=== PATIENT | male | born 1940 | race Caucasian/White ===

== ENCOUNTER → 2018-03-10 14:17 | Outpatient (CLI) | payer MEDICARE, BC, SELFPAY ==
--- NOTE | 2018-03-10 14:21 | DI.RAD.S_ITS ---
PROCEDURE: XR LUMBAR SPINE MIN 4V INDICATIONS: lower spinal pain TECHNIQUE: 5 views of the lumbar spine were acquired. COMPARISON: None. FINDINGS: Bones: No fracture or focal osseous destruction. Anatomic alignment. Diffuse facet arthropathy. Endplate sclerosis and spurring with moderate narrowing of the L4-L5 disc space and L1-L2 disc space. Mild L2-L3 disc space narrowing. Soft tissues: Overlying bowel gas pattern is normal. No suspicious soft tissue calcifications. Oblique images: No pars defects. IMPRESSION: Multilevel lumbar disc degeneration and facet arthropathy, most pronounced at L1-L2. Dictated by: Dilip Malhotra M.D. on 03/10/2018 at 16:27 Approved by: Dilip Malhotra M.D. on 03/10/2018 at 16:28
== END ==
PROVIDERS: PCP Internal Medicine; Visit Provider Physical Medicine & Rehabilitation
DX: M54.5 Low back pain (principal); M51.16 Intervertebral disc disorders with radiculopathy, lumbar region; M47.26 Other spondylosis with radiculopathy, lumbar region; M47.27 Other spondylosis with radiculopathy, lumbosacral region
CPT/HCPCS: 72110; 99215

== ENCOUNTER 2018-04-26 09:18 | Outpatient (CLI) | payer MEDICARE, BC, SELFPAY ==
[2018-04-26] VITALS (8 sets, daily range): BP systolic 119–129; BP diastolic 73–83; PULSE 70–80; RESP 16–18; TEMP 36.6; O2SAT 98–100
--- NOTE | 2018-04-26 09:21 | DI.RAD.S_ITS ---
PROCEDURE: PAIN L/S FACET INJ/BLK 1ST SULMA COMPARISON: None. INDICATIONS: SPONDYLOSIS FINDINGS: Fluoroscopic spot filming was performed to verify placement of spinal needles at the L3-L4, L4-L5 level(s), as labeled on the films. Appropriate location(s) of the needle tip(s) was confirmed by injection of iodinated contrast. Dictated by: Dilip Malhotra M.D. on 04/26/2018 at 12:58 Approved by: Dilip Malhotra M.D. on 04/26/2018 at 12:59
[2018-04-26] MEDS: MIDAZOLAM 5 MG/5 ML VIAL IV (10:18)
[2018-04-26] MEDS: BUPIVACAINE 0.5% (PF) VIAL 2 ML INJ (10:28)
[2018-04-26] MEDS: BETAMETHASONE 30 MG/5 ML MDV 12 MG INJ (10:29)
[2018-04-26] MEDS: LIDOCAINE 1% 20 ML INJ 10 ML INJ (10:29)
[2018-04-26] MEDS: IOPAMIDOL 15 ML VIAL 3 ML INJ (10:29)
[2018-04-26] MEDS: fentaNYL 100 MCG/2 ML INJ 50 MCG IV (10:30)
--- NOTE | 2018-04-26 10:40 | P.PCN_ITS ---
Procedures Date/Time Date of procedure: 04/26/18 Time of procedure: 10:38 General Procedure description: PREOP DIAGNOSIS 1. FACET ARTHROPATHY 2. AXIAL LBP 3. MULTILEVEL DDD POST OP DIAGNOSIS 1. FACET ARTHROPATHY 2. AXIAL LBP 3. MULTILEVEL DDD PROCEDURES 1. FLUORSCOPICALLY GUIDED CONTRAST CONTROLLED FACET JOINT INJECTIONS BILATERAL L3/4, L4/5 PHYSICIAN: Randolph Crump DO INDICATIONS: Marisa is referred by Dr. Garcia for treatment of Axial LBP FINDINGS Multilevel Facet Arthropathy with Clinically significant axial LBP DESCRIPTION OF PROCEDURE Fluoroscopically guided, contrast-controlled bilateral L3/4, L4/5 facet joint injections. Following denial of allergy and review of potential side effects and complications, including, but not necessarily limited to, infection, allergic reaction, local tissue breakdown, stroke, temporary or permanent nerve injury, paralysis, and possible , the patient indicated that the patient understood and agreed to proceed. An informed consent document was signed by the patient, witnessed by a nurse, and placed in the patient's chart. Additionally, other treatment options including medications, modalities, and physical therapy were reviewed with the patient. After review of previous anaesthesic history and IV conscious sedation the patient was deemed safe to proceed with todays procedure with IV conscious sedation as ASA class II designation. Safety time-out was performed to confirm patient ID, procedure to be performed and site of procedure. IV sedation was accomplished with a combination of 3mg of Versed and 50mcg of Fentanyl was administered by the RN after DO order, titrated to patient comfort during the course of the procedure while the patient remained responsive to all verbal commands. In the prone position, following sterile prep and drape of the lumbar region, the posterior aspect of the L3/4, L4/5 facet joints were identified fluoroscopically. The skin was anesthetized via a 25-gauge 1.5-inch needle with 1% lidocaine solution into the corresponding facet joints. At this point, a 22- gauge 3.5-inch spinal needle was atraumatically introduced and advanced under fluoroscopic guidance into the corresponding facet joints. Following negative aspiration, injections of approximately 0.2-cc of Isovue 200 confirmed interarticular placement without vascular uptake. The identical procedure was then performed at the L3/4, L4/5 facet joints on the left. Radiological data, including multiple fluoroscopic views of the lumbosacral spine, reveal a spinal needle at the L3/4, L4/5 facet joints bilaterally. Subsequent views show flow of contrast material both superiorly and inferiorly within the joint space without vascular or intrathecal uptake. At this point, a total of 0.5 cc including a mixture of 0.25 cc Marcaine and 0.25 cc betamethasone was injected without complication into each of the corresponding facet joints. The patient tolerated the procedure well without signs or symptoms of complications prior to transfer to the recovery area continued monitoring without incident. The patient was then transferred to the recovery area where they were observed for an appropriate period of time after the injection. The patient reported a VAS score of 7 prior to the procedure and a post-procedure VAS of 0. Total Fluoroscopy Time: 20.3 seconds Total Conscious Sedation Time: 24min POST OP INSTRUCTIONS The patient was provided a Pain Log to continue to record their response to the target-specific procedure prior to follow-up visit with their referring physician. Additionally, specific post-injection care instructions and a contact number to our office were provided if concerns arise regarding possible complications associated with the procedure are suspected. Randolph Crump DO Complications: none
--- NOTE | 2018-04-26 10:43 | PC.NURSE ---
pt tolerated procedure well. Able to get off gurney and into w/c with minimal assist. Pt transferred to pre procedure room with Amanda SAINI for continued monitoring.
--- NOTE | 2018-04-27 16:20 | PC.NURSE ---
Follow up call made post procedure. Pt reports feeling like I'm 41years old again. he says he can put on his own socks and denies any pain. Pt denies any side effects from steroids.
== END 2018-04-26 11:06 | disposition home or self-care (01) ==
LOC: RAD 09:21
PROVIDERS: PCP Internal Medicine; Visit Provider Physical Medicine & Rehabilitation
DX: M47.816 Spondylosis without myelopathy or radiculopathy, lumbar region (principal); M47.817 Spondylosis without myelopathy or radiculopathy, lumbosacral region; M54.5 Low back pain; M51.36 Other intervertebral disc degeneration, lumbar region; M96.1 Postlaminectomy syndrome, not elsewhere classified
CPT/HCPCS: 64493; 64494; 99152; J0702; J2250; J3010

== ENCOUNTER 2018-05-25 11:49 | Outpatient (CLI) | payer MEDICARE, BC, SELFPAY ==
--- NOTE | 2018-05-25 11:51 | DI.RAD.S_ITS ---
PROCEDURE: PAIN L/S FACET INJ/BLK 1ST SULMA INDICATIONS: SPONDYLOSIS FINDINGS: 5 intraoperative fluoroscopy images demonstrate placement of needles at L3, L4 and L5 bilaterally for median branch block. IMPRESSION: Fluoroscopy for pain management. Dictated by: Emma Garcia M.D. on 05/25/2018 at 15:42 Approved by: Emma Garcia M.D. on 05/25/2018 at 15:44
[2018-05-25 12:34] VITALS: BP 124/76; PULSE 69; RESP 16; TEMP 36.3; O2SAT 99
--- NOTE | 2018-05-25 12:59 | DI.RAD.S_ITS ---
PROCEDURE: XR LUMBAR SPINE MIN 4V INDICATIONS: Recent Fall with LBP and Coccxy pain TECHNIQUE: 5 views of the lumbar spine were acquired. COMPARISON: [facility], CR, XR LUMBAR SPINE MIN 4V, 03/10/2018, 14:22. FINDINGS: Bones: 5 nonrib-bearing vertebrae are present. There is normal bony alignment. Mildly displaced fracture of coccyx is noted. No vertebral body compression fractures. No suspicious bony lesions. There is mild to moderate degenerative disc disease scattered in the lower thoracic and lumbar spine. Moderate post severe facet arthropathy at L3-L4, L4-L5 and L5-S1. Soft tissues: Overlying bowel gas pattern is normal. No suspicious soft tissue calcifications. Oblique images: No pars defects. IMPRESSION: 1. Mildly displaced fracture of coccyx. 2. Degenerative changes as described. Dictated by: Emma Garcia M.D. on 05/25/2018 at 17:32 Approved by: Emma Garcia M.D. on 05/25/2018 at 17:35
[2018-05-25 13:40] VITALS: BP 136/72; PULSE 73; RESP 18; O2SAT 99
[2018-05-25] MEDS: MIDAZOLAM 5 MG/5 ML VIAL IV (13:40)
[2018-05-25] MEDS: BUPIVACAINE 0.5% (PF) VIAL 2 ML INJ (13:43)
[2018-05-25] MEDS: fentaNYL 100 MCG/2 ML INJ 50 MCG IV (13:44)
[2018-05-25] MEDS: LIDOCAINE 1% 20 ML INJ 10 ML INJ (13:44)
[2018-05-25 13:45] VITALS: BP 116/81; PULSE 71; RESP 18; O2SAT 99
[2018-05-25] MEDS: IOPAMIDOL 15 ML VIAL INJ (13:45)
[2018-05-25] MEDS: BETAMETHASONE 30 MG/5 ML MDV 12 MG INJ (13:45)
[2018-05-25 13:50] VITALS: BP 125/78; PULSE 74; RESP 18; O2SAT 99
--- NOTE | 2018-05-25 14:02 | PM.PROC.1 ---
Procedures Date/Time Date of procedure: 05/25/18 Time of procedure: 14:03 General Procedure description: POST OP DIAGNOSIS 1. FACET ARTHROPATHY PROCEDURES 1. BILATERAL L3, L4 AND L5 MB BLOCKS PHYSICIAN: DO FREIDA King Enrique is referred by Dr. Garcia for treatment of Bilateral Axial LBP. DESCRIPTION OF PROCEDURE Fluoroscopically guided, contrast-controlled bilateral L3, L4 AND L5 medial branch blocks with 0.5cc of 0.5% Marcaine. Following denial of allergy and review of potential side effects and complications, including, but not necessarily limited to, infection, allergic reaction, local tissue breakdown, nerve injury, paralysis, stroke and possible , the patient indicated that the patient understood and agreed to proceed. An informed consent document was signed by the patient, witnessed by a nurse, and placed in the patient's chart. After review of previous anaesthesic history and IV conscious sedation the patient was deemed safe to proceed with todays procedure with IV conscious sedation as ASA class II designation. Safety time-out was performed to confirm patient ID, procedure to be performed and site of procedure. IV sedation was accomplished with a combination of 3mg of Versed and 50mcg of Fentanyl was administered by the RN after DO order, titrated to patient comfort during the course of the procedure while the patient remained responsive to all verbal commands In the prone position, following sterile prep and drape of the lumbar region, the right L3, L4 and L5 anatomical location of the medial branch of the dorsal ramus was identified fluoroscopically. Subsequently an anesthetic skin wheal using 1% lidocaine solution was initiated at each of the anatomical spots. Subsequently then a 22-gauge 3.5-inch spinal needle was atraumatically introduced and advanced under fluoroscopic guidance at each of the corresponding sites at the right L3, L4 and L5 MB. After negative aspiration, 0.2 cc of Isovue 200 was injected, confirming placement without vascular or intrathecal uptake. Subsequently then 0.5 cc of 0.5% Marcaine solution was injected at each of the corresponding sites at the right L3, L4 and L5 medial branch locations. The identical procedure was replicated on the left. The patient tolerated the procedure well without signs or symptoms of complications. The patient tolerated the procedure well without signs or symptoms of complications prior to transfer to the recovery area continued monitoring without incident. Post-procedure, the patient was monitored initiating provocative activities to measure the amount of relief from block of the facetogenic pain. The patient reported a VAS of 7 prior to the procedure and a post-procedure VAS of 1. It has been a pleasure to assist in the diagnostic and therapeutic care of your patient. Total Fluoroscopy Time: 24.8 seconds Total Conscious Sedation Time: 24min POST OP INSTRUCTIONS The patient was provided with a Pain Log to complete over the next several hours and subsequent days prior to the patient's follow up with the ordering physician. If the patient has mutual fund analyst relief to the solution applied, then they may be a candidate for medial branch rhizotomy. The patient is aware, was provided, once again, with a Pain Log and will follow up with the referring physician for review and clinical correlation Randolph Crump DO Complications: none
[2018-05-25 14:05] VITALS: BP 148/83; PULSE 72; RESP 16; O2SAT 99
--- NOTE | 2018-05-25 14:07 | PC.NURSE ---
ACCEPTED CARE OF PT IN POST PROC AREA IN STABLE CONDITION
--- NOTE | 2018-05-25 14:08 | PC.NURSE ---
Pt tolerated procedure well. Able to get off table with minimal assist. Transferred pt via wheelchair awake and alert to pre procedure room for continued monitoring with Amanda SAINI.
[2018-05-25 14:10] VITALS: BP 138/85; PULSE 72; RESP 16; O2SAT 98
== END 2018-05-25 14:20 | disposition home or self-care (01) ==
LOC: RAD 11:50
PROVIDERS: PCP Internal Medicine; Visit Provider Physical Medicine & Rehabilitation
DX: M47.816 Spondylosis without myelopathy or radiculopathy, lumbar region (principal); M47.817 Spondylosis without myelopathy or radiculopathy, lumbosacral region
CPT/HCPCS: 64493; 64494; 72110; 99152; J0702; J2250; J3010

== ENCOUNTER → 2018-06-24 13:01 | Outpatient (CLI) | payer MEDICARE, BC, SELFPAY ==
--- NOTE | 2018-06-24 13:03 | DI.MRI.S_ITS ---
PROCEDURE: MR LUMBAR SPINE WO/W CON INDICATIONS: Spondylosis with radiculopathy, lumbosacral TECHNIQUE: Noncontrast sagittal T1 spin echo and T2 fast spin echo, sagittal STIR, axial T1 and T2 fast spin echo through the lumbar spine. In cases with scoliosis, additional coronal T2 fast spin echo may be performed. Dedicated oblique coronal images of the sacrum were obtained with T1-weighted and STIR images. After the administration of contrast, sagittal and axial T1 spin echo with fat saturation through the lumbar spine. COMPARISON: [facility], CR, XR LUMBAR SPINE MIN 4V, 05/25/2018, 12:57. [facility], CR, XR LUMBAR SPINE MIN 4V, 03/10/2018, 14:22. Outside Facility, RG, MRI L-SPINE W/WO CONTRAST, 06/30/2017, 13:50. FINDINGS: Image quality: Excellent. Alignment and curvature: Minimal retrolisthesis is seen at the L1-L2 level. Marrow: Marrow is of normal overall signal. No acute vertebral body compression fractures. No suspicious marrow enhancement. Fatty metaplasia can be seen, particularly involving the sacrum. Spinal cord: Conus medullaris terminates at the L1 level. Visualized spinal cord demonstrates normal signal, without suspicious enhancement. Paraspinous soft tissues: No paravertebral masses or abnormal enhancement. Left-sided simple appearing renal cysts are seen, which measure up to 3.8 cm. Distal aortic ectasia is seen, which measures up to 2.9 cm. T12-L1: Mild loss of disc height is seen. Loss of disc signal is seen. Moderate generalized disc bulge is seen. Endplate edema can be seen at this level, which is slightly improved compared to the prior outside examination. There is stable enhancement seen associated with the endplate edema. Chronic appearing Schmorl's nodes are seen. L1-L2: Moderate loss of disc height is seen. Loss of disc signal is seen. Mild endplate edema can be seen, with associated mild enhancement. Moderate generalized disc bulge is seen. Mild facet joint hypertrophy is seen. Moderate bilateral neural foraminal narrowing is seen. [id number]-nnaarksi central canal narrowing is seen. When comparison is made with the prior examination, these findings are similar. L2-L3: Mild loss of disc height is seen. Loss of disc signal is seen. Endplate edema can be seen, which is overall similar to the 2018 examination, with slight decrease in L2 and slight increase within L3. There is associated mild postcontrast enhancement. Moderate disc bulge is seen, which is eccentric to the right. There is mild to moderate right-sided and mild left-sided neural foraminal narrowing seen. Mild central canal narrowing is seen. When comparison is made with the prior examination, these findings are similar. L3-L4: The disc height is well-preserved. Loss of disc signal is seen at this level. Moderate generalized disc bulge is seen. There is a mild central disc protrusion. Moderate facet joint hypertrophy is seen. At least moderate bilateral neural foraminal narrowing is seen. Mild central canal narrowing is seen. Mild enhancement of the posterior elements can be seen at this level, as on series 9 image 11 and on series 10 image 23. This enhancement is similar to the prior examination. L4-L5: Mild to moderate loss of disc height and disc signal are seen. Moderate disc bulge is seen. There is a faintly seen annular fissure present posteriorly, with associated enhancement. There is mild to moderate bilateral neural foraminal narrowing seen. Mild central canal narrowing is seen. When comparison is made with the prior examination, these findings are similar. L5-S1: The disc height is well-preserved. Loss of disc signal is seen at this level. Mild to moderate disc bulge is seen, which is eccentric to the right. There is mild to moderate facet hypertrophy seen. There is moderate left-sided and no significant right-sided neural foraminal narrowing seen at the significant central canal narrowing is seen. When comparison is made with the prior examination, these findings are similar. IMPRESSION: Multiple levels of degenerative change are seen, which are similar to outside MRI one year previously. Endplate edema and enhancement can be seen superiorly, which is overall mildly decreased compared to the prior examination, which is attributed to degenerative change. Differential diagnosis includes neoplasm, yet this is considered to be less likely. There is also stable enhancement seen involving the posterior elements centrally at the L3-L4 level. Dictated by: Hoang Carr M.D. on 06/24/2018 at 13:49 Approved by: Hoang Carr M.D. on 06/24/2018 at 14:07
== END ==
PROVIDERS: PCP Internal Medicine; Visit Provider Physical Medicine & Rehabilitation
DX: M47.27 Other spondylosis with radiculopathy, lumbosacral region (principal); M47.26 Other spondylosis with radiculopathy, lumbar region
CPT/HCPCS: 72158

== ENCOUNTER → 2018-06-28 06:43 | Outpatient (CLI) | payer MEDICARE, BC, SELFPAY ==
--- NOTE | 2018-06-28 06:46 | DI.MRI.S_ITS ---
PROCEDURE: MR PELIS WO/W CON INDICATIONS: Elevated PSA. TECHNIQUE: Coronal HASTE, axial T1 FSE with fat saturation, 3-plane nonbreath-hold T2 FSE. After the administration of contrast, dynamic axial, delayed axial and coronal VIBE or 2-D FLASH with fat saturation through the pelvis. Optional diffusion weighted imaging and ADC may be performed. COMPARISON: None. FINDINGS: Image quality: Diffusion weighted and dynamic contrast enhanced images are diagnostic. Prostate: Gland size is 5.9 x 4.4 x 5.3 cm; ellipsoid gland volume is 72 mL. The prostate is enlarged and heterogeneous in appearance. Lesion size(s): Lesion 1: 3.4 x 2.4 x 2.1 cm Lesion 2: 3.2 x 3.3 x 3.4 cm Lesion location(s) (sector): Lesion 1: Left lateral peripheral zone in the mid gland. Lesion 2: Posterior peripheral zone at the apex predominately involving the left side with extension across midline as well as anteriorly into the transition zone. Lesion description: Lesion 1: There is an oval lesion with indistinct margins. There is associated lateral bulging of the prostatic capsule with enhancement extending to the pelvic wall suspicious for extraprostatic invasion. Lesion 2: There is a wedge or T-shaped lesion with indistinct margins. T2 weighted imaging (T2WI) morphology score: Lesion 1: 5 Lesion 2: 5 Diffusion weighted imaging (DWI) morphology score: Lesion 1: 5. There is focal marked hypointensity on the ADC with mild hyperintensity on DWI. Lesion 2: 3. There is moderate hypointensity on ADC and mild hyperintensity on DWI. Dynamic contrast enhancement (DCE): Lesion 1: Present. Lesion 2: Present. Lesion PI-RADS score: Lesion 1: PI-RADS 5 Lesion 2: PI-RADS 4 Genitourinary system: Bladder wall thickness is normal. Distal ureters are non distended. Bowel and peritoneum: No pathologic free pelvic fluid. Inferior colon and small bowel loops are normal in caliber. Nodes and vessels: No pelvic or inguinal adenopathy by size criteria. Iliac vessels are normal in caliber. Soft tissues: No inguinal hernias. Bones: Marrow demonstrates normal overall signal, without definite suspicious lesions to suggest metastases. IMPRESSION: 1. Demonstration of 2 suspicious ill-defined lesions predominantly involving the left peripheral zone with a maximum score of PI-RADS 5. Given the contiguous appearance of the lesions, this may represent one infiltrative lesion. 2. Left lateral bulging of the prostatic capsule with adjacent enhancement suspicious for extraprostatic extension to the pelvic sidewall. Dictated by: Medardo Rios M.D. on 06/28/2018 at 19:01 Approved by: Medardo Rios M.D. on 06/28/2018 at 19:19
== END ==
PROVIDERS: PCP Internal Medicine; Visit Provider Physical Medicine & Rehabilitation
DX: R97.20 Elevated prostate specific antigen [PSA] (principal); N40.0 Benign prostatic hyperplasia without lower urinary tract symptoms; N42.9 Disorder of prostate, unspecified; A41.9 Sepsis, unspecified organism; N39.0 Urinary tract infection, site not specified; M47.27 Other spondylosis with radiculopathy, lumbosacral region
CPT/HCPCS: 72197; A9579

== ENCOUNTER → 2018-08-30 08:32 | Outpatient (CLI) | payer MEDICARE, BC, SELFPAY ==
--- NOTE | 2018-08-30 | DI.ECHO.S_ITS ---
[facility] +---------+ : : [address] : [place] [address] : : : : [id number] : : : : Phone: [phone] Echocardiogram Report + + :Name: IVANA JENKINS Study Date: 08/30/2018 Height: 73 in : :[facility] Exam Location: [facility] Weight: 185 lb : : Gender: Male BSA: 2.1 m2 : :: 1940 Age: 78 yrs BP: 120/75 mmHg: :Reason For Study: CAD/ History of TIA : : Performed By: Mallory Page : :Referring: NICHOLAS CISNEROS L : + + Interpretation Summary The left ventricle is normal in size. The ejection fraction is estimated to be 65-70%. There are no focal wall motion abnormalities. Diastolic parameters suggest probable normal left ventricular diastolic function and normal filling pressures. The right ventricle is at the upper limits of normal in size. The right ventricular systolic function is normal. The right ventricular systolic pressure is estimated to be at least 28 mmHg based on an estimated right atrial pressure of 3 mm Hg. The left atrium is moderately dilated. The right atrium is mildly dilated. There is no significant valvular heart disease. The ascending aorta is mildly enlarged. Procedure: A two-dimensional transthoracic echocardiogram with color flow and Doppler was performed. The study quality was technically adequate. There is no prior echocardiogram noted for this patient. The patient was in normal sinus rhythm during the exam. Left Ventricle: The left ventricle is normal in size. There is normal left ventricular wall thickness. The ejection fraction is estimated to be 65-70%. There are no focal wall motion abnormalities. Diastolic parameters suggest probable normal left ventricular diastolic function and normal filling pressures. Right Ventricle: The right ventricle is at the upper limits of normal in size. The right ventricular systolic function is normal. Atria: The left atrium is moderately dilated. The right atrium is mildly dilated. There is no Doppler evidence for an interatrial shunt. Mitral Valve: The mitral valve leaflets are slightly calcified. There is mild mitral annular calcification. There is trace mitral regurgitation. Aortic Valve: The aortic valve is trileaflet. The aortic valve opens well. There is trace aortic regurgitation. Tricuspid Valve: The tricuspid valve is normal in structure and function. There is trace tricuspid regurgitation. The right ventricular systolic pressure is estimated to be at least 28 mmHg based on an estimated right atrial pressure of 3 mm Hg. Pulmonic Valve: The pulmonic valve is not well visualized. There is no significant valvular heart disease. Great Vessels: The aortic root is normal size. The ascending aorta is mildly enlarged. The aortic arch could not be visualized. The pulmonary artery is not well visualized, but is probably normal size. The IVC is of normal diameter and collapses greater than 50% with a sniff. This suggests a low right atrial pressure of 3 mm Hg. Pericardium/ Pleura There is no pericardial effusion. There is no pleural effusion. MMode/2D Measurements & Calculations LVIDd: 4.4 cm Ao root diam: 3.4 cm LVIDs: 2.9 cm asc Aorta Diam: 3.7 cm FS: 33.4 % EPSS: 0.11 cm IVSd: 0.79 cm LVPWd: 0.93 cm LV youssef. diameter/BSA (cm/m^2): 2.1 LV sys. diameter/BSA (cm/m^2): 1.4 LA A2 area: 28.3 cm2 RA long axis: 5.5 cm LA A4 area: 23.5 cm2 RA area: 21.8 cm2 LA length (vol): 6.0 cm RA vol: 73.4 ml LA vol: 94.1 ml RA : 35.2 ml/m2 LA vol index: 45.2 ml/m2 IVC diam: 2.0 cm RVD1 (basal): 4.7 cm Doppler Measurements & Calculations Ao V2 max: 149.1 cm/sec LVOT Max Axel: 127.9 cm/sec Ao V2 mean: 109.5 cm/sec LV V1 max P.5 mmHg Ao max P.9 mmHg LV V1 VTI: 27.3 cm Ao mean P.1 mmHg sev ratio: 0.88 Ao V2 VTI: 31.0 cm MV E max axel: 76.1 cm/sec TR max axel: 250.1 cm/sec MV A max axel: 83.5 cm/sec TR max P.0 mmHg MV E/A: 0.91 PA V2 max: 73.0 cm/sec Med Peak E' Axel: 6.6 cm/sec PA V2 mean: 56.0 cm/sec E/E' med: 11.5 PA mean P.3 mmHg Lat Peak E' Axel: 7.8 cm/sec PA Accel Time: 0.12 sec E/E' lat: 9.8 E/e' average: 10.6 MV dec time: 0.22 sec MV P1/2t: 64.6 msec MV P1/2t max axel: 77.3 cm/sec MVA(P1/2t): 3.4 cm2 Reading Physician:01:24 PM
--- NOTE | 2018-08-30 | DI.MRI.S_ITS ---
PROCEDURE: MR ANGIO HEAD WO CON INDICATIONS: CORONARY ARTERY DISEASE,HISTORY OF TIA TECHNIQUE: Noncontrast axial 3-D [id number] MR angiogram, with 3-dimensional maximum intensity projection (MIP) reformats of the internal carotid arteries and posterior circulation then performed. COMPARISON: [facility], , CAROTID DOPPLER BI, 08/30/2018, 10:43. FINDINGS: Image quality: Excellent. Anterior circulation: Intracranial internal carotid arteries demonstrate normal size and intraluminal flow signal. The flow within the paired anterior cerebral arteries is normal and symmetric. The flow within the middle cerebral arteries is normal and symmetric. The anterior communicating artery is seen. No stenoses, occlusions, or aneurysms. Posterior circulation: The left vertebral artery is dominant. The right vertebral artery terminates at PICA. Visualized portions of the vertebral arteries demonstrate normal caliber. The basilar artery is normal. The flow within the posterior cerebral arteries is normal and symmetric. No stenoses, occlusions, or aneurysms. IMPRESSION: 1. No high-grade stenosis or occlusion in anterior circulation. 2. The right vertebral artery terminates at PICA, which is an anatomic variant. Otherwise normal posterior circulation. Dictated by: Emma Garcai M.D. on 08/30/2018 at 12:32 Approved by: Emma Garcia M.D. on 08/30/2018 at 17:49
--- NOTE | 2018-08-30 | DI.US.S_ITS ---
PROCEDURE: US CAROTID DOPPLER BI INDICATIONS: CORONARY ARTERY DISEASE,HISTORY OF TIA TECHNIQUE: Color and pulse Doppler interrogation was performed of both carotid systems, with image documentation and velocity measurements. COMPARISON: [facility], MR, MR ANGIO HEAD WO CON, 08/30/2018, 11:25. FINDINGS: Stenosis calculations are based on SRU (Society of Radiologists in Ultrasound) criteria. Right side: Brachial blood pressure: 120/70 mm Hg. Common carotid artery peak systolic velocity: 92 cm/sec. Internal carotid artery peak systolic velocity: 90 cm/sec. Internal carotid artery end diastolic velocity: 23 cm/sec. External carotid artery peak systolic velocity: 110 cm/sec. ICA/CCA peak systolic ratio: 0.98 . [place] scale imaging description: Calcified plaques at the bifurcation Percent internal carotid artery stenosis: Less than 50%. Vertebral artery: Unable to definitely visualize. Left side: Brachial blood pressure: 123/66 mm Hg. Common carotid artery peak systolic velocity: 70 cm/sec. Internal carotid artery peak systolic velocity: 99 cm/sec. Internal carotid artery end diastolic velocity: 33 cm/sec. External carotid artery peak systolic velocity: 69 cm/sec. ICA/CCA peak systolic ratio: 1.41. [place] scale imaging description: Calcified plaques at the bifurcation Percent internal carotid artery stenosis: Less than 50%. Vertebral artery: Flow direction is antegrade. IMPRESSION: 1. Less than 50% internal carotid artery stenoses bilaterally. 2. Antegrade left vertebral artery flow. 3. Nonvisualization of the right vertebral artery, which could be occluded or severely stenotic. Recommend neck MRI angiogram for further evaluation. Dictated by: Emma Garcia M.D. on 08/30/2018 at 12:56 Approved by: Emma Garcia M.D. on 08/30/2018 at 13:16
--- NOTE | 2018-08-30 | DI.MRI.S_ITS ---
PROCEDURE: MR HEAD/BRAIN WO CON INDICATIONS: CORONARY ARTERY DISEASE,HISTORY OF TIA TECHNIQUE: Non-contrast axial T1 spin echo, axial T2 fast spin echo, sagittal and axial FLAIR, coronal T2 fast spin echo, axial gradient echo, axial diffusion and ADC through the brain. COMPARISON: None. FINDINGS: Image quality: Suboptimal. The patient was not able to tolerate the head coil. CSF spaces: Ventricles appear symmetric in size and shape. Basal cisterns are patent. No extra-axial fluid collections. Brain: No intracranial bleeds or mass effects. There is cerebral volume loss for age. There are periventricular and deep white matter chronic small vessel ischemic changes. Brainstem appears normal. Diffusion-weighted images show no acute ischemic insults. No chronic ischemic insults. Normal intravascular flow voids are present. Skull and face: Calvarial bone marrow is normal in signal. Orbits are normal. Sinuses: Sinuses and mastoids are clear. IMPRESSION: 1. No acute intracranial abnormalities. 2. Cerebral volume loss and chronic microvascular ischemic changes. 3. Suboptimal examination due to the inability to use the head coil. Dictated by: Emma Garcia M.D. on 08/30/2018 at 12:34 Approved by: Emma Garcia M.D. on 08/30/2018 at 17:50
== END ==
PROVIDERS: PCP Internal Medicine; Visit Provider Internal Medicine
DX: I65.23 Occlusion and stenosis of bilateral carotid arteries (principal); I25.10 Atherosclerotic heart disease of native coronary artery without angina pectoris; I77.89 Other specified disorders of arteries and arterioles; Z86.73 Personal history of transient ischemic attack (TIA), and cerebral infarction without residual deficits
CPT/HCPCS: 70544; 70551; 93306; 93880

== ENCOUNTER → 2018-09-23 05:58 | Outpatient (CLI) | payer MEDICARE, BC, SELFPAY ==
--- NOTE | 2018-09-23 | DI.MRI.S_ITS ---
PROCEDURE: MR PELIS WO/W CON INDICATIONS: Mass TECHNIQUE: Noncontrast coronal T1 spin echo and STIR, sagittal T1 spin echo with fat saturation and STIR, axial T1 spin echo and T2 fast spin echo with fat saturation. After the administration of contrast, axial/sagittal/coronal T1 spin echo with fat saturation through the pelvis. COMPARISON: [facility], , MR PELVIS WO/W CON, 06/28/2018, 7:31. FINDINGS: Image quality: Excellent. Bones: The visualized bone marrow demonstrates normal signal on all sequences. The overlying cortex appears intact. No abnormal intraosseous enhancement. Soft tissues: No new soft tissue masses are visualized. The midline and left aspect of the central zone of the prostate parenchyma again shows a contrast enhancing lesion which is slightly less evident than on the prior study, perhaps reflecting response to therapy. This mass measures up to 4.0 cm craniocaudad, 3.9 cm transverse and approximately 3.6 cm in maximal AP dimension. The adjacent scanned muscles demonstrate normal overall bulk and internal signal. Subcutaneous tissues appear normal as well. No abnormal soft tissue enhancement. IMPRESSION: Slight interval improvement in the appearance of the left prostate gland where a contrast enhancing 4.0 x 3.9 x 3.6 cm mass is again seen but slightly diminished in the degree of contrast enhancement. This appears to represent a primary prostatic neoplasm that has infiltrated this portion of the prostate, but not invaded the adjacent musculature. No adenopathy or osseous metastatic disease is found. Dictated by: Leandro Martinez M.D. on 09/26/2018 at 15:36 Approved by: Leandro Martniez M.D. on 09/26/2018 at 15:41
== END ==
PROVIDERS: PCP Internal Medicine; Visit Provider Internal Medicine
DX: N42.89 Other specified disorders of prostate (principal)
CPT/HCPCS: 72197; A9579

== ENCOUNTER → 2018-12-02 16:09 | Outpatient (CLI) | payer MEDICARE, BC, SELFPAY ==
--- NOTE | 2018-12-02 | DI.MRI.S_ITS ---
PROCEDURE: MR ABDOMEN WO CON INDICATIONS: MASS ON LOWER LEFT BACK. Prostate cancer. TECHNIQUE: Axial 2-D FLASH in- and [id number], axial breath-hold T2 FSE, axial STIR FSE. Optional contrast may be given, followed by axial 2-D FLASH with fat saturation acquired over the lesion of concern. COMPARISON: MRI prostate 09/23/2018. FINDINGS: Image quality: Excellent. Region of interest: A skin marker overlying the left back superior to the iliac crest. No underlying mass no suspicious enhancement or restricted diffusion. The left back subcutaneous tissues are homogeneous and symmetric to the contralateral side. Bones: Nearby osseous structures demonstrate normal overall marrow signal. No focal lesion identified. Left kidney superior pole simple cyst measuring 3.6 cm. No hydronephrosis. Visualized portions of the liver, gallbladder, spleen, pancreas, adrenal glands are unremarkable. No free fluid. No retroperitoneal adenopathy. The prostate gland is outside the field of view. No pleural effusion. IMPRESSION: No mass or suspicious signal abnormality demonstrated in the left back at the region of interest. Dictated by: Andrey Espinal M.D. on 12/05/2018 at 12:19 Approved by: Andrey Espinal M.D. on 12/05/2018 at 12:30
== END ==
PROVIDERS: PCP Internal Medicine; Visit Provider Internal Medicine
DX: C61 Malignant neoplasm of prostate (principal); R22.2 Localized swelling, mass and lump, trunk; N28.1 Cyst of kidney, acquired
CPT/HCPCS: 74181

== ENCOUNTER 2019-01-22 14:41 | Emergency (ER) | payer MEDICARE, BC, SELFPAY ==
[2019-01-22 14:51] VITALS: BP 129/90; PULSE 104; RESP 20; TEMP 36.3; O2SAT 97
--- NOTE | 2019-01-22 15:20 | PC.NURSE ---
Attempted to irrigate bocanegra, unsuccessful no return or urine or irrigating saline, approx 50 mls instilled. Pt extremely uncomfortable. Provider aware.
--- NOTE | 2019-01-22 15:38 | PC.NURSE ---
Removed bocanegra, pt states relief of pain upon removal.
[2019-01-22] MEDS: IBUPROFEN 400 MG TABLET 800 MG PO (15:43)
[2019-01-22] MEDS: PHENAZOPYRIDINE 100 MG TABLET 200 MG PO (15:43)
[2019-01-22 17:07] LABS: Appearance Urine UA CLOUDY; Bilirubin Urine UA NEGATIVE (NEGATIVE); Color Urine UA YELLOW; Glucose Urine UA NEGATIVE (Negative); Ketones Urine UA NEGATIVE (NEGATIVE); Leukocyte Esterase Urine UA 1+ (NEGATIVE); Nitrite Urine UA NEGATIVE (Negative); Occult Blood Urine UA 3+ (Negative); Protein Urine UA 2+ (Negative); Specific Gravity Urine UA 1.015 (1.000-1.035); Urobilinogen Urine UA 0.2 E.U./dL (0.2); pH Urine UA 7.5 (4.5-8.0)
[2019-01-22 17:33] LABS: Amorphous Sediment Urine 1+; Bacteria Urine Many (>30); Culture Indicated Urine Specimen Cultured; RBC Urine >100/HPF (0-5/HPF); WBC Urine 10-30/HPF (0-5/HPF)
[2019-01-22] MEDS: TRIMETH/SULFA 160/800 (DS) TABLET 1 TAB PO (18:33)
[2019-01-22 18:36] VITALS: BP 110/74; PULSE 76; RESP 18; O2SAT 96
--- NOTE | 2019-01-22 20:25 | ED_ITS ---
HPI - Male Genitourinary <Camille Kim, MATCH MARKER-BC - Last Filed: 01/22/19 20:31> General Chief complaint: Urogenital-Male Stated complaint: catheter issue Time Seen by Provider: 01/22/19 15:02 Source: patient and family Mode of arrival: Ambulatory Limitations: no limitations History of Present Illness HPI Narrative: The patient is a 78-year-old male former smoker with history BPH who presents with his for chief complaint of a Russell catheter problem. Patient states that he had a Revolix laser TURP done 2 days ago at [facility] by Dr stearns. The patient states that he was discharged with a Russell catheter, as opposed to follow up in clinic for a voiding trial tomorrow. He states that last night he noticed his Russell catheter was starting to hurt. This morning he was urinating around his Russell catheter. It subsequently became increasingly painful in his penis. He denies any fevers nausea vomiting diarrhea review. He states overall he feels well, he is just in a lot of pain because of his Russell catheter. Related Data Home Medications Medication Instructions Recorded Confirmed albuterol sulfate 90 mcg/actuation 1 puff INHALATION Q6H PRN 03/10/18 06/30/18 aerosol inhaler alprazolam 0.5 mg tablet 0.5 mg PO ONCE PRN tab 03/10/18 06/30/18 aspirin 81 mg tablet,delayed 81 mg PO DAILY 03/10/18 06/30/18 release diclofenac sodium 1.5 % topical package TOP PRN ml 03/10/18 06/30/18 drops-menthol 10 % roll-on combo pack fluticasone furoate 100 1 inhalation INHALATION DAILY 03/10/18 06/30/18 mcg/actuation blister powder for inhalation metformin 500 mg tablet 500 mg PO DAILY tab 03/10/18 06/30/18 montelukast 10 mg tablet 10 mg PO QPM 03/10/18 06/30/18 potassium PO PRN 03/10/18 06/30/18 pravastatin 10 mg tablet 10 mg PO DAILY 03/10/18 06/30/18 tiotropium bromide 2.5 2 puff INHALATION DAILY 03/10/18 06/30/18 mcg/actuation mist for inhalation triamterene 50 mg capsule 50 mg PO DAILY 03/10/18 06/30/18 tamsulosin 1 each PO .qday 06/16/18 06/30/18 cefpodoxime 200 mg tablet PO #28 tab 06/30/18 06/30/18 Previous Rx's Medication Instructions Recorded tramadol 50 mg tablet 50 mg PO TID PRN #60 tab 06/30/18 sulfamethoxazole-trimethoprim 1 tab PO BID #14 tab 01/22/19 [Bactrim DS] Allergies Allergy/AdvReac Type Severity Reaction Status Date / Time oxycodone AdvReac Intermediate lethargic Verified 06/30/18 12:01 and tired Review of Systems <SANDY Hahn - Last Filed: 01/22/19 20:31> Review of Systems Narrative: GENERAL: Denies chills, fatigue, malaise, fever, sweats. HEENT: Denies sinus pain, ear pain, sore throat, difficulty swallowing, dizziness. RESPIRATORY: Denies dyspnea, cough, wheezing, hemoptysis, sputum. CARDIOVASCULAR: Denies chest pain, palpitations, orthopnea, edema, GASTROINTESTINAL: Denies nausea, vomiting, abdominal pain, diarrhea, constipation, melena. : See HPI MUSCULOSKELETAL: denies weakness, joint pain, or bony pain SKIN: Denies rash, skin lesions, or other NEUROLOGIC: Denies weakness, headache, numbness, change in speech, confusion, seizures, incoordination. PSYCHIATRIC: No concerning psychosocial issues. 12 point review of systems is negative except for those stated above Patient History <SANDY Hahn - Last Filed: 01/22/19 20:31> Social History Smoking Status: Former smoker Exam <SANDY Hahn - Last Filed: 01/22/19 20:31> Narrative Exam Narrative: GENERAL: This is a well-nourished, well-developed patient, appears uncomfortable HEAD: Atraumatic. Normocephalic. No temporal or scalp tenderness. EYES: Pupils equal round and reactive. Extraocular motions intact. No scleral icterus. No injection or drainage. ENT: Nose without bleeding, purulent drainage or septal hematoma. Throat without erythema, tonsillar hypertrophy or exudate. Uvula midline. Airway patent. NECK: Trachea midline. No JVD or lymphadenopathy. Supple, nontender, no meningeal signs. CARDIOVASCULAR: Regular rate and rhythm without murmurs, gallops, or rubs. RESPIRATORY: Clear to auscultation. Breath sounds equal bilaterally. No wheezes, rales, or rhonchi. GASTROINTESTINAL: Abdomen soft, non-tender, nondistended. No hepato- splenomegaly, or palpable masses. No guarding. EXTREMITIES: No clubbing, cyanosis, or edema. No joint tenderness, effusion, or edema noted. BACK: Nontender without deformity or crepitance. No flank tenderness. NEURO: AOx3. SKIN: No rash or erythema. : Russell catheter in place, urine draining around meatus. Initial Vital Signs Initial Vital Signs: Vital Signs Temperature 97.4 F L 01/22/19 14:51 Pulse Rate 104 H 01/22/19 14:51 Respiratory Rate 20 01/22/19 14:51 Blood Pressure 129/90 01/22/19 14:51 Pulse Oximetry 97 01/22/19 14:51 <Obed Reyes DO - Last Filed: 01/23/19 18:05> Initial Vital Signs Initial Vital Signs: Vital Signs Temperature 97.4 F L 01/22/19 14:51 Pulse Rate 104 H 01/22/19 14:51 Respiratory Rate 20 01/22/19 14:51 Blood Pressure 129/90 01/22/19 14:51 Pulse Oximetry 97 01/22/19 14:51 Course <MARKUS Hahn-BC - Last Filed: 01/22/19 20:31> Orders Ordered: Discontinued Medications Ibuprofen (Advil) 800 mg PO NOW ONE Stop: 01/22/19 15:37 Last Admin: 01/22/19 15:43 Dose: 800 mg Documented by: VISHNU Phenazopyridine HCl (Pyridium) 200 mg PO NOW ONE Stop: 01/22/19 15:37 Last Admin: 01/22/19 15:43 Dose: 200 mg Documented by: VISHNU Trimethoprim/Sulfamethoxazole (Bactrim Ds) 1 tab PO NOW ONE Stop: 01/22/19 18:12 Last Admin: 01/22/19 18:33 Dose: 1 tab Documented by: ARNALDO Vital Signs Vital signs: Vital Signs - 8 hr 01/22/19 14:51 01/22/19 18:36 Temperature 97.4 F L Pulse Rate 104 H 76 Respiratory Rate 20 18 Blood Pressure 129/90 Blood Pressure [Right Arm] 110/74 Pulse Oximetry 97 96 <Obed Reyes DO - Last Filed: 01/23/19 18:05> Orders Ordered: Discontinued Medications Ibuprofen (Advil) 800 mg PO NOW ONE Stop: 01/22/19 15:37 Last Admin: 01/22/19 15:43 Dose: 800 mg Documented by: VISHNU Phenazopyridine HCl (Pyridium) 200 mg PO NOW ONE Stop: 01/22/19 15:37 Last Admin: 01/22/19 15:43 Dose: 200 mg Documented by: VISHNU Trimethoprim/Sulfamethoxazole (Bactrim Ds) 1 tab PO NOW ONE Stop: 01/22/19 18:12 Last Admin: 01/22/19 18:33 Dose: 1 tab Documented by: ARNALDO Vital Signs Vital signs: Vital Signs - 8 hr 01/22/19 14:51 01/22/19 18:36 Temperature 97.4 F L Pulse Rate 104 H 76 Respiratory Rate 20 18 Blood Pressure 129/90 Blood Pressure [Right Arm] 110/74 Pulse Oximetry 97 96 MDM - Male Genitourinary <SANDY Hahn - Last Filed: 01/22/19 20:31> Lab Data Labs: Lab Results 01/22/19 Range/Units 17:04 Urine Color Yellow Urine Appearance Cloudy Urine pH 7.5 (4.5-8.0) Ur Specific [place] 1.015 (1.000-1.035) Urine Protein 2+ H (Negative) Urine Glucose (UA) Negative (Negative) g/dL Urine Ketones Negative (NEGATIVE) Urine Occult Blood 3+ H (Negative) Urine Nitrate Negative (Negative) Urine Bilirubin Negative (NEGATIVE) Urine Urobilinogen 0.2 (0.2) E.U./dL Ur Leukocyte Esterase 1+ H (NEGATIVE) Urine RBC >100/hpf (0-5/HPF) Urine WBC 10-30/hpf H (0-5/HPF) Amorphous Sediment 1+ Urine Bacteria Many (>30) H (None) Ur Culture Indicated? Specimen cultured MDM Narrative Medical decision making narrative: The patient is a 78-year-old male who presents with a chief complaint of a Russell catheter issue. Given that he had a TURP 2 days ago, I spoke with Dr. Patel from [facility] urology. He stated to remove the patient's Russell catheter, do a voiding trial and do a urine culture. After the patient's Russell catheter was removed, he drinks several cups of fluids, was able to produce a urine sample and was able to urinate further. His postvoid residual was just over 100 cc. His urinalysis was concerning for infection with bacteria leukocyte esterase and blood. Thus I did start him on Bactrim. He has no signs of systemic infection, is afebrile and feels well. He is tolerating plentiful p.o. fluids in the emergency department. Urine cultures pending at this time. I discussed at length keeping his appointment with Urology tomorrow, coming back to the emergency department for any acute concerns such as inability to void, fever etc. Patient and have no questions or concerns upon discharge and state understanding of return precautions as well as follow-up care. <Obed Reyes, - Last Filed: 01/23/19 18:05> Lab Data Labs: Lab Results 01/22/19 Range/Units 17:04 Urine Color Yellow Urine Appearance Cloudy Urine pH 7.5 (4.5-8.0) Ur Specific [place] 1.015 (1.000-1.035) Urine Protein 2+ H (Negative) Urine Glucose (UA) Negative (Negative) g/dL Urine Ketones Negative (NEGATIVE) Urine Occult Blood 3+ H (Negative) Urine Nitrate Negative (Negative) Urine Bilirubin Negative (NEGATIVE) Urine Urobilinogen 0.2 (0.2) E.U./dL Ur Leukocyte Esterase 1+ H (NEGATIVE) Urine RBC >100/hpf (0-5/HPF) Urine WBC 10-30/hpf H (0-5/HPF) Amorphous Sediment 1+ Urine Bacteria Many (>30) H (None) Ur Culture Indicated? Specimen cultured Discharge Plan Departure Patient Disposition: Home Clinical Impression: Urinary tract infection Qualifiers: Urinary tract infection type: site unspecified Hematuria presence: with hematuria Qualified Code(s): N39.0 - Urinary tract infection, site not specified Complication of Russell catheter Qualifiers: Encounter type: initial encounter Qualified Code(s): T83.9XXA - Unspecified complication of genitourinary prosthetic device, implant and graft, initial encounter Discharge Date/Time: 01/22/19 18:42 Activity Restrictions/Additional Instructions: Today we removed your Russell catheter. Please come back to the emergency department for any acute concerns such as inability to urinate. Please follow up with your surgeon Tomorrow as scheduled. Given that your urine was concerning for infection, I have placed you on an antibiotic. I suggest taking this with a probiotic or yogurt. Please come back to the emergency department for any acute concerns and follow up as we discussed. Prescriptions: New sulfamethoxazole-trimethoprim [Bactrim DS] 800-160 mg tablet 1 tab PO BID Qty: 14 RF: 0 No Action cefpodoxime 200 mg tablet PO Qty: 28 RF: 0 tramadol 50 mg tablet 50 mg PO TID PRN (Reason: pain) Qty: 60 RF: 1 tamsulosin 1 each PO .qday RF: 0 metformin 500 mg tablet 500 mg PO DAILY RF: 0 aspirin 81 mg tablet,delayed release (DR/EC) 81 mg PO DAILY RF: 0 alprazolam [Xanax] 0.5 mg tablet 0.5 mg PO ONCE PRNRF: 0 pravastatin 10 mg tablet 10 mg PO DAILY RF: 0 triamterene 50 mg capsule 50 mg PO DAILY RF: 0 montelukast 10 mg tablet 10 mg PO QPM RF: 0 albuterol sulfate [Ventolin HFA] 90 mcg/actuation HFA aerosol inhaler 1 puff INHALATION Q6H PRNRF: 0 tiotropium bromide [Spiriva Respimat] 2.5 mcg/actuation mist 2 puff INHALATION DAILY RF: 0 fluticasone furoate [Arnuity Ellipta] 100 mcg/actuation blister with device 1 inhalation INHALATION DAILY RF: 0 diclofenac sodium-menthol 1.5-10 % combo pack TOP PRNRF: 0 potassium 10 mEq PO PRNRF: 0 Referrals: Reva Lorenzana MD [Primary Care Provider] -
== END 2019-01-22 18:42 | disposition home or self-care (01) ==
PROVIDERS: Emergency Provider Nurse Practitioner Family; PCP Internal Medicine
DX: T83.84XA Pain due to genitourinary prosthetic devices, implants and grafts, initial encounter (principal); N39.0 Urinary tract infection, site not specified; R31.9 Hematuria, unspecified
CPT/HCPCS: 51798; 81001; 87086; 99283

== ENCOUNTER → 2019-03-20 14:22 | Outpatient (CLI) | payer MEDICARE, BC, SELFPAY ==
--- NOTE | 2019-03-20 | DI.CT.S_ITS ---
PROCEDURE: CT FACIAL BONES WO CON INDICATIONS: Traumatic injury of head, fall onto face, R/O NASAL/ORBITAL FRACTURES TECHNIQUE: Noncontrast 2.5 mm thick axial images acquired from the mandible through the frontal sinuses, with coronal and sagittal reformatting. For radiation dose reduction, the following was used: automated exposure control, adjustment of mA and/or kV according to patient size. COMPARISON: [facility], CT, CT HEAD/BRAIN WO CON, 03/20/2019, 14:56. FINDINGS: Image quality: Excellent. Bones and teeth: Orbital stewart are intact. Sinus stewart show no fracture or deformity. Minimal irregularity at the left paramedian distal nasal bone, (). Nasal septum is intact. The nasal septum is mildly deviated to the left, likely chronic. Visualized portions of the mandible demonstrate no fractures or subluxation. Evaluation of the teeth is limited I. beam hardening artifact. Zygomatic arches are intact. Pterygoid plates are intact. Visualized portions of the skull base and auditory canals are intact. The cervical spine ACDF at C2-C3. No periprosthetic lucency or fracture. Heterotopic ossification at the dens. Moderate to severe cervical spine degenerative change. Sinuses: Mild mucosal thickening in the bilateral maxillary sinuses and ethmoid air cells. Mild mucosal thickening in the left frontal sinus. The mastoid air cells are clear. Soft tissues: Mild soft tissue swelling about the forehead and nose. Mild subcutaneous edema of the cheeks. No edema, masses, or fluid collections. No enlarged lymph nodes. No soft tissue lacerations or debris. Vascular: Visualized vascular structures appear normal in the absence of contrast. Bony vascular foramina and canals are intact. IMPRESSION: 1. Minimal irregularity of the distal nasal bone likely represents a small fracture given the clinical history. 2. Mild mucosal sinus thickening. Comment: Findings were discussed with Reva Lorenzana M.D. at the time of dictation. Dictated by: Andrey Espinal M.D. on 03/20/2019 at 15:21 Approved by: Andrey Espinal M.D. on 03/20/2019 at 15:29
--- NOTE | 2019-03-20 14:35 | DI.CT.S_ITS ---
PROCEDURE: CT HEAD/BRAIN WO CON INDICATIONS: Traumatic injury of head over 1 week ago, R/O SDH TECHNIQUE: Noncontrast 4.5 mm thick angled axial sections acquired from the foramen magnum to the vertex, with coronal and sagittal reformats. For radiation dose reduction, the following was used: automated exposure control, adjustment of mA and/or kV according to patient size. COMPARISON: [facility], CT, CT FACIAL BONES WO CON, 03/20/2019, 14:56. FINDINGS: Image quality: Excellent. CSF spaces: Basal cisterns are patent. No extra-axial fluid collections. Ventricles are normal in size and shape. Brain: No midline shift. No intracranial masses or hemorrhage. No area of hypodensity in a large vascular distribution to suggest acute infarction. Periventricular hypodensity consistent with chronic microvascular ischemic change. Skull and face: Calvarium and visualized facial bones are intact, without suspicious lesions. Cervical spine ACDF on the functional consultant image. Sinuses: Mild mucosal thickening in the ethmoid air cells seen. Visualized sinuses and mastoids are otherwise clear. IMPRESSION: No acute intracranial abnormality demonstrated. Dictated by: Andrey Espinal M.D. on 03/20/2019 at 15:15 Approved by: Andrey Espinal M.D. on 03/20/2019 at 15:21
[2019-03-20 15:02] LABS: Hematocrit 44.9 % (41-53); Hemoglobin 15.5 g/dL (13.5-17.5); Mean Corpuscular HGB Conc 34.6 % (30-36); Mean Corpuscular Hemoglobin 31.6 PG (26-34); Mean Corpuscular Volume 91.2 fL (80-100); Platelet Count 240 X10^3/uL (150-400); Red Blood Cell Count 4.92 X10^6/uL (4.5-5.9); Red Cell Distribution Width 13.5 % (11.6-14.8); White Blood Cell Count 10.6 X10^3/uL (4.5-11.0)
[2019-03-20 15:13] LABS: Alanine Aminotransferase 21 IU/L (<50); Albumin 4.7 g/dL (3.5-5.0); Albumin Globulin Ratio 1.4 (1.0-2.8); Alkaline Phosphatase 101 U/L (38-126); Aspartate Aminotransferase 32 IU/L (17-59); BUN Creatinine Ratio 22.9 (6-22); Bilirubin Total 0.7 mg/dL (0.2-1.3); Blood Urea Nitrogen 16 mg/dL (9-20); Calcium 9.7 mg/dL (8.4-10.2); Carbon Dioxide 30 mmol/L (22-32); Chloride 93 mmol/L (98-107); Estimated Glomerular Filt Rate > 60.0 mL/min (>60); Globulin 3.4 g/dL (1.7-4.1); Glucose 117 mg/dL (80-110); HEMOLYSIS < 15 (0-50); Potassium 3.3 mmol/L (3.4-5.1); Sodium 135 mmol/L (137-145); Total Protein 8.1 g/dL (6.3-8.2)
[2019-03-20 15:22] LABS: Erythrocyte Sedimentation Rate 29 MM/HR (0-15); Total Cells Counted 100
[2019-03-20 15:45] LABS: Neutrophils Absolute Manual 7526 /uL (3000-5900)
[2019-03-20 15:46] LABS: RBC Morphology Normal Morphology
== END ==
PROVIDERS: PCP Internal Medicine; Visit Provider Internal Medicine
DX: S00.83XA Contusion of other part of head, initial encounter (principal); S09.90XA Unspecified injury of head, initial encounter; M79.89 Other specified soft tissue disorders; R35.0 Frequency of micturition; N39.0 Urinary tract infection, site not specified; W19.XXXA Unspecified fall, initial encounter
CPT/HCPCS: 36415; 70450; 70486; 80053; 85025; 85651

== ENCOUNTER → 2019-09-04 13:55 | Outpatient (CLI) | payer MEDICARE, BC, SELFPAY ==
--- NOTE | 2019-09-04 13:57 | DI.RAD.S_ITS ---
PROCEDURE: XR KNEE LT 3V INDICATIONS: left patellar pain TECHNIQUE: 3 views of the knee were acquired. COMPARISON: None. FINDINGS: Bones: Patient is status post left total knee arthroplasty. Alignment of left knee is anatomic. No fractures or dislocations. No gross hardware loosening or failure. No patella subluxation. No suspicious bony lesions. Soft tissues: No joint effusion. No suspicious soft tissue calcifications. IMPRESSION: Anatomic left knee alignment. No fracture or dislocation. No evidence of hardware complication. No significant joint effusion. Dictated by: Dawson Escoto M.D. on 09/04/2019 at 16:15 Approved by: Dawson Escoto M.D. on 09/04/2019 at 16:15
== END ==
PROVIDERS: PCP Internal Medicine; Referring Provider Physical Medicine & Rehabilitation; Visit Provider Physical Medicine & Rehabilitation
DX: M25.562 Pain in left knee (principal); C61 Malignant neoplasm of prostate; M47.27 Other spondylosis with radiculopathy, lumbosacral region; Z95.5 Presence of coronary angioplasty implant and graft; Z96.652 Presence of left artificial knee joint; Z98.890 Other specified postprocedural states
CPT/HCPCS: 73562; 99215

== ENCOUNTER → 2019-10-02 10:44 | Outpatient (CLI) | payer MEDICARE, BC, SELFPAY ==
[2019-10-02 12:05] LABS: Add Manual Diff / Slide Review NO; Basophils Absolute Auto 100 /uL (0-100); Basophils Percent Auto 0.9 % (0-2); Eosinophils Absolute Auto 300 /uL (0-450); Eosinophils Percent Auto 5.4 % (2-4); Hematocrit 41.4 % (41-53); Hemoglobin 14.6 g/dL (13.5-17.5); Lymphocytes Absolute Auto 1900 /uL (1100-4500); Lymphocytes Percent Auto 35.1 % (25-40); Mean Corpuscular HGB Conc 35.2 % (30-36); Mean Corpuscular Hemoglobin 32.6 PG (26-34); Mean Corpuscular Volume 92.8 fL (80-100); Monocytes Absolute Auto 600 /uL (0-900); Monocytes Percent Auto 10.3 % (3-14); Neutrophils Absolute Auto 2600 /uL (1500-7000); Neutrophils Percent Auto 48.3 % (50-75); Platelet Count 231 X10^3/uL (150-400); Red Blood Cell Count 4.46 X10^6/uL (4.5-5.9); Red Cell Distribution Width 13.8 % (11.6-14.8); White Blood Cell Count 5.5 X10^3/uL (4.5-11.0)
[2019-10-02 12:26] LABS: C-Reactive Protein Quant < 0.5 mg/dL (<1.0); Erythrocyte Sedimentation Rate 5 MM/HR (0-15)
== END ==
PROVIDERS: PCP Internal Medicine; Referring Provider Orthopaedic Surgery; Visit Provider Orthopaedic Surgery
DX: M25.562 Pain in left knee (principal)
CPT/HCPCS: 36415; 85025; 85651; 86140

== ENCOUNTER → 2019-10-05 09:56 | Outpatient (CLI) | payer MEDICARE, BC, SELFPAY ==
--- NOTE | 2019-10-05 | DI.NM.S_ITS ---
PROCEDURE: NM BONE 3 PHASE RADIOPHARMACEUTICAL: 19.7 mCi Tc-99m MDP IV. INDICATIONS: Pain in left knee TECHNIQUE: Multiple bone scintigrams were obtained after intravenous injection of Tc-99m MDP, including flow, blood pool, and delayed images centered to the region of interest. COMPARISON: [facility], CR, XR KNEE LT 3V, 09/04/2019, 13:52. FINDINGS: Footing defect involving left knee arthroplasty. There is no definite associated tracer uptake in the region of the patella on the immediate and blood pool images. There is diffuse periprosthetic tracer activity on the delayed phase images only. IMPRESSION: No specific sonographic evidence of hardware loosening or infection. Dictated by: Dilip Malhotra M.D. on 10/05/2019 at 15:18 Approved by: Dilip Malhotra M.D. on 10/05/2019 at 15:21
== END ==
PROVIDERS: PCP Internal Medicine; Referring Provider Orthopaedic Surgery; Visit Provider Orthopaedic Surgery
DX: M25.562 Pain in left knee (principal); Z96.652 Presence of left artificial knee joint
CPT/HCPCS: 78315; A9503

== ENCOUNTER → 2020-03-29 13:17 | Outpatient (CLI) | payer MEDICARE, BC, SELFPAY ==
[2020-03-29 13:43] LABS: Hematocrit 42.3 % (41-53); Hemoglobin 14.5 g/dL (13.5-17.5); Mean Corpuscular HGB Conc 34.4 % (30-36); Mean Corpuscular Volume 93.2 fL (80-100); Platelet Count 263 X10^3/uL (150-400); Red Blood Cell Count 4.54 X10^6/uL (4.5-5.9); Red Cell Distribution Width 13.4 % (11.6-14.8); White Blood Cell Count 5.3 X10^3/uL (4.5-11.0)
[2020-03-29 13:53] LABS: Alanine Aminotransferase 25 IU/L (<50); Albumin 4.3 g/dL (3.5-5.0); Albumin Globulin Ratio 1.4 (1.0-2.8); Alkaline Phosphatase 109 U/L (38-126); Aspartate Aminotransferase 33 IU/L (17-59); BUN Creatinine Ratio 23.8 (6-22); Bilirubin Total 0.4 mg/dL (0.2-1.3); Blood Urea Nitrogen 15 mg/dL (9-20); Calcium 9.4 mg/dL (8.4-10.2); Carbon Dioxide 37 mmol/L (22-32); Chloride 98 mmol/L (98-107); Cholesterol 199 mg/dL (140-199); Estimated Glomerular Filt Rate > 60.0 mL/min (>60); Globulin 3.1 g/dL (1.7-4.1); Glucose 92 mg/dL (80-110); HDL Cholesterol 81 mg/dL (40-60); HEMOLYSIS < 15 (0-50); LDL Cholesterol Calculated 100 mg/dL (<100); Sodium 137 mmol/L (137-145); Total Protein 7.4 g/dL (6.3-8.2); Triglycerides 92 mg/dL (35-150)
[2020-03-29 13:54] LABS: Hemoglobin A1C% w Est Avg Glu 5.4 % (4.0-6.0)
[2020-03-29 13:56] LABS: Neutrophils Absolute Manual 2385 /uL (3000-5900); Total Cells Counted 100
[2020-03-29 13:58] LABS: RBC Morphology Normal Morphology
[2020-03-29 14:57] LABS: Creatinine Urine Random 28.9 mg/dL
[2020-03-29 15:05] LABS: TSH w/ Reflex to FT4 0.75 uIU/mL (0.47-4.68)
[2020-03-29 15:08] LABS: Microalbumin Urine Random < 0.6 mg/dL (0-1.6)
[2020-03-30 06:23] LABS: PSA Free % 23.1 % (.); PSA, Total 2.6 ng/mL (0.0-4.0)
== END ==
PROVIDERS: PCP Internal Medicine; Referring Provider Internal Medicine; Visit Provider Internal Medicine
DX: Z95.5 Presence of coronary angioplasty implant and graft (principal); E78.5 Hyperlipidemia, unspecified; E11.9 Type 2 diabetes mellitus without complications; N40.1 Benign prostatic hyperplasia with lower urinary tract symptoms; F41.9 Anxiety disorder, unspecified; D72.89 Other specified disorders of white blood cells
CPT/HCPCS: 36415; 80053; 80061; 82043; 82570; 83036; 84153; 84154; 84443; 85025

== ENCOUNTER 2020-03-29 13:33 | Emergency (ER) | payer MEDICARE, BC, SELFPAY ==
[2020-03-29 13:40] VITALS: BP 152/88; PULSE 82; RESP 16; O2SAT 99; BMI 23.6
[2020-03-29 13:41] VITALS: BP 144/77; PULSE 80; RESP 25; O2SAT 96
--- NOTE | 2020-03-29 13:45 | DI.RAD.S_ITS ---
PROCEDURE: XR CHEST 1V INDICATIONS: chest pain TECHNIQUE: One view of the chest was acquired. COMPARISON: None. FINDINGS: Surgical changes and devices: None. Lungs and pleura: Lungs are clear. No pleural effusions or pneumothorax. Mediastinum: Mediastinal contours appear normal. Heart size is normal. Bones and chest wall: No suspicious bony lesions. Overlying soft tissues appear unremarkable. IMPRESSION: Normal for age, source of current chest pain symptoms is not seen. Dictated by: Leandro Martinez M.D. on 03/29/2020 at 14:10 Approved by: Leandro Martinez M.D. on 03/29/2020 at 14:10
[2020-03-29 13:53] LABS: Add Manual Diff / Slide Review NO; Basophils Absolute Auto 100 /uL (0-100); Eosinophils Absolute Auto 200 /uL (0-450); Eosinophils Percent Auto 4.1 % (2-4); Hematocrit 42.8 % (41-53); Hemoglobin 14.4 g/dL (13.5-17.5); Lymphocytes Absolute Auto 2100 /uL (1100-4500); Lymphocytes Percent Auto 36.1 % (25-40); Mean Corpuscular HGB Conc 33.7 % (30-36); Mean Corpuscular Hemoglobin 31.4 PG (26-34); Mean Corpuscular Volume 93.2 fL (80-100); Monocytes Absolute Auto 800 /uL (0-900); Monocytes Percent Auto 13.1 % (3-14); Neutrophils Absolute Auto 2600 /uL (1500-7000); Neutrophils Percent Auto 45.7 % (50-75); Platelet Count 251 X10^3/uL (150-400); Red Blood Cell Count 4.59 X10^6/uL (4.5-5.9); Red Cell Distribution Width 13.4 % (11.6-14.8); White Blood Cell Count 5.8 X10^3/uL (4.5-11.0)
--- NOTE | 2020-03-29 13:57 | ED_ITS ---
HPI - General Adult General Chief complaint: Dizziness Stated complaint: dizziness, falls Time Seen by Provider: 03/29/20 13:43 Source: patient Mode of arrival: Ambulatory Limitations: no limitations History of Present Illness HPI narrative: 79-year-old male, [id number] diabetic here for evaluation of vertigo symptoms. He states that for the past 2 weeks he has am episodes of vertigo. He states that it occurs when he bends forward or when he goes from sitting to lying down. He states that when he is sitting upright or when he is lying flat he is not having any symptoms. He has fallen over couple times because of the symptoms. Has not been evaluated for this up to this point. Related Data Home Medications Medication Instructions Recorded Confirmed albuterol sulfate 90 mcg/actuation 1 puff INHALATION Q6H PRN 03/10/18 09/04/19 aerosol inhaler alprazolam 0.5 mg tablet 0.5 mg PO ONCE PRN tab 03/10/18 09/04/19 aspirin 81 mg tablet,delayed 81 mg PO DAILY 03/10/18 09/04/19 release diclofenac sodium 1.5 % topical package TOP PRN ml 03/10/18 09/04/19 drops-menthol 10 % roll-on combo pack fluticasone furoate 100 1 inhalation INHALATION DAILY 03/10/18 09/04/19 mcg/actuation blister powder for inhalation metformin 500 mg tablet 500 mg PO DAILY tab 03/10/18 09/04/19 montelukast 10 mg tablet 10 mg PO QPM 03/10/18 09/04/19 potassium PO PRN 03/10/18 09/04/19 pravastatin 10 mg tablet 10 mg PO DAILY 03/10/18 09/04/19 tiotropium bromide 2.5 2 puff INHALATION DAILY 03/10/18 09/04/19 mcg/actuation mist for inhalation tamsulosin 1 each PO .qday 06/16/18 09/04/19 B-complex with vitamin C 1 tab PO DAILY 09/04/19 09/04/19 hydromorphone 2 mg tablet 2 mg PO Q4-6H PRN 09/04/19 09/04/19 oxybutynin chloride 5 mg tablet 5 mg PO BID 09/04/19 09/04/19 triamterene 75 tab PO 09/04/19 09/04/19 mg-hydrochlorothiazide 50 mg tablet Previous Rx's Medication Instructions Recorded meclizine 25 mg PO TID PRN #12 tab 03/29/20 Allergies Allergy/AdvReac Type Severity Reaction Status Date / Time oxycodone AdvReac Intermediate lethargic Verified 09/04/19 13:12 and tired Review of Systems Constitutional Constitutional: Denies fatigue and Denies headache(s) Eyes Eyes: Denies blurry vision and Denies change in vision ENT Ears, Nose, Mouth, and Throat: Denies abnormal hearing, Reports vertigo, Reports dizziness, Denies otalgia, Denies headache(s), Denies hearing loss, Reports disequilibrium, Denies tinnitus, Denies sinus pressure and Denies sore throat Cardiovascular Cardiovascular: Denies chest pain, Denies lightheadedness and Denies dyspnea Respiratory Respiratory: Denies cough and Denies dyspnea Gastrointestinal Gastrointestinal: Denies abdominal pain, Denies nausea and Denies vomiting Genitourinary Genitourinary: Denies dysuria Genitourinary: Denies dysuria Musculoskeletal Musculoskeletal: Denies arthralgias, Denies myalgias and Denies tingling Integumentary/Breasts Skin/Breast: Denies rash Neurologic Neurologic: Denies abnormal hearing, Denies abnormal speech, Denies confusion, Reports vertigo, Reports dizziness, Denies headache(s), Denies tingling and Reports disequilibrium Psychiatric Psychiatric: Denies confusion Endocrine Endocrine: Denies fatigue Hematologic/Lymphatic Hematologic/Lymphatic: Denies easy bleeding and Denies easy bruising On Anticoagulants: No Allergic/Immunologic Allergic/Immunologic: Denies urticaria Patient History Medical History Facet arthropathy, lumbar Pain of left patella Surgical History S/P total knee arthroplasty Social History Smoking Status: Former smoker Smoking Status: Former smoker alcohol intake frequency: 3 or more drinks per day Substance Use Type: does not use Exam Initial Vital Signs Initial Vital Signs: Vital Signs Pulse Rate 82 03/29/20 13:40 Respiratory Rate 16 03/29/20 13:40 Blood Pressure 152/88 H 03/29/20 13:40 Pulse Oximetry 99 03/29/20 13:40 Const General: cooperative, comfortable and well developed Limitations: mental status not altered HENMT Head: normal to inspection and normocephalic Eyes General: appearance normal, both eyes and all related structures Resp Effort & Inspection: normal respiratory effort Auscultation: clear to auscultation bilaterally Cardio Rate: regular rate Rhythm: regular rhythm GI Inspection: non-distended Palpation: soft Skin Lesions: no lesions Rashes: no rashes Neuro General: patient alert, patient awake and patient oriented x3 Cranial Nerves: CN's II-XI intact bilaterally Cognition: normal cognition Speech: speech normal Sensory Exam: no sensory deficits noted Other: Patient with a positive [place] maneuver to the left Extrem General: normal to inspection and capillary refill normal Psych Appearance: grossly normal and well kempt Scores GCS [place] coma scale eye opening: Spontaneous [place] coma scale verbal response: Orientated [place] coma scale motor response: Obey commands S[place] coma scale total score: 15 Course Orders Ordered: ED Orders 03/29/20 13:41 Complete Blood Count AUTO DIFF Stat Comprehensive Metabolic Panel Stat Lipase Stat Partial Thromboplastin Time Stat Prothrombin Time INR Stat Troponin & CK Cardiac Panel Stat 03/29/20 13:43 EKG-12 Lead Stat 03/29/20 13:45 XR chest 1V Stat 03/29/20 14:40 EKG-12 Lead Routine Discontinued Medications Meclizine HCl (Meclizine Hcl 12.5 Mg Tablet) 25 mg PO NOW ONE Stop: 03/29/20 14:08 Last Admin: 03/29/20 14:17 Dose: 25 mg Documented by: RALEIGH Vital Signs Vital signs: Vital Signs - 8 hr 03/29/20 13:40 03/29/20 13:41 03/29/20 14:00 Pulse Rate 82 80 78 Respiratory Rate 16 25 H 17 Blood Pressure 152/88 H 144/77 H 136/63 Pulse Oximetry 99 96 98 03/29/20 14:30 Pulse Rate 73 Respiratory Rate 14 Blood Pressure 128/71 Pulse Oximetry 96 Medical Decision Making Lab Data Lab results reviewed: Yes I reviewed the patient's lab results. Result diagrams: 03/29/20 13:41 03/29/20 13:41 Labs: Lab Results 03/29/20 03/29/20 03/29/20 Range/Units 13:41 13:41 13:41 WBC 5.8 (4.5-11.0) X10^3/uL RBC 4.59 (4.5-5.9) X10^6/uL Hgb 14.4 (13.5-17.5) g/dL Hct 42.8 (41-53) % MCV 93.2 (80-100) fL MCH 31.4 (26-34) PG MCHC 33.7 (30-36) % RDW 13.4 (11.6-14.8) % Plt Count 251 (150-400) X10^3/uL Neut % (Auto) 45.7 L (50-75) % Lymph % (Auto) 36.1 (25-40) % [place]th % (Auto) 13.1 (3-14) % Eos % (Auto) 4.1 H (2-4) % Baso % (Auto) 1.0 (0-2) % Neut # (Auto) 2600 (6593-6165) /uL Lymph # (Auto) 2100 (3920-4303) /uL [place] # (Auto) 800 (0-900) /uL Eos # (Auto) 200 (0-450) /uL Baso # (Auto) 100 (0-100) /uL PT 11.5 (10.1-12.7) SECONDS INR 1.0 (0.9-1.3) APTT 30 (26.4-36.2) SECONDS Sodium 136 L (137-145) mmol/L Potassium 3.9 (3.4-5.1) mmol/L Chloride 100 (98-107) mmol/L Carbon Dioxide 33 H (22-32) mmol/L BUN 15 (9-20) mg/dL Creatinine 0.62 L (0.66-1.25) mg/dL Estimated GFR > 60.0 (>60) mL/min BUN/Creatinine Ratio 24.2 H (6-22) Glucose 101 (80-110) mg/dL Calcium 9.3 (8.4-10.2) mg/dL Total Bilirubin 0.5 (0.2-1.3) mg/dL AST 33 (17-59) IU/L ALT 26 (<50) IU/L Alkaline Phosphatase 112 (38-126) U/L Total Creatine Kinase 69 (55-170) U/L CK-MB (CK-2) TNP CK-MB (CK-2) Rel Index TNP Troponin I < 0.012 (0.01-0.034) ng/mL Total Protein 7.5 (6.3-8.2) g/dL Albumin 4.3 (3.5-5.0) g/dL Globulin 3.2 (1.7-4.1) g/dL Albumin/Globulin Ratio 1.3 (1.0-2.8) Lipase 78 (23-300) U/L Imaging Data Chest x-ray: Radiologist's Impression: [address] [id number] ReportSigned Patient: Enrique RobertsMR#: [id number]: 2Acct:[id number]/Sex: 79 / MDate of Service: 03/29/20Loc: EDAccession Number: [id number] Procedure: XR chest 1V Ordering Provider: Stefan Spivey D.O. PROCEDURE: XR CHEST 1V INDICATIONS: chest pain TECHNIQUE: One view of the chest was acquired. COMPARISON: None. FINDINGS: Surgical changes and devices: None. Lungs and pleura: Lungs are clear. No pleural effusions or pneumothorax. Mediastinum: Mediastinal contours appear normal. Heart size is normal. Bones and chest wall: No suspicious bony lesions. Overlying soft tissues appear unremarkable. IMPRESSION: Normal for age, source of current chest pain symptoms is not seen. Dictated by: Leandro Martinez M.D. on 03/29/2020 at 14:10 Approved by: Leandro Martinez M.D. on 03/29/2020 at 14:10 ECG Data Attestation: I personally reviewed and interpreted this ECG as follows: Prior ECG tracings: not available for review Interpretation: Sinus rhythm Ventricular rate is 75 Left axis deviation Normal QRS Normal QTC No ST T wave changes MDM Narrative Medical decision making narrative: Patient with a obvious positional vertigo with a positive [place] maneuver to the left. Patient has no other neurologic symptoms. He was given meclizine with almost complete resolution of his symptoms. I do have low suspicion for cardiac origin. Low suspicion for CVA or TIA. I feel we can hold on further workup for now. Will send a prescription for meclizine to the pharmacy of his choice he was instructed that if his symptoms do not improve that he should talk to his primary doctor about a referral to see your nose and throat. He was given strict return precautions. He expressed understanding and agreement. Discharge Plan Departure Patient Disposition: Home Clinical Impression: Vertigo Instructions: DI for Vertigo Activity Restrictions/Additional Instructions: A prescription for meclizine was electronically transmitted to the pharmacy of your choice. Take it as directed and as needed. I do recommend that you contact your primary doctor's office for follow-up. If your symptoms worsen please return to the emergency department. Continue the rest of your medication as directed. Prescriptions: New meclizine 25 mg tablet 25 mg PO TID PRN (Reason: dizziness) Qty: 12 RF: 0 No Action tamsulosin 1 each PO .qday RF: 0 metformin 500 mg tablet 500 mg PO DAILY RF: 0 aspirin 81 mg tablet,delayed release (DR/EC) 81 mg PO DAILY RF: 0 alprazolam [Xanax] 0.5 mg tablet 0.5 mg PO ONCE PRNRF: 0 pravastatin 10 mg tablet 10 mg PO DAILY RF: 0 montelukast 10 mg tablet 10 mg PO QPM RF: 0 albuterol sulfate [Ventolin HFA] 90 mcg/actuation HFA aerosol inhaler 1 puff INHALATION Q6H PRNRF: 0 tiotropium bromide [Spiriva Respimat] 2.5 mcg/actuation mist 2 puff INHALATION DAILY RF: 0 fluticasone furoate [Arnuity Ellipta] 100 mcg/actuation blister with device 1 inhalation INHALATION DAILY RF: 0 diclofenac sodium-menthol 1.5-10 % combo pack TOP PRNRF: 0 potassium 10 mEq PO PRNRF: 0 triamterene-hydrochlorothiazid 75-50 mg TABLET PO RF: 0 oxybutynin chloride 5 mg tablet 5 mg PO BID RF: 0 B-complex with vitamin C [Super B Complex-Vitamin C] Tablet 1 tab PO DAILY RF: 0 hydromorphone [Dilaudid] 2 mg tablet 2 mg PO Q4-6H PRNRF: 0 Referrals: Reva Lorenzana MD [Primary Care Provider] -
[2020-03-29 14:00] VITALS: BP 136/63; PULSE 78; RESP 17; O2SAT 98
[2020-03-29 14:01] LABS: Prothrombin Time 11.5 SECONDS (10.1-12.7)
[2020-03-29 14:03] LABS: PTT Partial Thromboplastin Tim 30 SECONDS (26.4-36.2)
[2020-03-29 14:05] LABS: Alanine Aminotransferase 26 IU/L (<50); Albumin 4.3 g/dL (3.5-5.0); Albumin Globulin Ratio 1.3 (1.0-2.8); Alkaline Phosphatase 112 U/L (38-126); Aspartate Aminotransferase 33 IU/L (17-59); BUN Creatinine Ratio 24.2 (6-22); Bilirubin Total 0.5 mg/dL (0.2-1.3); Blood Urea Nitrogen 15 mg/dL (9-20); Calcium 9.3 mg/dL (8.4-10.2); Carbon Dioxide 33 mmol/L (22-32); Chloride 100 mmol/L (98-107); Creatine Kinase 69 U/L (55-170); Estimated Glomerular Filt Rate > 60.0 mL/min (>60); Globulin 3.2 g/dL (1.7-4.1); Glucose 101 mg/dL (80-110); HEMOLYSIS < 15 (0-50); Lipase 78 U/L (23-300); Potassium 3.9 mmol/L (3.4-5.1); Sodium 136 mmol/L (137-145); Total Protein 7.5 g/dL (6.3-8.2)
[2020-03-29 14:16] LABS: Troponin I < 0.012 ng/mL (0.01-0.034)
[2020-03-29] MEDS: MECLIZINE HCL 12.5 MG TABLET 25 MG PO (14:17)
[2020-03-29 14:30] VITALS: BP 128/71; PULSE 73; RESP 14; O2SAT 96
[2020-03-29 15:00] VITALS: BP 139/74; PULSE 75; RESP 17; O2SAT 96
== END 2020-03-29 15:30 | disposition home or self-care (01) ==
PROVIDERS: Emergency Provider Emergency Medicine; PCP Internal Medicine
DX: R42 Dizziness and giddiness (principal); E11.9 Type 2 diabetes mellitus without complications; Z79.82 Long term (current) use of aspirin; R07.9 Chest pain, unspecified; Z95.5 Presence of coronary angioplasty implant and graft; E78.5 Hyperlipidemia, unspecified; N40.1 Benign prostatic hyperplasia with lower urinary tract symptoms; F41.9 Anxiety disorder, unspecified; D72.89 Other specified disorders of white blood cells
CPT/HCPCS: 36415; 71045; 80053; 80061; 82043; 82550; 82570; 83036; 83690; 84153; 84154; 84443; 84484; 85025; 85610; 85730; 93005; 99283; 99284

== ENCOUNTER 2020-05-01 15:46 | Emergency (ER) | payer MEDICARE, BC, SELFPAY ==
[2020-05-01 15:50] VITALS: BP 133/71; PULSE 87; RESP 18; TEMP 37.1; O2SAT 98; BMI 27.3
[2020-05-01 16:01] LABS: Bacteria Urine None Seen
[2020-05-01 16:03] LABS: Bilirubin Urine UA NEGATIVE (NEGATIVE); Glucose Urine UA NEGATIVE (Negative); Ketones Urine UA NEGATIVE (NEGATIVE); Leukocyte Esterase Urine UA 2+ (NEGATIVE); Nitrite Urine UA NEGATIVE (Negative); Occult Blood Urine UA 3+ (Negative); Protein Urine UA 1+ (Negative); Urobilinogen Urine UA 0.2 E.U./dL (0.2); pH Urine UA 6.5 (4.5-8.0)
[2020-05-01 16:10] LABS: Appearance Urine UA Cloudy; Color Urine UA Red
[2020-05-01 16:11] LABS: Culture Indicated Urine Specimen Cultured; RBC Urine >100/HPF (0-5/HPF); WBC Urine 10-30/HPF (0-5/HPF)
[2020-05-01 16:56] VITALS: BP 115/66; PULSE 77; O2SAT 94
--- NOTE | 2020-05-01 17:57 | ED.MALEGU ---
HPI - Male Genitourinary General Chief complaint: Urogenital-Male Stated complaint: blood in urine, frequent urination, since this mor Time Seen by Provider: 05/01/20 17:53 Source: patient Mode of arrival: Ambulatory Limitations: no limitations History of Present Illness HPI Narrative: 71-year-old male former smoker with history of prostate cancer, coronary artery disease presents with his in the chief complaint of painless hematuria over the course of the day. He states that his urine has very tiny clots and is pink-tinged, he denies gross hematuria. He denies any pain whatsoever. He does have some dysuria and frequency but denies any fever, chills nor nausea or vomiting. He has no chest pain or shortness of breath. He is not dizzy nor weak or lightheaded. He denies any suprapubic pain. Takes no blood thinners. Related Data Home Medications Medication Instructions Recorded Confirmed albuterol sulfate 90 mcg/actuation 1 puff INHALATION Q6H PRN 03/10/18 04/26/20 aerosol inhaler alprazolam 0.5 mg tablet 0.5 mg PO ONCE PRN tab 03/10/18 04/26/20 aspirin 81 mg tablet,delayed 81 mg PO DAILY 03/10/18 04/26/20 release diclofenac sodium 1.5 % topical package TOP PRN ml 03/10/18 04/26/20 drops-menthol 10 % roll-on combo pack fluticasone furoate 100 1 inhalation INHALATION DAILY 03/10/18 04/26/20 mcg/actuation blister powder for inhalation metformin 500 mg tablet 500 mg PO DAILY tab 03/10/18 04/26/20 montelukast 10 mg tablet 10 mg PO QPM 03/10/18 04/26/20 potassium PO PRN 03/10/18 04/26/20 pravastatin 10 mg tablet 10 mg PO DAILY 03/10/18 04/26/20 tiotropium bromide 2.5 2 puff INHALATION DAILY 03/10/18 04/26/20 mcg/actuation mist for inhalation tamsulosin 1 each PO .qday 06/16/18 04/26/20 B-complex with vitamin C 1 tab PO DAILY 09/04/19 04/26/20 hydromorphone 2 mg tablet 2 mg PO Q4-6H PRN 09/04/19 04/26/20 oxybutynin chloride 5 mg tablet 5 mg PO BID 09/04/19 04/26/20 triamterene 75 tab PO 09/04/19 04/26/20 mg-hydrochlorothiazide 50 mg tablet Previous Rx's Medication Instructions Recorded meclizine 25 mg PO TID PRN #12 tab 03/29/20 cephalexin [Keflex] 500 mg PO BID 7 Days #14 cap 05/01/20 Allergies Allergy/AdvReac Type Severity Reaction Status Date / Time oxycodone AdvReac Intermediate lethargic Verified 04/26/20 14:34 and tired Review of Systems Constitutional Constitutional: Denies chills, Denies fatigue, Denies fever(s), Denies frequent falls, Denies lethargy and Denies weakness Eyes Eyes: Denies change in vision, Denies eye discharge, Denies irritation and Denies loss of vision ENT Ears, Nose, Mouth, and Throat: Denies change in voice, Denies dizziness, Denies neck pain, Denies sore throat and Denies throat swelling Cardiovascular Cardiovascular: Denies chest pain, Denies irregular heart rhythm, Denies lightheadedness, Denies palpitations, Denies dyspnea, Denies dyspnea on exertion and Denies orthopnea Respiratory Respiratory: Denies cough, Denies dyspnea, Denies dyspnea on exertion and Denies wheezing Gastrointestinal Gastrointestinal: Denies abdominal pain, Denies change in bowel habits, Denies diarrhea, Denies nausea and Denies vomiting Genitourinary Genitourinary: Reports hematuria, Reports dysuria and Reports dysuria Genitourinary: Reports hematuria, Reports dysuria and Reports dysuria Musculoskeletal Musculoskeletal: Denies neck pain and Denies numbness Integumentary/Breasts Skin/Breast: Denies pruritus, Denies erythema, Denies rash and Denies wounds Neurologic Neurologic: Denies behavioral changes, Denies confusion, Denies dizziness, Denies frequent falls, Denies loss of vision, Denies numbness and Denies weakness Psychiatric Psychiatric: Denies anxiety, Denies behavioral changes, Denies confusion, Denies depression, Denies homicidal ideation and Denies suicidal ideation Endocrine Endocrine: Denies fatigue, Denies flushing and Denies palpitations Hematologic/Lymphatic Hematologic/Lymphatic: Denies easy bruising Allergic/Immunologic Allergic/Immunologic: Denies urticaria, Denies throat swelling and Denies wheezing Patient History Medical History (Updated 05/01/20 @ 18:07 by Obed Reyes DO) Anxiety Asthma Colon polyps COPD (chronic obstructive pulmonary disease) Facet arthropathy, lumbar Hearing loss Hyperlipidemia Hypertension Pain of left patella Pulmonary nodule 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 Social History Smoking Status: Former smoker Smoking Status: Former smoker alcohol intake frequency: 3 or more drinks per day Substance Use Type: does not use Exam Narrative Exam Narrative: GEN: AOx3 and in mild distress EYES: Pupils are equal, round, and reactive to light and accommodation. Extraoccular muscles are intact bilaterally. There is no subconjunctival hemorrhage or exudate. CHEST: Lungs are clear to auscultation bilaterally and free of wheezes, rales, or rhonchi. Heart rate is regular rhythm, there are no murmurs, clicks, rubs, or gallops. There is no chest wall tenderness. ABD: Abdomen is soft and nontender. There is no guarding or rebound. Bowel sounds are normal in all 4 quadrants. There is no mass or organomegaly. EXT: Full painless ROM of all extremities with no loss of sensation or strength. SKIN: Warm, pink, and dry. No erythema or rash Initial Vital Signs Initial Vital Signs: Vital Signs Temperature 98.7 F 05/01/20 15:50 Pulse Rate 87 05/01/20 15:50 Respiratory Rate 18 05/01/20 15:50 Blood Pressure 133/71 05/01/20 15:50 Pulse Oximetry 98 05/01/20 15:50 Course Orders Ordered: ED Orders 05/01/20 15:45 Urinalysis and Microscopic Stat Urine Culture Stat Vital Signs Vital signs: Vital Signs - 8 hr 05/01/20 16:56 05/01/20 18:13 Pulse Rate 77 71 Blood Pressure 115/66 156/69 H Pulse Oximetry 94 99 MDM - Male Genitourinary Lab Data Labs: Lab Results 05/01/20 Range/Units 15:45 Urine Color Red Urine Appearance Cloudy Urine pH 6.5 (4.5-8.0) Ur Specific [place] 1.020 (1.000-1.035) Urine Protein 1+ H (Negative) Urine Glucose (UA) Negative (Negative) g/dL Urine Ketones Negative (NEGATIVE) Urine Occult Blood 3+ H (Negative) Urine Nitrate Negative (Negative) Urine Bilirubin Negative (NEGATIVE) Urine Urobilinogen 0.2 (0.2) E.U./dL Ur Leukocyte Esterase 2+ H (NEGATIVE) Urine RBC >100/hpf H (0-5/HPF) Urine WBC 10-30/hpf H (0-5/HPF) Urine Bacteria None seen (None) Ur Culture Indicated? Specimen cultured MDM Narrative Medical decision making narrative: history, exam, urine consistent with UTI. Minimal hematuria. Stable vitals. Largely asymptomatic. Return precautions given, questions answered to his apparent satisfaction. Discharge Plan Departure Patient Disposition: Home Clinical Impression: Urinary tract infection Qualifiers: Urinary tract infection type: acute cystitis Hematuria presence: with hematuria Qualified Code(s): N30.01 - Acute cystitis with hematuria Instructions: DI for Urinary Tract Infection (UTI) Activity Restrictions/Additional Instructions: *You have been diagnosed with [acute urinary tract infection with hematuria] *What to do: *Take medications as directed: Antibiotic has been sent to [facility] at your request *Follow up with your primary care provider in 2-3 days, call for an appointment. Let them know you were seen in the Emergency Department and that we ask that you be seen in follow up *Return to ER if you should have any new, worsening or concerning symptoms, such as [dizziness, weakness, lightheadedness, increased bleeding in the urine, fever, shaking chills or other bothersome symptoms] Prescriptions: New cephalexin [Keflex] 500 mg capsule 500 mg PO BID 7 Days Qty: 14 RF: 0 No Action meclizine 25 mg tablet 25 mg PO TID PRN (Reason: dizziness) Qty: 12 RF: 0 tamsulosin 1 each PO .qday RF: 0 metformin 500 mg tablet 500 mg PO DAILY RF: 0 aspirin 81 mg tablet,delayed release (DR/EC) 81 mg PO DAILY RF: 0 alprazolam [Xanax] 0.5 mg tablet 0.5 mg PO ONCE PRNRF: 0 pravastatin 10 mg tablet 10 mg PO DAILY RF: 0 montelukast 10 mg tablet 10 mg PO QPM RF: 0 albuterol sulfate [Ventolin HFA] 90 mcg/actuation HFA aerosol inhaler 1 puff INHALATION Q6H PRNRF: 0 tiotropium bromide [Spiriva Respimat] 2.5 mcg/actuation mist 2 puff INHALATION DAILY RF: 0 fluticasone furoate [Arnuity Ellipta] 100 mcg/actuation blister with device 1 inhalation INHALATION DAILY RF: 0 diclofenac sodium-menthol 1.5-10 % combo pack TOP PRNRF: 0 potassium 10 mEq PO PRNRF: 0 triamterene-hydrochlorothiazid 75-50 mg TABLET PO RF: 0 oxybutynin chloride 5 mg tablet 5 mg PO BID RF: 0 B-complex with vitamin C [Super B Complex-Vitamin C] Tablet 1 tab PO DAILY RF: 0 hydromorphone [Dilaudid] 2 mg tablet 2 mg PO Q4-6H PRNRF: 0 Referrals: Fidel Edward MD [Primary Care Provider] -
[2020-05-01 18:13] VITALS: BP 156/69; PULSE 71; O2SAT 99
== END 2020-05-01 18:14 | disposition home or self-care (01) ==
PROVIDERS: Emergency Medicine; Emergency Provider Emergency Medicine; PCP Family Medicine
DX: N30.01 Acute cystitis with hematuria (principal); R30.0 Dysuria; I25.10 Atherosclerotic heart disease of native coronary artery without angina pectoris; Z85.46 Personal history of malignant neoplasm of prostate
CPT/HCPCS: 51798; 81001; 87077; 87086; 87186; 99282; 99283

== ENCOUNTER 2020-05-03 12:19 | Emergency (ER) | payer MEDICARE, BC, SELFPAY ==
[2020-05-03] VITALS (18 sets, daily range): BP systolic 91–129; BP diastolic 51–82; PULSE 83–108; RESP 15–29; TEMP 36.8–38.6; O2SAT 92–98; BMI 22.9
--- NOTE | 2020-05-03 12:30 | DI.RAD.S_ITS ---
PROCEDURE: XR CHEST 1V INDICATIONS: suspected sepsis TECHNIQUE: One view of the chest was acquired. COMPARISON: [facility], MR, MR ABDOMEN WO CON, 12/02/2018, 17:11. [facility], CR, XR CHEST 1V, 03/29/2020, 13:48. FINDINGS: Surgical changes and devices: None. Lungs and pleura: Blunting of the left costophrenic angle may be secondary to pleural scarring. Lungs are clear. No pleural effusions or pneumothorax. Mediastinum: Mediastinal contours appear normal. Heart size is normal. Bones and chest wall: No suspicious bony lesions. Overlying soft tissues appear unremarkable. IMPRESSION: 1. No acute cardiopulmonary disease. 2. Blunting of the left costophrenic angle is probably secondary to pleural scarring. Dictated by: Emma Garcia M.D. on 05/03/2020 at 13:10 Approved by: Emma Garcia M.D. on 05/03/2020 at 13:12
[2020-05-03] MEDS: SODIUM CHLORIDE 0.9% 1,000 ML 1000 ML IV (12:45)
[2020-05-03 13:07] LABS: Add Manual Diff / Slide Review NO; Basophils Absolute Auto 100 /uL (0-100); Basophils Percent Auto 0.4 % (0-2); Eosinophils Absolute Auto 0 /uL (0-450); Eosinophils Percent Auto 0.1 % (2-4); Hemoglobin 14.1 g/dL (13.5-17.5); Lymphocytes Absolute Auto 1200 /uL (1100-4500); Lymphocytes Percent Auto 7.1 % (25-40); Mean Corpuscular HGB Conc 34.3 % (30-36); Mean Corpuscular Hemoglobin 32.5 PG (26-34); Mean Corpuscular Volume 94.7 fL (80-100); Monocytes Absolute Auto 1300 /uL (0-900); Monocytes Percent Auto 8.1 % (3-14); Neutrophils Absolute Auto 13800 /uL (1500-7000); Neutrophils Percent Auto 84.3 % (50-75); Platelet Count 272 X10^3/uL (150-400); Red Blood Cell Count 4.33 X10^6/uL (4.5-5.9); White Blood Cell Count 16.4 X10^3/uL (4.5-11.0)
--- NOTE | 2020-05-03 13:08 | ED.GENADULT ---
HPI - General Adult General Chief complaint: Fever Stated complaint: dizzy, balance is off, shakey Time Seen by Provider: 05/03/20 12:45 Source: patient and family Mode of arrival: Ambulatory Limitations: no limitations History of Present Illness HPI narrative: Patient is a 79-year-old male here for evaluation of multiple symptoms to include shaking chills, cold, fevers and generally not feeling very well. He was seen here in this department a couple days ago for hematuria. He was sent home on antibiotics (Keflex). He has been taking this as directed. He states that the hematuria has resolved however he still is having urinary frequency and urgency. He denies chest pain or shortness of breath. No headache. No sore throat. No abdominal pain. No diarrhea. No skin changes. Related Data Home Medications Medication Instructions Recorded Confirmed albuterol sulfate 90 mcg/actuation 1 puff INHALATION Q6H PRN 03/10/18 04/26/20 aerosol inhaler alprazolam 0.5 mg tablet 0.5 mg PO ONCE PRN tab 03/10/18 04/26/20 aspirin 81 mg tablet,delayed 81 mg PO DAILY 03/10/18 04/26/20 release diclofenac sodium 1.5 % topical package TOP PRN ml 03/10/18 04/26/20 drops-menthol 10 % roll-on combo pack fluticasone furoate 100 1 inhalation INHALATION DAILY 03/10/18 04/26/20 mcg/actuation blister powder for inhalation metformin 500 mg tablet 500 mg PO DAILY tab 03/10/18 04/26/20 montelukast 10 mg tablet 10 mg PO QPM 03/10/18 04/26/20 potassium PO PRN 03/10/18 04/26/20 pravastatin 10 mg tablet 10 mg PO DAILY 03/10/18 04/26/20 tiotropium bromide 2.5 2 puff INHALATION DAILY 03/10/18 04/26/20 mcg/actuation mist for inhalation tamsulosin 1 each PO .qday 06/16/18 04/26/20 B-complex with vitamin C 1 tab PO DAILY 09/04/19 04/26/20 hydromorphone 2 mg tablet 2 mg PO Q4-6H PRN 09/04/19 04/26/20 oxybutynin chloride 5 mg tablet 5 mg PO BID 09/04/19 04/26/20 triamterene 75 tab PO 09/04/19 04/26/20 mg-hydrochlorothiazide 50 mg tablet Previous Rx's Medication Instructions Recorded meclizine 25 mg PO TID PRN #12 tab 03/29/20 cephalexin [Keflex] 500 mg PO BID 7 Days #14 cap 05/01/20 levofloxacin 750 mg PO DAILY 4 Days #4 tab 05/03/20 Allergies Allergy/AdvReac Type Severity Reaction Status Date / Time oxycodone AdvReac Intermediate lethargic Verified 05/03/20 12:29 and tired Review of Systems Constitutional Constitutional: Reports body ache(s), Reports chills, Denies fatigue, Denies headache(s) and Denies weakness Eyes Eyes: Denies change in vision ENT Ears, Nose, Mouth, and Throat: Denies vertigo, Denies dizziness, Denies headache(s), Reports disequilibrium and Denies sore throat Cardiovascular Cardiovascular: Denies chest pain and Denies dyspnea Respiratory Respiratory: Denies dyspnea Gastrointestinal Gastrointestinal: Denies abdominal pain, Denies nausea and Denies vomiting Genitourinary Genitourinary: Reports dysuria, Denies urinary incontinence and Reports urinary urgency Genitourinary: Reports dysuria, Denies urinary incontinence and Reports urinary urgency Musculoskeletal Musculoskeletal: Denies arthralgias, Denies back pain and Denies myalgias Integumentary/Breasts Skin/Breast: Denies lesions and Denies rash Neurologic Neurologic: Denies behavioral changes, Denies confusion, Denies vertigo, Denies dizziness, Denies headache(s), Reports disequilibrium and Denies weakness Psychiatric Psychiatric: Denies behavioral changes and Denies confusion Endocrine Endocrine: Denies fatigue and Denies flushing Hematologic/Lymphatic On Anticoagulants: No Allergic/Immunologic Allergic/Immunologic: Denies urticaria Patient History Medical History Anxiety Asthma Colon polyps COPD (chronic obstructive pulmonary disease) Facet arthropathy, lumbar Hearing loss Hyperlipidemia Hypertension Pain of left patella Pulmonary nodule 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 Social History Smoking Status: Former smoker Smoking Status: Former smoker alcohol intake frequency: 3 or more drinks per day Substance Use Type: does not use Exam Initial Vital Signs Initial Vital Signs: Vital Signs Temperature 100.9 F H 05/03/20 12:24 Pulse Rate 108 H 05/03/20 12:24 Respiratory Rate 24 05/03/20 12:24 Blood Pressure 118/82 05/03/20 12:24 Pulse Oximetry 98 05/03/20 12:24 Const General: cooperative, comfortable and well developed Limitations: mental status not altered HENMT Head: normal to inspection and normocephalic Eyes General: appearance normal, both eyes and all related structures Resp Effort & Inspection: normal respiratory effort Auscultation: clear to auscultation bilaterally Cardio Rate: tachycardic Rhythm: regular rhythm Pulses: radial pulses present GI Inspection: non-distended Palpation: soft, No firm and No tender Skin Lesions: no lesions Rashes: no rashes Neuro General: patient alert, patient awake and patient oriented x3 Cognition: normal cognition Speech: speech normal Motor: muscle tone normal throughout Sensory Exam: no sensory deficits noted Extrem General: normal to inspection and capillary refill normal Psych Appearance: grossly normal and well kempt Scores GCS [place] coma scale eye opening: Spontaneous [place] coma scale verbal response: Orientated [place] coma scale motor response: Obey commands Sona coma scale total score: 15 Course Orders Ordered: ED Orders 05/03/20 12:30 XR chest 1V Stat EKG-12 Lead Stat RT Consult Eval and Treat Now 05/03/20 12:50 Complete Blood Count AUTO DIFF Stat Comprehensive Metabolic Panel Stat Lactate (Lactic Acid) Stat Lipase Stat NT-proBNP (BNP-Adult 18+) Stat Partial Thromboplastin Time Stat Procalcitonin Stat Prothrombin Time INR Stat Troponin & CK Cardiac Panel Stat 05/03/20 13:09 CT kidney ureter bladder (KUB) Stat 05/03/20 13:16 COVID19 Stat 05/03/20 13:29 Blood Culture Stat Discontinued Medications Acetaminophen (Acetaminophen 325 Mg Tablet) 650 mg PO NOW ONE Stop: 05/03/20 12:57 Last Admin: 05/03/20 13:27 Dose: 650 mg Documented by: YENNIFER Sodium Chloride (Normal Saline 0.9%) 1,000 mls @ 1,000 mls/hr IV BOLUS ONE Stop: 05/03/20 13:28 Last Infusion: 05/03/20 14:08 Dose: 0 mls/hr Documented by: Admin: 05/03/20 12:45 Dose: 1,000 mls/hr Documented by: LAVINIA Ceftriaxone Sodium/Dextrose (Rocephin) 1 gm in 50 mls @ 100 mls/hr IV NOW ONE Stop: 05/03/20 13:38 Last Infusion: 05/03/20 14:08 Dose: 0 mls/hr Documented by: Admin: 05/03/20 13:29 Dose: 100 mls/hr Documented by: YENNIFER Levofloxacin (Levofloxacin 250 Mg Tablet) 250 mg PO NOW ONE Stop: 05/03/20 14:34 Last Admin: 05/03/20 14:38 Dose: 250 mg Documented by: LAVINIA Vital Signs Vital signs: Vital Signs - 8 hr 05/03/20 12:24 05/03/20 12:37 05/03/20 12:45 Temperature 100.9 F H Pulse Rate 108 H 97 H 101 H Respiratory Rate 24 20 25 H Blood Pressure 118/82 129/62 Pulse Oximetry 98 93 96 05/03/20 13:00 05/03/20 13:15 05/03/20 13:27 Temperature 101.3 F H 101.5 F H Pulse Rate 97 H 97 H Respiratory Rate 21 28 H Blood Pressure 125/60 Pulse Oximetry 92 98 05/03/20 13:30 05/03/20 13:46 05/03/20 13:47 Temperature Pulse Rate 93 H 93 H 91 H Respiratory Rate 24 18 Blood Pressure 116/64 107/55 L Pulse Oximetry 97 97 97 05/03/20 14:00 05/03/20 14:01 05/03/20 14:09 Temperature 98.7 F Pulse Rate 91 H 91 H Respiratory Rate 22 29 H Blood Pressure 105/51 L Pulse Oximetry 96 96 05/03/20 14:15 05/03/20 14:30 05/03/20 14:45 Temperature Pulse Rate 90 86 83 Respiratory Rate 24 15 20 Blood Pressure 96/54 L Pulse Oximetry 97 96 95 05/03/20 15:00 05/03/20 15:07 05/03/20 15:14 Temperature 98.2 F Pulse Rate 85 84 Respiratory Rate 20 21 Blood Pressure 91/52 L 105/59 L Pulse Oximetry 96 95 Medical Decision Making Lab Data Lab results reviewed: Yes I reviewed the patient's lab results. Result diagrams: 05/03/20 12:50 05/03/20 12:50 Labs: Lab Results 05/03/20 05/03/20 05/03/20 Range/Units 12:50 12:50 12:50 WBC 16.4 H (4.5-11.0) X10^3/uL RBC 4.33 L (4.5-5.9) X10^6/uL Hgb 14.1 (13.5-17.5) g/dL Hct 41.0 (41-53) % MCV 94.7 (80-100) fL MCH 32.5 (26-34) PG MCHC 34.3 (30-36) % RDW 13.0 (11.6-14.8) % Plt Count 272 (150-400) X10^3/uL Neut % (Auto) 84.3 H (50-75) % Lymph % (Auto) 7.1 L (25-40) % Cochran % (Auto) 8.1 (3-14) % Eos % (Auto) 0.1 L (2-4) % Baso % (Auto) 0.4 (0-2) % Neut # (Auto) 57583 H (2486-6162) /uL Lymph # (Auto) 1200 (8099-8901) /uL Cochran # (Auto) 1300 H (0-900) /uL Eos # (Auto) 0 (0-450) /uL Baso # (Auto) 100 (0-100) /uL PT 13.6 H (10.1-12.7) SECONDS INR 1.2 (0.9-1.3) APTT 32 (26.4-36.2) SECONDS Sodium 132 L (137-145) mmol/L Potassium 3.5 (3.4-5.1) mmol/L Chloride 95 L (98-107) mmol/L Carbon Dioxide 33 H (22-32) mmol/L BUN 18 (9-20) mg/dL Creatinine 0.68 (0.66-1.25) mg/dL Estimated GFR > 60.0 (>60) mL/min BUN/Creatinine Ratio 26.5 H (6-22) Glucose 167 H (80-110) mg/dL Lactate (0.7-2.1) mmol/L Calcium 9.7 (8.4-10.2) mg/dL Total Bilirubin 0.7 (0.2-1.3) mg/dL AST 26 (17-59) IU/L ALT 22 (<50) IU/L Alkaline Phosphatase 118 (38-126) U/L Total Creatine Kinase 39 L (55-170) U/L CK-MB (CK-2) TNP CK-MB (CK-2) Rel Index TNP Troponin I < 0.012 (0.01-0.034) ng/mL NT-Pro-B Natriuret Pep 507 H (<450) pg/mL Total Protein 7.5 (6.3-8.2) g/dL Albumin 4.2 (3.5-5.0) g/dL Globulin 3.3 (1.7-4.1) g/dL Albumin/Globulin Ratio 1.3 (1.0-2.8) Lipase 51 (23-300) U/L Procalcitonin 0.27 (<0.5) ng/mL SARS-CoV-2 (PCR) (Negative) 05/03/20 05/03/20 Range/Units 12:50 13:16 WBC (4.5-11.0) X10^3/uL RBC (4.5-5.9) X10^6/uL Hgb (13.5-17.5) g/dL Hct (41-53) % MCV (80-100) fL MCH (26-34) PG MCHC (30-36) % RDW (11.6-14.8) % Plt Count (150-400) X10^3/uL Neut % (Auto) (50-75) % Lymph % (Auto) (25-40) % Cochran % (Auto) (3-14) % Eos % (Auto) (2-4) % Baso % (Auto) (0-2) % Neut # (Auto) (1682-5528) /uL Lymph # (Auto) (2085-1824) /uL Cochran # (Auto) (0-900) /uL Eos # (Auto) (0-450) /uL Baso # (Auto) (0-100) /uL PT (10.1-12.7) SECONDS INR (0.9-1.3) APTT (26.4-36.2) SECONDS Sodium (137-145) mmol/L Potassium (3.4-5.1) mmol/L Chloride (98-107) mmol/L Carbon Dioxide (22-32) mmol/L BUN (9-20) mg/dL Creatinine (0.66-1.25) mg/dL Estimated GFR (>60) mL/min BUN/Creatinine Ratio (6-22) Glucose (80-110) mg/dL Lactate 1.4 (0.7-2.1) mmol/L Calcium (8.4-10.2) mg/dL Total Bilirubin (0.2-1.3) mg/dL AST (17-59) IU/L ALT (<50) IU/L Alkaline Phosphatase (38-126) U/L Total Creatine Kinase (55-170) U/L CK-MB (CK-2) CK-MB (CK-2) Rel Index Troponin I (0.01-0.034) ng/mL NT-Pro-B Natriuret Pep (<450) pg/mL Total Protein (6.3-8.2) g/dL Albumin (3.5-5.0) g/dL Globulin (1.7-4.1) g/dL Albumin/Globulin Ratio (1.0-2.8) Lipase (23-300) U/L Procalcitonin (<0.5) ng/mL SARS-CoV-2 (PCR) Negative (Negative) Imaging Data Chest x-ray: Radiologist's Impression: [address] [id number] ReportSigned Patient: Pamela Roberts#: [id number]: 2Acct:[id number]/Sex: 79 / MDate of Service: 05/03/20Loc: EDAccession Number: [id number] Procedure: XR chest 1V Ordering Provider: Stefan Spivey D.O. PROCEDURE: XR CHEST 1V INDICATIONS: suspected sepsis TECHNIQUE: One view of the chest was acquired. COMPARISON: [facility], MR, MR ABDOMEN WO CON, 12/02/2018, 17:11. [facility], CR, XR CHEST 1V, 03/29/2020, 13:48. FINDINGS: Surgical changes and devices: None. Lungs and pleura: Blunting of the left costophrenic angle may be secondary to pleural scarring. Lungs are clear. No pleural effusions or pneumothorax. Mediastinum: Mediastinal contours appear normal. Heart size is normal. Bones and chest wall: No suspicious bony lesions. Overlying soft tissues appear unremarkable. IMPRESSION: 1. No acute cardiopulmonary disease. 2. Blunting of the left costophrenic angle is probably secondary to pleural scarring. Dictated by: Emma Garcia M.D. on 05/03/2020 at 13:10 Approved by: Emma Garcia M.D. on 05/03/2020 at 13:12 ECG Data Attestation: I personally reviewed and interpreted this ECG as follows: Prior ECG tracings: available for review Interpretation: Sinus rhythm Ventricular rate of 98 Left bundle-branch block MDM Narrative Medical decision making narrative: Patient has no headache, no sore throat, no chest pain, no Shortness of breath, no cough, chest x-ray shows no signs of pneumonia. He has no abdominal tenderness. No diarrhea. Has a benign abdominal exam. He is having dysuria. Review of the culture from a couple days ago does show E coli with 20-30 colony-forming units That is pansensitive. He has no skin changes. No back pain. His COVID is negative. Given his presentation today have to expect that the most likely source of his infection is urine as this is the only positive findings on review of systems or on exam. He does have what appears to be a pansensitive E coli however does not seem to be improving on Keflex. I suspect that his fevers and chills and body aches related to his fevers. I did discuss the case with Dr. nieto has a did have some concern about the fact that he has been on antibiotics and that the urinalysis does show bacteria but is not greater than 100,000 colony-forming units Does meet sepsis criteria however it was felt given his presentation and the fact that he can tolerate oral antibiotics that we should change his antibiotics to Levaquin and discharged home. I discussed this with the patient who expressed agreement with this. He is given 1st dose of antibiotics here in the emergency department. He was given strict return precautions and told to come back if his symptoms worsened. He expressed understanding and agreement. Discharge Plan Departure Patient Disposition: Home Clinical Impression: Urinary tract infection Instructions: DI for Urinary Tract Infection (UTI) Activity Restrictions/Additional Instructions: The plan will be is to change your current antibiotics (Keflex/Cephalexin) that you were given during your last visit here in the ER to a medicine called Lito. Take this medication as directed. Since you were given the 1st dose of this medicine here in the ER here next dose will be tomorrow Wednesday05/04/20. Be sure to increase your fluid intake. You can continue the rest of your medications as directed. You can take Tylenol for any fevers or body aches. Return to the emergency department for any new or worsening symptoms Prescriptions: New levofloxacin 750 mg tablet 750 mg PO DAILY 4 Days Qty: 4 RF: 0 No Action cephalexin [Keflex] 500 mg capsule 500 mg PO BID 7 Days Qty: 14 RF: 0 meclizine 25 mg tablet 25 mg PO TID PRN (Reason: dizziness) Qty: 12 RF: 0 tamsulosin 1 each PO .qday RF: 0 metformin 500 mg tablet 500 mg PO DAILY RF: 0 aspirin 81 mg tablet,delayed release (DR/EC) 81 mg PO DAILY RF: 0 alprazolam [Xanax] 0.5 mg tablet 0.5 mg PO ONCE PRNRF: 0 pravastatin 10 mg tablet 10 mg PO DAILY RF: 0 montelukast 10 mg tablet 10 mg PO QPM RF: 0 albuterol sulfate [Ventolin HFA] 90 mcg/actuation HFA aerosol inhaler 1 puff INHALATION Q6H PRNRF: 0 tiotropium bromide [Spiriva Respimat] 2.5 mcg/actuation mist 2 puff INHALATION DAILY RF: 0 fluticasone furoate [Arnuity Ellipta] 100 mcg/actuation blister with device 1 inhalation INHALATION DAILY RF: 0 diclofenac sodium-menthol 1.5-10 % combo pack TOP PRNRF: 0 potassium 10 mEq PO PRNRF: 0 triamterene-hydrochlorothiazid 75-50 mg TABLET PO RF: 0 oxybutynin chloride 5 mg tablet 5 mg PO BID RF: 0 B-complex with vitamin C [Super B Complex-Vitamin C] Tablet 1 tab PO DAILY RF: 0 hydromorphone [Dilaudid] 2 mg tablet 2 mg PO Q4-6H PRNRF: 0 Referrals: Fidel Edward MD [Primary Care Provider] -
--- NOTE | 2020-05-03 13:09 | DI.CT.S_ITS ---
PROCEDURE: CT KIDNEY URETER BLADDER (KUB) INDICATIONS: Eval for left-sided stone TECHNIQUE: Noncontrast 5 mm thick sections acquired from the diaphragms to the symphysis. 5 mm thick coronal and sagittal reformats were then performed. For radiation dose reduction, the following was used: automated exposure control, adjustment of mA and/or kV according to patient size. COMPARISON: None. FINDINGS: Image quality: Excellent. Lung bases: Lung bases are clear. Heart size is normal. Trace pericardial effusion. Urinary system: Both kidneys are normal in size. No kidney stones. No hydronephrosis or perinephric fat stranding. Both ureters appear non-dilated throughout their expected courses. Bladder wall thickness is normal; no calcified bladder stones. Left renal cyst is noted. Other solid organs: Liver is normal in size. Gallbladder is unremarkable . Pancreas is normal in contours. Spleen is normal in size. No adrenal nodules. Peritoneum and bowel: Unenhanced bowel loops demonstrate normal wall thickness and caliber. No free fluid or air. Prominent hiatal hernia. Moderate colonic stool without obstruction. Nodes and vessels: No retroperitoneal or mesenteric adenopathy by size criteria. Aorta demonstrates infrarenal ectasia. Abdominal wall: No ventral hernias. Pelvis: No free pelvic fluid. No inguinal hernias or adenopathy. Bones: No suspicious bony lesions. No vertebral body compression fractures. IMPRESSION: 1. No renal, ureteral or bladder calculi. 2. Moderate colonic stool without obstruction. Dictated by: Monica Acosta M.D. on 05/03/2020 at 13:06 Approved by: Monica Acosta M.D. on 05/03/2020 at 13:10
[2020-05-03 13:16] LABS: INR 1.2 (0.9-1.3); Prothrombin Time 13.6 SECONDS (10.1-12.7)
[2020-05-03 13:19] LABS: PTT Partial Thromboplastin Tim 32 SECONDS (26.4-36.2)
[2020-05-03 13:21] LABS: COVID19 -Nasal RAPID Negative (Negative)
[2020-05-03 13:22] LABS: Alanine Aminotransferase 22 IU/L (<50); Albumin 4.2 g/dL (3.5-5.0); Albumin Globulin Ratio 1.3 (1.0-2.8); Alkaline Phosphatase 118 U/L (38-126); Aspartate Aminotransferase 26 IU/L (17-59); BUN Creatinine Ratio 26.5 (6-22); Bilirubin Total 0.7 mg/dL (0.2-1.3); Blood Urea Nitrogen 18 mg/dL (9-20); Calcium 9.7 mg/dL (8.4-10.2); Carbon Dioxide 33 mmol/L (22-32); Chloride 95 mmol/L (98-107); Creatine Kinase 39 U/L (55-170); Estimated Glomerular Filt Rate > 60.0 mL/min (>60); Globulin 3.3 g/dL (1.7-4.1); Glucose 167 mg/dL (80-110); HEMOLYSIS < 15 (0-50); Lactate (Lactic Acid) 1.4 mmol/L (0.7-2.1); Lipase 51 U/L (23-300); Potassium 3.5 mmol/L (3.4-5.1); Sodium 132 mmol/L (137-145); Total Protein 7.5 g/dL (6.3-8.2)
[2020-05-03] MEDS: ACETAMINOPHEN 325 MG TABLET 650 MG PO (13:27)
[2020-05-03] MEDS: CEFTRIAXONE 1 GM/50 ML FROZ.PIGGY IV (13:29)
[2020-05-03 13:53] LABS: NT-proBNP (BNP-Adult 18+) 507 pg/mL (<450); Troponin I < 0.012 ng/mL (0.01-0.034)
[2020-05-03 13:54] LABS: Procalcitonin 0.27 ng/mL (<0.5)
[2020-05-03] MEDS: levoFLOXacin 250 MG TABLET PO (14:38)
== END 2020-05-03 15:14 | disposition home or self-care (01) ==
PROVIDERS: Emergency Provider Emergency Medicine; PCP Family Medicine
DX: N39.0 Urinary tract infection, site not specified (principal); R50.9 Fever, unspecified; R30.0 Dysuria; R00.0 Tachycardia, unspecified; Z20.822 Contact with and (suspected) exposure to COVID-19
CPT/HCPCS: 36415; 51798; 71045; 74176; 80053; 82550; 83605; 83690; 83880; 84145; 84484; 85025; 85610; 85730; 87040; 87635; 93005; 96361; 96365; 99284; C9803

== ENCOUNTER → 2020-06-27 11:16 | Outpatient (CLI) | payer MEDICARE, BC, SELFPAY ==
--- NOTE | 2020-06-27 11:19 | DI.RAD.S_ITS ---
PROCEDURE: XR KNEE LT 3V INDICATIONS: left knee pain and replacement TECHNIQUE: 3 views of the knee were acquired. COMPARISON: [facility], , XR KNEE LT 3V, 09/04/2019, 13:52. FINDINGS: Bones: Stable appearance of left TKA. No periprosthetic fractures or evidence of loosening/infection. Soft tissues: Moderate joint effusion. No suspicious soft tissue calcifications. IMPRESSION: Stable appearance of left TKA. Dictated by: Travis Perkins [facility] Interpreted: Alejandro Ingram MD on 06/27/2020 at 14:53 Approved by: Alejandro Ingram M.D. on 06/28/2020 at 17:59
--- NOTE | 2020-06-27 11:19 | DI.RAD.S_ITS ---
PROCEDURE: XR LUMBAR SPINE 2-3V INDICATIONS: Chronic back pain TECHNIQUE: 3 views of the lumbar spine were acquired. COMPARISON: [facility], CT, CT KIDNEY URETER BLADDER (KUB), 05/03/2020, 13:39. [facility], CR, XR LUMBAR SPINE MIN 4V, 05/25/2018, 12:57. FINDINGS: Bones: 5 [id number] vertebrae are present. Trace multilevel retrolisthesis. Moderate multilevel disc degeneration and facet joint arthropathy at the L5-S1 level.. No vertebral body compression fractures. No suspicious bony lesions. Soft tissues: Overlying bowel gas pattern is normal. No suspicious soft tissue calcifications. Vascular calcifications indicate atherosclerosis. Mild aneurysmal dilatation of the distal abdominal aorta as was seen on prior CT scan. IMPRESSION: Multilevel spondylosis. Dictated by: Travsi Perkins [facility] Interpreted: Alejandro Ingram MD on 06/27/2020 at 14:38 Approved by: Alejandro Ingram M.D. on 06/28/2020 at 17:59
[2020-06-27 12:02] LABS: RBC Urine None Seen (0-5/HPF)
[2020-06-27 12:15] LABS: Appearance Urine UA CLEAR; Bilirubin Urine UA NEGATIVE (NEGATIVE); Color Urine UA YELLOW; Glucose Urine UA NEGATIVE (Negative); Ketones Urine UA NEGATIVE (NEGATIVE); Leukocyte Esterase Urine UA 1+ (NEGATIVE); Nitrite Urine UA POSITIVE (Negative); Occult Blood Urine UA NEGATIVE (Negative); Protein Urine UA NEGATIVE (Negative); Urobilinogen Urine UA 0.2 E.U./dL (0.2)
[2020-06-27 12:16] LABS: Add Manual Diff / Slide Review NO; Basophils Absolute Auto 100 /uL (0-100); Eosinophils Absolute Auto 100 /uL (0-450); Eosinophils Percent Auto 1.8 % (2-4); Hematocrit 42.6 % (41-53); Hemoglobin 14.8 g/dL (13.5-17.5); Lymphocytes Absolute Auto 1700 /uL (1100-4500); Lymphocytes Percent Auto 31.5 % (25-40); Mean Corpuscular HGB Conc 34.7 % (30-36); Mean Corpuscular Hemoglobin 32.1 PG (26-34); Mean Corpuscular Volume 92.6 fL (80-100); Monocytes Absolute Auto 600 /uL (0-900); Monocytes Percent Auto 10.7 % (3-14); Neutrophils Absolute Auto 2900 /uL (1500-7000); Platelet Count 252 X10^3/uL (150-400); Red Blood Cell Count 4.59 X10^6/uL (4.5-5.9); Red Cell Distribution Width 13.8 % (11.6-14.8); White Blood Cell Count 5.3 X10^3/uL (4.5-11.0)
[2020-06-27 12:29] LABS: Bacteria Urine Many (>30); Culture Indicated Urine Specimen Cultured; WBC Urine 30-100/HPF (0-5/HPF)
[2020-06-27 13:04] LABS: Prostate Specific Antigen Scrn 9.46 ng/mL (0.1-4.0)
== END ==
PROVIDERS: PCP Family Medicine; Referring Provider Family Medicine; Visit Provider Family Medicine
DX: M17.12 Unilateral primary osteoarthritis, left knee (principal); N30.01 Acute cystitis with hematuria; Z12.5 Encounter for screening for malignant neoplasm of prostate; M47.816 Spondylosis without myelopathy or radiculopathy, lumbar region
CPT/HCPCS: 36415; 72100; 73562; 81001; 85025; 87077; 87086; 87186; G0103

== ENCOUNTER → 2020-09-27 13:32 | Outpatient (CLI) | payer MEDICARE, BC, SELFPAY ==
--- NOTE | 2020-09-27 13:35 | DI.MRI.S_ITS ---
PROCEDURE: MR KNEE LT WO CON INDICATIONS: Presence of left artificial knee joint TECHNIQUE: Noncontrast sagittal PD fast spin echo and T2 fast spin echo with fat saturation, sagittal 3-D FLASH with fat saturation; coronal T1 spin echo and PD fast spin echo with fat saturation, and axial PD fast spin echo with fat saturation through the knee. [facility] [place], [facility], XR KNEE STANDING BILATERAL, 08/26/2020, 11:51. FINDINGS: Image quality: Degraded by knee arthroplasty artifact. Visualized osseous structures are grossly unremarkable and evaluation is limited by knee arthroplasty artifact. Medial and lateral collateral ligaments are grossly intact. Iliotibial band is grossly intact. Extensor mechanism is grossly intact. Appears to be moderate knee joint fluid. IMPRESSION: 1. Limited examination demonstrating a knee joint effusion and otherwise negative. Dictated by: Karyna Lema M.D. on 09/27/2020 at 14:55 Approved by: Karyna Lema M.D. on 09/27/2020 at 14:56
== END ==
PROVIDERS: PCP Family Medicine; Referring Provider Orthopaedic Surgery Adult Reconstructive Orthopaedic Surgery; Visit Provider Orthopaedic Surgery Adult Reconstructive Orthopaedic Surgery
DX: Z96.652 Presence of left artificial knee joint (principal); M25.462 Effusion, left knee
CPT/HCPCS: 73721

== ENCOUNTER → 2021-05-09 09:36 | Outpatient (CLI) | payer MEDICARE, BC, SELFPAY ==
[2021-05-09 10:22] LABS: Add Manual Diff / Slide Review NO; Basophils Absolute Auto 0 /uL (0-100); Basophils Percent Auto 0.9 % (0-2); Eosinophils Absolute Auto 100 /uL (0-450); Eosinophils Percent Auto 2.6 % (2-4); Hematocrit 42.1 % (41-53); Hemoglobin 14.7 g/dL (13.5-17.5); Lymphocytes Absolute Auto 1400 /uL (1100-4500); Lymphocytes Percent Auto 29.5 % (25-40); Mean Corpuscular Hemoglobin 31.9 PG (26-34); Mean Corpuscular Volume 91.1 fL (80-100); Monocytes Absolute Auto 500 /uL (0-900); Monocytes Percent Auto 10.2 % (3-14); Neutrophils Absolute Auto 2800 /uL (1500-7000); Neutrophils Percent Auto 56.8 % (50-75); Platelet Count 217 X10^3/uL (150-400); Red Blood Cell Count 4.63 X10^6/uL (4.5-5.9); Red Cell Distribution Width 13.3 % (11.6-14.8); White Blood Cell Count 4.9 X10^3/uL (4.5-11.0)
[2021-05-09 10:33] LABS: Hemoglobin A1C% w Est Avg Glu 5.4 % (4.0-6.0)
[2021-05-09 10:46] LABS: Alanine Aminotransferase 22 IU/L (<50); Albumin 4.7 g/dL (3.5-5.0); Albumin Globulin Ratio 1.5 (1.0-2.8); Alkaline Phosphatase 92 U/L (38-126); Aspartate Aminotransferase 30 IU/L (17-59); BUN Creatinine Ratio 23.1 (6-22); Bilirubin Total 0.6 mg/dL (0.2-1.3); Blood Urea Nitrogen 15 mg/dL (9-20); Calcium 9.7 mg/dL (8.4-10.2); Carbon Dioxide 33 mmol/L (22-32); Chloride 97 mmol/L (98-107); Cholesterol 218 mg/dL (140-199); Estimated Glomerular Filt Rate > 60.0 mL/min (>60); Globulin 3.1 g/dL (1.7-4.1); Glucose 103 mg/dL (80-110); HDL Cholesterol 97 mg/dL (40-60); HEMOLYSIS < 15 (0-50); LDL Cholesterol Calculated 108 mg/dL (<100); Potassium 3.8 mmol/L (3.4-5.1); Sodium 137 mmol/L (137-145); Total Protein 7.8 g/dL (6.3-8.2); Triglycerides 65 mg/dL (35-150)
[2021-05-09 10:48] LABS: NT-proBNP (BNP-Adult 18+) 65 pg/mL (<450)
[2021-05-09 11:10] LABS: Prostate Specific Antigen Scrn 9.76 ng/mL (0.1-4.0)
[2021-05-09 17:48] LABS: Appearance Urine UA CLEAR; Bilirubin Urine UA NEGATIVE (NEGATIVE); Color Urine UA YELLOW; Glucose Urine UA NEGATIVE (Negative); Ketones Urine UA NEGATIVE (NEGATIVE); Leukocyte Esterase Urine UA NEGATIVE (NEGATIVE); Nitrite Urine UA NEGATIVE (Negative); Occult Blood Urine UA NEGATIVE (Negative); Protein Urine UA NEGATIVE (Negative); Specific Gravity Urine UA 1.015 (1.000-1.035); Urobilinogen Urine UA 0.2 E.U./dL (0.2)
[2021-05-09 18:04] LABS: Bacteria Urine None Seen; Culture Indicated Urine Cult Not Indicated; RBC Urine 0-1/HPF (0-5/HPF); Squamous Epithelial Cell Urine 0-1 /HPF (0-5/HPF); WBC Urine 0-1/HPF (0-5/HPF)
[2021-05-09 18:21] LABS: Creatinine Urine Random 45.8 mg/dL
[2021-05-09 18:27] LABS: Microalbumin Urine Random < 0.6 mg/dL (0-1.6)
== END ==
PROVIDERS: PCP Family Medicine; Referring Provider Family Medicine; Visit Provider Family Medicine
DX: C61 Malignant neoplasm of prostate (principal); R06.02 Shortness of breath; J42 Unspecified chronic bronchitis; I25.10 Atherosclerotic heart disease of native coronary artery without angina pectoris; Z12.5 Encounter for screening for malignant neoplasm of prostate; E78.2 Mixed hyperlipidemia; I10 Essential (primary) hypertension; R91.1 Solitary pulmonary nodule; Z95.5 Presence of coronary angioplasty implant and graft; R42 Dizziness and giddiness; R73.9 Hyperglycemia, unspecified
CPT/HCPCS: 36415; 80053; 80061; 81001; 82043; 82570; 83036; 83880; 85025; G0103

== ENCOUNTER → 2021-05-16 13:35 | Outpatient (CLI) | payer MEDICARE, BC, SELFPAY ==
--- NOTE | 2021-05-16 13:37 | DI.CT.S_ITS ---
PROCEDURE: CT CHEST WO CON INDICATIONS: shortness of breath w/exertion, emphysema, pulmonary nodule TECHNIQUE: Noncontrast 5 mm thick sections acquired from the pulmonary apices to the posterior costophrenic angles. 1 mm lung window, 5 mm thick coronal and sagittal and 7 mm axial MIP reformats were then acquired. For radiation dose reduction, the following was used: automated exposure control, adjustment of mA and/or kV according to patient size. COMPARISON: [facility], CT, CT KIDNEY URETER BLADDER (KUB), 05/03/2020, 13:39. FINDINGS: Image quality: Excellent. Lungs and pleura: Centrilobular emphysematous change. Honeycombing of the left lower lobe. No consolidation, pleural effusions or pneumothorax. 1 x 0.9 cm nodule in the right middle lobe (3-286), unchanged. Central and peripheral airways are patent and normal in caliber. Mediastinum: Heart size is normal. No pericardial effusion. Coronary artery calcification. No mediastinal adenopathy by size criteria. Thoracic aorta and central pulmonary arteries are normal in size. Esophagus is normal in caliber. Small hiatal hernia. Bones and chest wall: Multifocal degenerative change. No vertebral body compression fractures. No axillary or supraclavicular adenopathy by size criteria. Thyroid gland demonstrates homogeneous attenuation. Abdomen: No significant abnormality. 3.2 cm hypoattenuating lesion in the left upper pole, most consistent with a cyst. IMPRESSION: 1. No significant interval change of the right lower lobe nodular density, which may reflect a pulmonary nodule versus scarring. Consider PET/CT for further evaluation as clinically warranted. Dictated by: Stef Alonso M.D. on 05/16/2021 at 15:31 Approved by: Stef Alonso M.D. on 05/16/2021 at 15:44
== END ==
PROVIDERS: PCP Family Medicine; Referring Provider Family Medicine; Visit Provider Family Medicine
DX: R06.02 Shortness of breath (principal); J42 Unspecified chronic bronchitis; R91.1 Solitary pulmonary nodule
CPT/HCPCS: 71250

== ENCOUNTER → 2021-06-13 09:47 | Outpatient (CLI) | payer MEDICARE, BC, SELFPAY | PROVIDERS: PCP Family Medicine; Referring Provider Family Medicine; Visit Provider Family Medicine | DX: Z95.5 Presence of coronary angioplasty implant and graft (principal); I10 Essential (primary) hypertension; E78.5 Hyperlipidemia, unspecified; I25.10 Atherosclerotic heart disease of native coronary artery without angina pectoris; C61 Malignant neoplasm of prostate; R42 Dizziness and giddiness; R06.02 Shortness of breath; G47.33 Obstructive sleep apnea (adult) (pediatric); R91.1 Solitary pulmonary nodule | CPT/HCPCS: 36415; 86900; 86901 ==

== ENCOUNTER → 2021-07-09 12:19 | Outpatient (CLI) | payer MEDICARE, BC, SELFPAY ==
[2021-07-09 14:29] LABS: Prostate Specific Antigen Scrn 6.66 ng/mL (0.1-4.0)
== END ==
PROVIDERS: PCP Family Medicine; Referring Provider Physician Assistant Medical; Visit Provider Physician Assistant Medical
DX: Z12.5 Encounter for screening for malignant neoplasm of prostate (principal)
CPT/HCPCS: 36415; G0103

== ENCOUNTER 2022-01-07 11:25 | Emergency (ER) | payer MEDICARE, BC, SELFPAY ==
[2022-01-07] VITALS (7 sets, daily range): BP systolic 119–148; BP diastolic 58–74; PULSE 93–104; RESP 15; TEMP 37.2; O2SAT 96–98; BMI 24.4
[2022-01-07 12:08] LABS: Appearance Urine UA TURBID; Bilirubin Urine UA 1+ (NEGATIVE); Glucose Urine UA NEGATIVE (Negative); Ketones Urine UA TRACE (NEGATIVE); Leukocyte Esterase Urine UA TRACE (NEGATIVE); Nitrite Urine UA NEGATIVE (Negative); Occult Blood Urine UA 3+ (Negative); Protein Urine UA 3+ (Negative); Specific Gravity Urine UA 1.015 (1.000-1.035); pH Urine UA 6.5 (4.5-8.0)
[2022-01-07 12:21] LABS: Color Urine UA RED
[2022-01-07 12:22] LABS: Bacteria Urine Many (>30); Culture Indicated Urine Specimen Cultured; Ictotest Urine Negative (Negative); RBC Urine >100/HPF (0-5/HPF); WBC Urine 30-100/HPF (0-5/HPF)
--- NOTE | 2022-01-07 16:19 | ED_ITS ---
HPI - Male Genitourinary General Chief complaint: Urogenital-Male Stated complaint: States, urine is all blood x2 days Time Seen by Provider: 01/07/22 16:15 Source: patient Mode of arrival: Wheelchair Limitations: no limitations History of Present Illness HPI Narrative: Patient has hematuria intermittently for about 2 days. The hematuria is now persistent. He is lower abdominal pressure. He has a history of BPH. He has frequency, decreased volume with urination. He is a prior history of sepsis related to prostatitis. He denies fever, chills, weakness or dizziness. He is no headache, no visual changes, no URI symptoms. He is no chest pain, no dyspnea. He is no abdominal pain or GI symptoms. He denies mid back pain. He is no history of pyelonephritis. Related Data Home Medications Medication Instructions Recorded Confirmed albuterol sulfate 90 mcg/actuation 1 puff inhalation Q6H PRN 03/10/18 01/01/22 aerosol inhaler (Ventolin HFA) aspirin 81 mg tablet,delayed 81 mg PO DAILY 03/10/18 01/01/22 release potassium PO PRN 03/10/18 01/01/22 B-complex with vitamin C (Super B 1 tab PO DAILY 09/04/19 01/01/22 Complex-Vitamin C tablet) Previous Rx's Medication Instructions Recorded tiotropium bromide 2.5 See Rx Instructions .Route 03/20/21 mcg/actuation mist for inhalation .COMPLEX #12 grams (Spiriva Respimat) potassium chloride 10 mEq 10 meq PO BID #60 tabs 05/19/21 tablet,extended release pravastatin 10 mg tablet 10 mg PO DAILY #90 tabs 06/26/21 montelukast 10 mg tablet 10 mg PO QPM #30 tabs 09/10/21 metformin 500 mg tablet See Rx Instructions .Route 09/18/21 .COMPLEX #180 tabs triamterene 37.5 See Rx Instructions .Route 11/24/21 mg-hydrochlorothiazide 25 mg tablet .COMPLEX #90 tabs alprazolam 0.5 mg tablet See Rx Instructions .Route 12/22/21 .COMPLEX #60 tabs ciprofloxacin HCl 250 mg tablet 250 mg PO BID #42 tabs 01/07/22 (Cipro) Allergies Allergy/AdvReac Type Severity Reaction Status Date / Time oxycodone AdvReac Intermediate lethargic Verified 01/07/22 11:38 and tired Review of Systems Review of Systems ROS Unobtainable: All systems reviewed & are unremarkable except as noted in HPI and below Patient History Medical History (Updated 01/07/22 @ 18:40 by Randolph Jenkins MD) Anxiety Asthma BPH (benign prostatic hyperplasia) Colon polyps COPD (chronic obstructive pulmonary disease) Facet arthropathy, lumbar Hearing loss Hyperlipidemia Hypertension KORI (obstructive sleep apnea) Osteoarthritis of left knee Pain of left patella Pulmonary nodule 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 Social History Smoking Status: Former smoker Smoking Status: Former smoker alcohol intake frequency: 3 or more drinks per day Substance Use Type: does not use Exam Initial Vital Signs Initial Vital Signs: Vital Signs Temperature 98.9 F 01/07/22 11:38 Pulse Rate 104 H 01/07/22 11:38 Respiratory Rate 15 01/07/22 11:38 Blood Pressure 119/74 01/07/22 11:38 Pulse Oximetry 98 01/07/22 11:38 Oxygen Delivery Method 01/07/22 11:38 Const General: cooperative, healthy appearing and comfortable [facility] Head: normocephalic and atraumatic Resp Effort & Inspection: normal respiratory effort Auscultation: clear to auscultation bilaterally Cardio Palpation: normal PMI Rate: regular rate Rhythm: regular rhythm Heart Sounds: S1 normal, S2 normal and no murmurs GI Inspection: normal to inspection Palpation: soft Auscultation: normal bowel sounds and other (Suprapubic fullness, but without tenderness.) Rectal Exam: normal sphincter tone Other: 4+ BPH. Significant prostate tenderness. No masses. Penis: normal penis Scrotum: scrotum normal and no scrotal swelling Back/Spine/Pelvis Back: normal to inspection and No CVA tenderness Skin General: no rashes or lesions noted Neuro General: patient alert, patient awake and no focal motor deficits Extrem General: normal to inspection, full ROM, no pedal edema and no calf tenderness Psych Appearance: grossly normal Course Course Course Narrative: Patient's evaluation is consistent with prostatitis. CT also suggest cystitis. This may be the source of the hematuria. He is advised to drink plenty of fluids. He was given an initial dose of Levaquin here in the ER. He is prescribed Cipro. He is advised to follow up with Urology. Orders Ordered: ED Orders 01/07/22 11:42 Ictotest Urine Stat Urinalysis and Microscopic Stat Urine Culture Stat 01/07/22 16:40 CT kidney ureter bladder (KUB) Stat 01/07/22 17:10 CBC with manual diff [Complete Blood Count MAN DIFF] Stat CMP [Comprehensive Metabolic Panel] Stat Lactate (Lactic Acid) Stat Prothrombin Time INR Stat Sodium Chloride (Normal Saline 0.9%) 1,000 mls @ 150 mls/hr IV CONT MINERVA Last Admin: 01/07/22 16:58 Dose: 150 mls/hr Documented By: RALPH Discontinued Medications Levofloxacin (Levaquin) 500 mg in 100 mls @ 100 mls/hr IV NOW ONE Stop: 01/07/22 17:39 Last Infusion: 01/07/22 18:08 Dose: 0 mls/hr Documented By: Admin: 01/07/22 16:57 Dose: 100 mls/hr Documented By: RALPH Vital Signs Vital signs: Vital Signs - 8 hr 01/07/22 11:38 01/07/22 16:16 01/07/22 16:14 Temperature 98.9 F Pulse Rate 104 H 97 H Respiratory Rate 15 Blood Pressure 119/74 139/65 139/65 Pulse Oximetry 98 97 Oxygen Delivery Method Room Air 01/07/22 16:14 01/07/22 16:30 01/07/22 18:14 Temperature Pulse Rate 97 H 93 H 100 H Respiratory Rate Blood Pressure Pulse Oximetry 97 96 98 Oxygen Delivery Method 01/07/22 18:15 01/07/22 18:15 Temperature Pulse Rate 99 H Respiratory Rate Blood Pressure 148/58 H Pulse Oximetry 98 Oxygen Delivery Method MDM - Male Genitourinary Lab Data Result diagrams: 01/07/22 17:10 01/07/22 17:10 Labs: Lab Results 01/07/22 01/07/22 01/07/22 Range/Units 11:42 17:10 17:10 WBC 15.5 H (4.5-11.0) X10^3/uL RBC 4.69 (4.5-5.9) X10^6/uL Hgb 14.9 (13.5-17.5) g/dL Hct 42.8 (41-53) % MCV 91.4 (80-100) fL MCH 31.7 (26-34) PG MCHC 34.7 (30-36) % RDW 13.2 (11.6-14.8) % Plt Count 197 (150-400) X10^3/uL Total Counted 100 Seg Neutrophils % 70.0 (38-70) % Band Neutrophils % 6.0 (3-7) % Lymphocytes % (Manual) 14.0 L (25-45) % Monocytes % (Manual) 10.0 (2-11) % Neutrophils # (Manual) 94228 H (0660-2037) /uL RBC Morphology Normal morphology PT 13.0 H (10.1-12.7) SECONDS INR 1.1 (0.9-1.3) Sodium (137-145) mmol/L Potassium (3.4-5.1) mmol/L Chloride (98-107) mmol/L Carbon Dioxide (22-32) mmol/L BUN (9-20) mg/dL Creatinine (0.66-1.25) mg/dL Estimated GFR (>60) mL/min BUN/Creatinine Ratio (6-22) Glucose (80-110) mg/dL Lactate (0.7-2.1) mmol/L Calcium (8.4-10.2) mg/dL Total Bilirubin (0.2-1.3) mg/dL AST (17-59) IU/L ALT (<50) IU/L Alkaline Phosphatase (38-126) U/L Total Protein (6.3-8.2) g/dL Albumin (3.5-5.0) g/dL Globulin (1.7-4.1) g/dL Albumin/Globulin Ratio (1.0-2.8) Urine Color Red Urine Appearance Turbid Urine pH 6.5 (4.5-8.0) Ur Specific Sterling 1.015 (1.000-1.035) Urine Protein 3+ H (Negative) Urine Glucose (UA) Negative (Negative) g/dL Urine Ketones Trace H (NEGATIVE) Urine Occult Blood 3+ H (Negative) Urine Nitrate Negative (Negative) Urine Bilirubin 1+ H (NEGATIVE) Ur Bilirubin Confirm Negative (Negative) Urine Urobilinogen 1.0 (0.2) E.U./dL Ur Leukocyte Esterase Trace H (NEGATIVE) Urine RBC >100/hpf H (0-5/HPF) Urine WBC 30-100/hpf H (0-5/HPF) Urine Bacteria Many (>30) H (None) Ur Culture Indicated? Specimen cultured 01/07/22 01/07/22 Range/Units 17:10 17:10 WBC (4.5-11.0) X10^3/uL RBC (4.5-5.9) X10^6/uL Hgb (13.5-17.5) g/dL Hct (41-53) % MCV (80-100) fL MCH (26-34) PG MCHC (30-36) % RDW (11.6-14.8) % Plt Count (150-400) X10^3/uL Total Counted Seg Neutrophils % (38-70) % Band Neutrophils % (3-7) % Lymphocytes % (Manual) (25-45) % Monocytes % (Manual) (2-11) % Neutrophils # (Manual) (2877-1773) /uL RBC Morphology PT (10.1-12.7) SECONDS INR (0.9-1.3) Sodium 133 L (137-145) mmol/L Potassium 3.6 (3.4-5.1) mmol/L Chloride 94 L (98-107) mmol/L Carbon Dioxide 30 (22-32) mmol/L BUN 19 (9-20) mg/dL Creatinine 0.72 (0.66-1.25) mg/dL Estimated GFR > 60 (>60) mL/min BUN/Creatinine Ratio 26.4 H (6-22) Glucose 132 H (80-110) mg/dL Lactate 1.3 (0.7-2.1) mmol/L Calcium 9.3 (8.4-10.2) mg/dL Total Bilirubin 1.1 (0.2-1.3) mg/dL AST 30 (17-59) IU/L ALT 26 (<50) IU/L Alkaline Phosphatase 106 (38-126) U/L Total Protein 8.0 (6.3-8.2) g/dL Albumin 4.3 (3.5-5.0) g/dL Globulin 3.7 (1.7-4.1) g/dL Albumin/Globulin Ratio 1.2 (1.0-2.8) Urine Color Urine Appearance Urine pH (4.5-8.0) Ur Specific Sterling (1.000-1.035) Urine Protein (Negative) Urine Glucose (UA) (Negative) g/dL Urine Ketones (NEGATIVE) Urine Occult Blood (Negative) Urine Nitrate (Negative) Urine Bilirubin (NEGATIVE) Ur Bilirubin Confirm (Negative) Urine Urobilinogen (0.2) E.U./dL Ur Leukocyte Esterase (NEGATIVE) Urine RBC (0-5/HPF) Urine WBC (0-5/HPF) Urine Bacteria (None) Ur Culture Indicated? Imaging Data CT scan - abdomen/pelvis: Radiologist's Impression: 1. No renal stones or hydronephrosis.? No hydroureter. 2. Diffuse bladder wall thickening, no discrete bladder wall mass.? No calcified bladder stones.? Enlarged prostate gland with mass effect on floor of urinary bladder.? Finding may represent chronic outlet obstruction. 3. No bowel obstruction or abnormal bowel wall thickening.? Mild constipation.? No free fluid or free air. 4. Infrarenal abdominal aortic aneurysm measures up to 3.3 cm in largest AP diameter.? Moderate atherosclerotic disease. Discharge Plan Departure Patient Disposition: Home Clinical Impression: Acute prostatitis Instructions: Prostatitis Activity Restrictions/Additional Instructions: Cipro 2 times daily as prescribed. Drink plenty of fluids at all times Arrange follow-up with Urology in about 3 weeks. Return here if you increasing discomfort, fever, or inability to urinate. Prescriptions: New ciprofloxacin HCl [Cipro] 250 mg tablet 250 mg PO BID Qty: 42 0RF No Action Spiriva Respimat 2.5 mcg/actuation mist See Rx Instructions .ROUTE .COMPLEX Qty: 12 3RF Dose Instruction: inhale 1 puff by mouth once daily Rx Instructions: inhale 1 puff by mouth once daily potassium chloride 10 mEq tablet extended release 10 meq PO BID Qty: 60 3RF pravastatin 10 mg tablet 10 mg PO DAILY Qty: 90 3RF montelukast 10 mg tablet 10 mg PO QPM Qty: 30 3RF metformin 500 mg tablet See Rx Instructions .ROUTE .COMPLEX Qty: 180 0RF Dose Instruction: take 1 tablet by mouth twice a day with food Rx Instructions: take 1 tablet by mouth twice a day with food triamterene-hydrochlorothiazid 37.5-25 mg tablet See Rx Instructions .ROUTE .COMPLEX Qty: 90 0RF Dose Instruction: take 1 tablet by mouth once daily Rx Instructions: take 1 tablet by mouth once daily alprazolam 0.5 mg tablet See Rx Instructions .ROUTE .COMPLEX Qty: 60 0RF Dose Instruction: take 1 tablet by mouth twice a day if needed for anxiety Rx Instructions: take 1 tablet by mouth twice a day if needed for anxiety aspirin 81 mg tablet,delayed release (DR/EC) 81 mg PO DAILY albuterol sulfate [Ventolin HFA] 90 mcg/actuation HFA aerosol inhaler 1 puff INHALATION Q6H PRN potassium 10 mEq PO PRN B-complex with vitamin C [Super B Complex-Vitamin C] Tablet 1 tab PO DAILY Referrals: Fidel Edward MD [Primary Care Provider] -
--- NOTE | 2022-01-07 16:40 | DI.CT.S_ITS ---
PROCEDURE: CT KIDNEY URETER BLADDER (KUB) INDICATIONS: hematuria TECHNIQUE: Axial sections were acquired from the lung bases to the pubic symphysis. Coronal and sagittal reformats were performed. For radiation dose reduction, the following was used: automated exposure control, adjustment of mA and/or kV according to patient size. COMPARISON: [facility], CT, CT KIDNEY URETER BLADDER (KUB), 05/03/2020, 13:39. FINDINGS: Image quality: Excellent. Lung bases: Scattered scarring/atelectasis at bilateral lung bases are seen. Nodular density in lateral right lung base measures 6 mm in size is again seen unchanged from prior study series 3, image 21. Heart: Small hiatal hernia is seen. Heart size is normal, no pericardial effusion. [id number] atherosclerotic disease is noted. URINARY: Right Kidney: No stones or hydronephrosis. Right Ureter: No hydroureter. Left Kidney: No stones or hydronephrosis. Simple appearing cyst in posterior cortex of midpole left kidney is again seen and unchanged, and measures 3.7 x 2.4 cm in size. Left Ureter: No hydroureter. Bladder: Diffuse bladder wall thickening is noted, no discrete bladder wall mass.. No stones. ABDOMEN: Liver: Unremarkable. Gallbladder: Gallbladder is contracted and shows no gross abnormality. Biliary ducts: Unremarkable. Pancreas: Fatty atrophy of pancreas is seen, no discrete pancreatic lesion. Spleen: Unremarkable. Adrenal Glands: Unremarkable. Stomach and Bowel: Stomach, small bowel loops, and colon are unremarkable. Fecal stasis throughout the colon is seen. Peritoneum: No abnormal intraperitoneal fluid. No free air. Ventral Wall: No hernia. Abdominal Nodes: No enlarged retroperitoneal or mesenteric lymph nodes. Vessels: Fusiform infrarenal abdominal aortic aneurysm is seen measures up to 3.3 cm in largest AP diameter not significantly changed from prior study. Moderate atherosclerotic disease is again seen and unchanged. IVC is normal in size. PELVIS: Pelvic Organs: Enlarged prostate gland with mass effect on floor of urinary bladder is noted.. Pelvic Nodes: Unremarkable. Miscellaneous: No inguinal hernias are seen. Bones: No acute vertebral body compression fracture. Moderate degenerative disc disease throughout lower thoracic and lumbar spine is seen. No gross suspicious bony lesions. IMPRESSION: 1. No renal stones or hydronephrosis. No hydroureter. 2. Diffuse bladder wall thickening, no discrete bladder wall mass. No calcified bladder stones. Enlarged prostate gland with mass effect on floor of urinary bladder. Finding may represent chronic outlet obstruction. 3. No bowel obstruction or abnormal bowel wall thickening. Mild constipation. No free fluid or free air. 4. Infrarenal abdominal aortic aneurysm measures up to 3.3 cm in largest AP diameter. Moderate atherosclerotic disease. Dictated by: Dawson Escoto M.D. on 01/07/2022 at 17:07 Approved by: Dawson Escoto M.D. on 01/07/2022 at 17:12
[2022-01-07] MEDS: levoFLOXacin 500 MG/100 ML PIGGYBACK 100 MG IV (16:57)
[2022-01-07] MEDS: SODIUM CHLORIDE 0.9% 1,000 ML 150 ML IV (16:58)
[2022-01-07 17:25] LABS: Hematocrit 42.8 % (41-53); Hemoglobin 14.9 g/dL (13.5-17.5); Mean Corpuscular HGB Conc 34.7 % (30-36); Mean Corpuscular Hemoglobin 31.7 PG (26-34); Mean Corpuscular Volume 91.4 fL (80-100); Platelet Count 197 X10^3/uL (150-400); Red Blood Cell Count 4.69 X10^6/uL (4.5-5.9); Red Cell Distribution Width 13.2 % (11.6-14.8); White Blood Cell Count 15.5 X10^3/uL (4.5-11.0)
[2022-01-07 17:47] LABS: INR 1.1 (0.9-1.3)
[2022-01-07 17:53] LABS: Neutrophils Absolute Manual 11780 /uL (3000-5900); RBC Morphology Normal Morphology; Total Cells Counted 100
[2022-01-07 17:54] LABS: Lactate (Lactic Acid) 1.3 mmol/L (0.7-2.1)
[2022-01-07 17:55] LABS: Alanine Aminotransferase 26 IU/L (<50); Albumin 4.3 g/dL (3.5-5.0); Albumin Globulin Ratio 1.2 (1.0-2.8); Alkaline Phosphatase 106 U/L (38-126); Aspartate Aminotransferase 30 IU/L (17-59); BUN Creatinine Ratio 26.4 (6-22); Bilirubin Total 1.1 mg/dL (0.2-1.3); Blood Urea Nitrogen 19 mg/dL (9-20); Calcium 9.3 mg/dL (8.4-10.2); Carbon Dioxide 30 mmol/L (22-32); Chloride 94 mmol/L (98-107); Estimated Glomerular Filt Rate > 60 mL/min (>60); Globulin 3.7 g/dL (1.7-4.1); Glucose 132 mg/dL (80-110); HEMOLYSIS 18 (0-50); Potassium 3.6 mmol/L (3.4-5.1); Sodium 133 mmol/L (137-145)
== END 2022-01-07 18:49 | disposition home or self-care (01) ==
PROVIDERS: Emergency Provider Emergency Medicine; PCP Family Medicine
DX: N41.0 Acute prostatitis (principal); R10.30 Lower abdominal pain, unspecified
CPT/HCPCS: 36415; 74176; 80053; 81001; 83605; 85025; 85610; 87077; 87086; 87186; 99284; J1956

== ENCOUNTER 2022-01-09 15:02 | Inpatient (IN) | payer MEDICARE, BC, SELFPAY ==
[2022-01-09] VITALS (18 sets, daily range): BP systolic 103–121; BP diastolic 55–65; PULSE 71–105; RESP 18–29; TEMP 36.3–38.9; O2SAT 95–99; BMI 23.7; BMI 24.7
--- NOTE | 2022-01-09 15:23 | DI.RAD.S_ITS ---
PROCEDURE: XR CHEST 1V INDICATIONS: suspected sepsis TECHNIQUE: One view of the chest was acquired. COMPARISON: [facility], CR, XR CHEST 1V, 05/03/2020, 12:33. [facility], CR, XR CHEST 1V, 03/29/2020, 13:48. FINDINGS: Surgical changes and devices: None. Lungs and pleura: Lungs are clear. No pleural effusions or pneumothorax. Mediastinum: Mediastinal contours appear normal. Heart size is normal. Bones and chest wall: No suspicious bony lesions. Overlying soft tissues appear unremarkable. IMPRESSION: Minimal interstitial prominence, previously present. No focal pneumonia found. Dictated by: Leandro Martinez M.D. on 01/09/2022 at 16:22 Approved by: Leandro Martinez M.D. on 01/09/2022 at 16:22
--- NOTE | 2022-01-09 15:28 | ED_ITS ---
HPI - Sepsis General Chief Complaint: Weakness Mode of arrival: Wheelchair Source: patient Limitations: no limitations Evaluation Sepsis Screen: Possible Sepsis Risk Sepsis Infection Criteria Present: Documented Infection Narrative: Patient is a 81-year-old male history of coronary artery disease, peripheral neuropathy from diabetes, chronic neck and back pain is here on January 07 diagnosed with prostatitis sent home on ciprofloxacin returns today with increasing weakness and fever. Urine culture did grow Klebsiella sensitive to Levaquin he did take his dose this morning but is febrile at 102F. reports extreme weakness which is significantly abnormal he continues to have frequent urination also abnormal. Denies any chest pain or shortness of breath. He does have a history of COPD he is not on oxygen, noted to have fluctuating O2 of 90% to 96% on room air. He denies orthopnea peripheral edema or cough. He had abdominal CT and UTI like symptoms on January 07 as well. Review of Systems Review of Systems Narrative: GENERAL: See HPI HEENT: Denies sinus pain, ear pain, sore throat, difficulty swallowing, neck pain RESPIRATORY: Denies dyspnea, cough, wheezing, hemoptysis, sputum. CARDIOVASCULAR: Denies chest pain, palpitations, orthopnea, edema GASTROINTESTINAL: Denies nausea, vomiting, abdominal pain, diarrhea, constipation, melena. : See HPI MUSCULOSKELETAL: Denies weakness, joint pain, or bony pain SKIN: No rash, no erythema, no pruritus NEUROLOGIC: Denies weakness, dizziness, headache, numbness, change in speech, confusion PSYCHIATRIC: No concerning psychosocial issues. 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 Social History household members: spouse Smoking Status: Former smoker alcohol intake: current Smoking Status: Former smoker alcohol intake frequency: 3 or more drinks per day Alcohol type: wine Substance Use Type: does not use Exam Initial Vital Signs Initial Vital Signs: Vital Signs Temperature 102.1 F H 01/09/22 15:09 Pulse Rate 105 H 01/09/22 15:09 Respiratory Rate 22 01/09/22 15:09 Blood Pressure 121/57 L 01/09/22 15:09 Pulse Oximetry 96 01/09/22 15:09 Oxygen Delivery Method 01/09/22 15:09 GENERAL: Alert weak appearing 81-year-old male HEENT: Head atraumatic,EOMI, pupils reactive, face symmetric, moist mucous membranes CARDIOVASCULAR: Regular rate and rhythm without murmurs, rubs or gallops. RESPIRATORY: Breath sounds equal bilaterally, no wheezes rales or rhonchi. ABDOMEN: Soft, nontender. Normoactive bowel sounds all 4 quadrants. No guarding or rebound. : No CVA tenderness EXTREMITIES: Normal range of motion, no clubbing or edema. Neurovascularly inta ct NEUROLOGICAL: Alert and oriented x4. Diffuse weakness moving all extremities SKIN: Warm, dry, no laceration, no petechiae, no rashes or lesions. Course Orders Ordered: ED Orders 01/10/22 07:40 Complete Blood Count AUTO DIFF DAILY Comprehensive Metabolic Panel DAILY Magnesium DAILY 01/11/22 05:00 Complete Blood Count AUTO DIFF DAILY Comprehensive Metabolic Panel DAILY Magnesium DAILY 01/12/22 05:00 Complete Blood Count AUTO DIFF DAILY Comprehensive Metabolic Panel DAILY Magnesium DAILY Acetaminophen (Acetaminophen 325 Mg Tablet) 650 mg PO Q6H PRN PRN Reason: Fever/Mild Pain (1-3) Last Admin: 01/10/22 06:04 Dose: 650 mg Documented By: Admin: 01/09/22 21:52 Dose: 650 mg Documented By: TERE Alprazolam (Alprazolam 0.5 Mg Tablet) 0.5 mg PO BEDTIME [facility] Last Admin: 01/09/22 22:06 Dose: 0.5 mg Documented By: TERE Aspirin (Aspirin Ec 81 Mg Tablet) 81 mg PO DAILY [facility] Dextrose (Dextrose 50 % In Water 25 Gm/50 Ml Syringe) 25 gm IV PRN PRN PRN Reason: Hypoglycemia Enoxaparin Sodium (Enoxaparin 40 Mg/0.4 Ml Syringe) 40 mg SUBCUT DAILY [facility] Ceftriaxone Sodium 2,000 mg/ (Sodium Chloride) 100 mls @ 200 mls/hr IV Q24H [facility] Stop: 01/16/22 14:59 Insulin Human Lispro (Insulin Lispro 100 Unit/Ml 3ml Vial) 0 unit SUBCUT ACHS [facility]; Protocol Montelukast Sodium (Montelukast 10 Mg Tablet) 10 mg PO QPM [facility] Naloxone HCl (Naloxone 0.4 Mg/Ml Vial) 0.2 mg IV Q2MIN PRN PRN Reason: Opiate Reversal Ondansetron HCl (Ondansetron 4 Mg Odt) 4 mg PO Q8HR PRN PRN Reason: Nausea And Vomiting Oxycodone HCl (Oxycodone Ir 5 Mg Tablet) 5 mg PO Q3H PRN PRN Reason: Pain, Moderate (4-6) Pravastatin Sodium (Pravastatin 20 Mg Tablet) 10 mg PO DAILY [facility] Tamsulosin HCl (Tamsulosin 0.4 Mg Capsule) 0.4 mg PO DAILY [facility] Triamterene/Hydrochlorothiazide (Triamterene/Hctz 37.5/25 Capsule) 1 cap PO DAILY [facility] Discontinued Medications Acetaminophen (Acetaminophen 325 Mg Tablet) 975 mg PO NOW ONE Stop: 01/09/22 15:31 Last Admin: 01/09/22 15:54 Dose: 975 mg Documented By: ELIZABETH Sodium Chloride (Normal Saline 0.9%) 1,000 mls @ 1,000 mls/hr IV BOLUS ONE Stop: 01/09/22 16:22 Last Infusion: 01/09/22 18:48 Dose: 0 mls/hr Documented By: Admin: 01/09/22 15:54 Dose: 1,000 mls/hr Documented By: ELIZABETH Ceftriaxone Sodium 2,000 mg/ (Sodium Chloride) 100 mls @ 200 mls/hr IV NOW ONE Stop: 01/09/22 15:58 Last Infusion: 01/09/22 18:49 Dose: 0 mls/hr Documented By: Admin: 01/09/22 16:30 Dose: 200 mls/hr Documented By: ELIZABETH Ibuprofen (Ibuprofen 400 Mg Tablet) 400 mg PO NOW ONE Stop: 01/10/22 00:24 Ketorolac Tromethamine (Ketorolac 30 Mg/Ml Vial) 15 mg IV NOW ONE Stop: 01/09/22 15:31 Last Admin: 01/09/22 15:55 Dose: 15 mg Documented By: ELIZABETH Vital Signs Vital signs: Vital Signs - 8 hr 01/09/22 15:09 01/09/22 15:37 01/09/22 16:00 Temperature 102.1 F H Pulse Rate 105 H 102 H Respiratory Rate 22 27 H Blood Pressure 121/57 L 121/56 L Pulse Oximetry 96 95 Oxygen Delivery Method Room Air Oxygen Flow Rate 01/09/22 16:00 01/09/22 17:16 01/09/22 17:16 Temperature 99.9 F H 99.9 F H Pulse Rate 101 H Respiratory Rate 26 H Blood Pressure Pulse Oximetry 97 Oxygen Delivery Method Oxygen Flow Rate 01/09/22 16:30 01/09/22 16:30 01/09/22 17:10 Temperature Pulse Rate 93 H 88 Respiratory Rate 25 H 22 Blood Pressure 117/59 L Pulse Oximetry 97 98 Oxygen Delivery Method Room Air Oxygen Flow Rate 1 01/09/22 17:13 01/09/22 17:13 Temperature Pulse Rate 84 Respiratory Rate 23 Blood Pressure 114/61 Pulse Oximetry 98 Oxygen Delivery Method Oxygen Flow Rate Sepsis Evaluation (ED) Triage Screening Sepsis Screen: Possible Sepsis Risk Level 1 - Infection Sepsis Infection Criteria Present: Documented Infection Response It is my opinion that his patient have a likely infectious etiology for meeting sepsis criteria: Does Fluid calculation based on 30 mL/kg within 1hr of criteria: ABW used Antibiotics initiated within 1 hr of Sepis dx: Yes Tissue Perfusion Reassessed within 6 hrs of infusion start time: Yes Date of Tissue Perfusion Reassessment completed: 01/09/22 Time Tissue Perfusion Reassessment completed: 18:00 MDM - Sepsis Lab Data Result diagrams: 01/10/22 07:40 01/09/22 15:34 Labs: Lab Results 01/09/22 01/09/22 01/09/22 Range/Units 15:34 15:34 15:34 WBC 10.8 (4.5-11.0) X10^3/uL RBC 4.20 L (4.5-5.9) X10^6/uL Hgb 13.5 (13.5-17.5) g/dL Hct 37.9 L (41-53) % MCV 90.2 (80-100) fL MCH 32.2 (26-34) PG MCHC 35.7 (30-36) % RDW 13.0 (11.6-14.8) % Plt Count 198 (150-400) X10^3/uL Neut % (Auto) 82.0 H (50-75) % Lymph % (Auto) 6.5 L (25-40) % [place] % (Auto) 11.2 (3-14) % Eos % (Auto) 0.0 L (2-4) % Baso % (Auto) 0.3 (0-2) % Neut # (Auto) 8900 H (3647-7112) /uL Lymph # (Auto) 700 L (4463-3834) /uL [place] # (Auto) 1200 H (0-900) /uL Eos # (Auto) 0 (0-450) /uL Baso # (Auto) 0 (0-100) /uL D-Dimer (<500) ng/ml Sodium 127 L (137-145) mmol/L Potassium 3.7 (3.4-5.1) mmol/L Chloride 91 L (98-107) mmol/L Carbon Dioxide 27 (22-32) mmol/L BUN 14 (9-20) mg/dL Creatinine 0.67 (0.66-1.25) mg/dL Estimated GFR > 60 (>60) mL/min BUN/Creatinine Ratio 20.9 (6-22) Glucose 132 H (80-110) mg/dL Hemoglobin A1c (4.0-6.0) % Lactate 1.4 (0.7-2.1) mmol/L Calcium 9.0 (8.4-10.2) mg/dL Total Bilirubin 1.4 H (0.2-1.3) mg/dL AST 37 (17-59) IU/L ALT 30 (<50) IU/L Alkaline Phosphatase 110 (38-126) U/L Total Creatine Kinase (55-170) U/L CK-MB (CK-2) CK-MB (CK-2) Rel Index Troponin I (0.01-0.034) ng/mL Total Protein 7.6 (6.3-8.2) g/dL Albumin 3.9 (3.5-5.0) g/dL Globulin 3.7 (1.7-4.1) g/dL Albumin/Globulin Ratio 1.1 (1.0-2.8) Lipase 41 (23-300) U/L Procalcitonin 0.20 (<0.5) ng/mL Urine Color Urine Appearance Urine pH (4.5-8.0) Ur Specific [place] (1.000-1.035) Urine Protein (Negative) Urine Glucose (UA) (Negative) g/dL Urine Ketones (NEGATIVE) Urine Occult Blood (Negative) Urine Nitrate (Negative) Urine Bilirubin (NEGATIVE) Urine Urobilinogen (0.2) E.U./dL Ur Leukocyte Esterase (NEGATIVE) Urine RBC (0-5/HPF) Urine WBC (0-5/HPF) Amorphous Sediment Urine Bacteria (None) Ur Culture Indicated? SARS-CoV-2 (PCR) (Negative) Influenza A (RT-PCR) (NEGATIVE) Influenza B (RT-PCR) (NEGATIVE) RSV (PCR) (Negative) 01/09/22 01/09/22 01/09/22 Range/Units 15:34 15:34 15:34 WBC (4.5-11.0) X10^3/uL RBC (4.5-5.9) X10^6/uL Hgb (13.5-17.5) g/dL Hct (41-53) % MCV (80-100) fL MCH (26-34) PG MCHC (30-36) % RDW (11.6-14.8) % Plt Count (150-400) X10^3/uL Neut % (Auto) (50-75) % Lymph % (Auto) (25-40) % [place] % (Auto) (3-14) % Eos % (Auto) (2-4) % Baso % (Auto) (0-2) % Neut # (Auto) (7805-2493) /uL Lymph # (Auto) (4542-4279) /uL [place] # (Auto) (0-900) /uL Eos # (Auto) (0-450) /uL Baso # (Auto) (0-100) /uL D-Dimer 1296 H (<500) ng/ml Sodium (137-145) mmol/L Potassium (3.4-5.1) mmol/L Chloride (98-107) mmol/L Carbon Dioxide (22-32) mmol/L BUN (9-20) mg/dL Creatinine (0.66-1.25) mg/dL Estimated GFR (>60) mL/min BUN/Creatinine Ratio (6-22) Glucose (80-110) mg/dL Hemoglobin A1c (4.0-6.0) % Lactate (0.7-2.1) mmol/L Calcium (8.4-10.2) mg/dL Total Bilirubin (0.2-1.3) mg/dL AST (17-59) IU/L ALT (<50) IU/L Alkaline Phosphatase (38-126) U/L Total Creatine Kinase 27 L (55-170) U/L CK-MB (CK-2) TNP CK-MB (CK-2) Rel Index TNP Troponin I < 0.012 (0.01-0.034) ng/mL Total Protein (6.3-8.2) g/dL Albumin (3.5-5.0) g/dL Globulin (1.7-4.1) g/dL Albumin/Globulin Ratio (1.0-2.8) Lipase (23-300) U/L Procalcitonin (<0.5) ng/mL Urine Color Yellow Urine Appearance Clear Urine pH 7.5 (4.5-8.0) Ur Specific [place] 1.015 (1.000-1.035) Urine Protein Negative (Negative) Urine Glucose (UA) Trace H (Negative) g/dL Urine Ketones Negative (NEGATIVE) Urine Occult Blood Trace-lysed (Negative) Urine Nitrate Negative (Negative) Urine Bilirubin Negative (NEGATIVE) Urine Urobilinogen 2.0 H (0.2) E.U./dL Ur Leukocyte Esterase Trace H (NEGATIVE) Urine RBC 0-1/hpf D (0-5/HPF) Urine WBC 5-10/hpf H (0-5/HPF) Amorphous Sediment 1+ Urine Bacteria Occasional (0-1) D (None) Ur Culture Indicated? Specimen cultured SARS-CoV-2 (PCR) (Negative) Influenza A (RT-PCR) (NEGATIVE) Influenza B (RT-PCR) (NEGATIVE) RSV (PCR) (Negative) 01/09/22 01/09/22 Range/Units 15:34 15:56 WBC (4.5-11.0) X10^3/uL RBC (4.5-5.9) X10^6/uL Hgb (13.5-17.5) g/dL Hct (41-53) % MCV (80-100) fL MCH (26-34) PG MCHC (30-36) % RDW (11.6-14.8) % Plt Count (150-400) X10^3/uL Neut % (Auto) (50-75) % Lymph % (Auto) (25-40) % [place] % (Auto) (3-14) % Eos % (Auto) (2-4) % Baso % (Auto) (0-2) % Neut # (Auto) (9819-6377) /uL Lymph # (Auto) (9450-1439) /uL [place] # (Auto) (0-900) /uL Eos # (Auto) (0-450) /uL Baso # (Auto) (0-100) /uL D-Dimer (<500) ng/ml Sodium (137-145) mmol/L Potassium (3.4-5.1) mmol/L Chloride (98-107) mmol/L Carbon Dioxide (22-32) mmol/L BUN (9-20) mg/dL Creatinine (0.66-1.25) mg/dL Estimated GFR (>60) mL/min BUN/Creatinine Ratio (6-22) Glucose (80-110) mg/dL Hemoglobin A1c 5.5 (4.0-6.0) % Lactate (0.7-2.1) mmol/L Calcium (8.4-10.2) mg/dL Total Bilirubin (0.2-1.3) mg/dL AST (17-59) IU/L ALT (<50) IU/L Alkaline Phosphatase (38-126) U/L Total Creatine Kinase (55-170) U/L CK-MB (CK-2) CK-MB (CK-2) Rel Index Troponin I (0.01-0.034) ng/mL Total Protein (6.3-8.2) g/dL Albumin (3.5-5.0) g/dL Globulin (1.7-4.1) g/dL Albumin/Globulin Ratio (1.0-2.8) Lipase (23-300) U/L Procalcitonin (<0.5) ng/mL Urine Color Urine Appearance Urine pH (4.5-8.0) Ur Specific [place] (1.000-1.035) Urine Protein (Negative) Urine Glucose (UA) (Negative) g/dL Urine Ketones (NEGATIVE) Urine Occult Blood (Negative) Urine Nitrate (Negative) Urine Bilirubin (NEGATIVE) Urine Urobilinogen (0.2) E.U./dL Ur Leukocyte Esterase (NEGATIVE) Urine RBC (0-5/HPF) Urine WBC (0-5/HPF) Amorphous Sediment Urine Bacteria (None) Ur Culture Indicated? SARS-CoV-2 (PCR) Negative (Negative) Influenza A (RT-PCR) Flu a negative (NEGATIVE) Influenza B (RT-PCR) Flu b negative (NEGATIVE) RSV (PCR) Negative (Negative) Imaging Data Chest x-ray: Radiologist's Impression: : Pamela Roberts MR#: [id number] : 1940 Acct:[id number] Age/Sex: 81 / M Date of Service: 01/09/22 Loc: ED Accession Number: [id number] ?? Procedure: XR chest 1V Ordering Provider: Yany Richardson D.O. PROCEDURE:? XR CHEST 1V ? INDICATIONS:? suspected sepsis ? TECHNIQUE:? One view of the chest was acquired.? ? COMPARISON:? [facility], CR, XR CHEST 1V, 05/03/2020, 12:33.? [facility], CR, XR CHEST 1V, 03/29/2020, 13:48. ? FINDINGS:? ? Surgical changes and devices:? None.? ? Lungs and pleura:? Lungs are clear.? No pleural effusions or pneumothorax.? ? Mediastinum:? Mediastinal contours appear normal.? Heart size is normal.? ? Bones and chest wall:? No suspicious bony lesions.? Overlying soft tissues appear unremarkable.? ? IMPRESSION:? Minimal interstitial prominence, previously present.? No focal pneumonia found. ? ? Dictated by: Leandro Martinez M.D. on 01/09/2022 at 16:22 ? ? CT scan - chest: Radiologist's Impression: Signed Patient: Pamela Roberts MR#: [id number] : 1940 Acct:[id number] Age/Sex: 81 / M Date of Service: 01/09/22 Loc: ED Accession Number: [id number] ?? Procedure: CT angio chest PE protocol Ordering Provider: Yany Richardson D.O. PROCEDURE:? CT ANGIO CHEST PE PROTOCOL ? INDICATIONS:? hypoxia +dimer ? TECHNIQUE:? After the administration of intravenous contrast, 2 mm thick sections acquired from the pulmonary apices to the posterior costophrenic angles.? 3-dimensional maximum intensity projection (MIP) coronal and sagittal reformats were then acquired through the thorax.? For radiation dose reduction, the following was used:? automated exposure control, adjustment of mA and/or kV according to patient size.? ? COMPARISON:? [facility], CT, CT CHEST WO CON, 05/16/2021, 13:40. ? FINDINGS:? Image quality:? Excellent.? ? Pulmonary arteries:? Pulmonary arteries are normal in size, and demonstrate no intraluminal filling defects to suggest central pulmonary embolism.? ? Lungs and pleura:? Mild areas of subpleural fibrosis can be seen.? Mild centrilobular emphysematous changes are seen.? No superimposed infiltrates are detected.? No pleural effusions or pneumothorax.? Central and peripheral airways are patent.? ? A stable 1 cm nodule is again seen involving the right lateral costophrenic angle, as on series 6, image 245. ? Mediastinum:? Heart size is normal, without pericardial effusion.? There is a mild amount of coronary artery calcification.? No mediastinal or hilar adenopathy.? Thoracic aorta is normal in caliber and enhancement.? Esophagus is normal in caliber.? There is a small to moderate hiatal hernia.? ? Bones and chest wall:? No suspicious bony lesions.? Ribs and thoracic spine appear intact throughout.? Age-appropriate bony degenerative changes are seen.? Accentuated thoracic kyphosis is seen. ? Thyroid gland demonstrates no significant abnormality.? No axillary or supraclavicular adenopathy.? ? Abdomen:? Visualized upper abdominal solid organs appear normal in the early arterial phase of enhancement.? IMPRESSION:? Negative for pulmonary embolism. ? Emphysematous changes and mild subpleural fibrosis seen. ? Stable 1 cm nodule involving the right lateral costophrenic angle. ? ? ? Incidental note is made of: Mild coronary artery calcification Small to moderate hiatal hernia ? Dictated by: Hoang Carr M.D. on 01/09/2022 at 16:41 ? ? US - abdomen: Radiologist's Impression: [place] [address] Ultrasound Report Signed Patient: Pamela Roberts MR#: [id number] : 1940 Acct:[id number] Age/Sex: 81 / M Date of Service: 01/09/22 [facility] Access[facility] Number: [id number] ?? Procedure: US renal complete Ordering Provider: Yany Richardson D.O. PROCEDURE:? US RENAL COMPLETE ? INDICATIONS:? Please evaluate for hydronephrosis. ? TECHNIQUE:? Real-time scanning was performed of the kidneys and bladder, with image documentation.? ? COMPARISON:? [facility], CT, CT ANGIO CHEST PE PROTOCOL, 01/09/2022, 16:57.? [facility], CT, CT KIDNEY URETER BLADDER (KUB), 01/07/2022, 16:43. ? FINDINGS:? ? Kidneys:? Kidneys are normal in size.? Right kidney measures 11.6 cm long; left kidney measures 10.4 cm long.? Right renal cortical thickness is 1.2 cm; left renal cortical thickness is 1.2 cm.? Renal cortical echotexture is normal.? No hydronephrosis or nephrolithiasis.? No suspicious solid mass lesions.? ? Multiple left renal cysts are seen including a 1.7 cm cyst superiorly and a 2.9 cm cyst inferiorly. ? Bladder:? Pre-void bladder volume is 612 mL.? Post-void residual is 432 mL.? Pre-void images demonstrate no intraluminal masses or stones.? On pre-void images, only the right ureteral jet can be seen with color Doppler interrogation.? (Of note, ureteral jets may not be detectable in up to 25% of cases due to insufficient differences in specific gravity between ureteral and bladder urine).? ? Miscellaneous:? No free pelvic fluid.? IMPRESSION:? Negative for hydronephrosis on either side. ? Significant postvoid residual, 432 cc. ? Simple appearing left renal cysts are seen. ? Only the right ureteral jet can be seen. ? ? Dictated by: Hoang Carr M.D. on 01/09/2022 at 18:18 ? ? ECG Data Interpretation: Sinus tachycardia rate 103 CO interval 146 QRS [address] changes or T- wave inversions similar to previous EKG in fact improved MDM Narrative Medical decision making narrative: Patient is failing outpatient treatment of UTI. It is quite sensitive to fluoroquinolones however he still having fever in symptoms. He is given a dose of Rocephin here in the ED. He is febrile at 102 He really has no abdominal pain. He is noted to be mildly hypoxic which is intermittent at 90%. He denies any cough or shortness of breath. His D-dimer is elevated at [address] does not show any pneumonia or pulmonary embolism. His blood pressure and heart rate are overall stable. Does not require sepsis fluids, he is not hypotensive his lactic acid is not significantly high or elevated and does not meet severe sepsis criteria. He certainly has SIRS and infection. Must pick sepsis fluids were given due to glitchin EMR, but they were not. He was given IV fluids and antibiotics and his fever was treated. Dr. Caldera accept patient but requested old renal ultrasound prior to admission rule out hydronephrosis. If hydronephrosis will need to contact Urology Signed out to Dr. Oro Discharge Plan Departure Patient Disposition: Admitted As Inpatient Clinical Impression: Acute prostatitis Admit Date/Time: 01/09/22 19:17 Admit Provider: Enzo Caldera
[2022-01-09 15:45] LABS: Add Manual Diff / Slide Review NO; Basophils Absolute Auto 0 /uL (0-100); Basophils Percent Auto 0.3 % (0-2); Eosinophils Absolute Auto 0 /uL (0-450); Hematocrit 37.9 % (41-53); Hemoglobin 13.5 g/dL (13.5-17.5); Lymphocytes Absolute Auto 700 /uL (1100-4500); Lymphocytes Percent Auto 6.5 % (25-40); Mean Corpuscular HGB Conc 35.7 % (30-36); Mean Corpuscular Hemoglobin 32.2 PG (26-34); Mean Corpuscular Volume 90.2 fL (80-100); Monocytes Absolute Auto 1200 /uL (0-900); Monocytes Percent Auto 11.2 % (3-14); Neutrophils Absolute Auto 8900 /uL (1500-7000); Platelet Count 198 X10^3/uL (150-400); White Blood Cell Count 10.8 X10^3/uL (4.5-11.0)
[2022-01-09 15:46] LABS: Appearance Urine UA CLEAR; Bilirubin Urine UA NEGATIVE (NEGATIVE); Color Urine UA YELLOW; Glucose Urine UA TRACE g/dL (Negative); Ketones Urine UA NEGATIVE (NEGATIVE); Leukocyte Esterase Urine UA TRACE (NEGATIVE); Nitrite Urine UA NEGATIVE (Negative); Occult Blood Urine UA TRACE-LYSED (Negative); Protein Urine UA NEGATIVE (Negative); Specific Gravity Urine UA 1.015 (1.000-1.035); pH Urine UA 7.5 (4.5-8.0)
[2022-01-09 15:52] LABS: Amorphous Sediment Urine 1+; Bacteria Urine Occasional (0-1); Culture Indicated Urine Specimen Cultured; RBC Urine 0-1/HPF (0-5/HPF); WBC Urine 5-10/HPF (0-5/HPF)
[2022-01-09] MEDS: SODIUM CHLORIDE 0.9% 1,000 ML 1000 ML IV (15:54)
[2022-01-09] MEDS: ACETAMINOPHEN 325 MG TABLET 975 MG PO (15:54)
[2022-01-09] MEDS: KETOROLAC 30 MG/ML VIAL 15 MG IV (15:55)
[2022-01-09 15:56] LABS: Lactate (Lactic Acid) 1.4 mmol/L (0.7-2.1)
[2022-01-09 15:57] LABS: Alanine Aminotransferase 30 IU/L (<50); Albumin 3.9 g/dL (3.5-5.0); Albumin Globulin Ratio 1.1 (1.0-2.8); Alkaline Phosphatase 110 U/L (38-126); Aspartate Aminotransferase 37 IU/L (17-59); BUN Creatinine Ratio 20.9 (6-22); Bilirubin Total 1.4 mg/dL (0.2-1.3); Blood Urea Nitrogen 14 mg/dL (9-20); Carbon Dioxide 27 mmol/L (22-32); Chloride 91 mmol/L (98-107); Creatine Kinase 27 U/L (55-170); Estimated Glomerular Filt Rate > 60 mL/min (>60); Globulin 3.7 g/dL (1.7-4.1); Glucose 132 mg/dL (80-110); HEMOLYSIS < 15 (0-50); Lipase 41 U/L (23-300); Potassium 3.7 mmol/L (3.4-5.1); Sodium 127 mmol/L (137-145); Total Protein 7.6 g/dL (6.3-8.2)
[2022-01-09 16:09] LABS: D Dimer 1296 ng/ml (<500); Troponin I < 0.012 ng/mL (0.01-0.034)
[2022-01-09] MEDS: cefTRIAXone 2,000 MG in SODIUM CHLORIDE 0.9% 100 ML 200 MG IV (16:30)
--- NOTE | 2022-01-09 16:43 | DI.CT.S_ITS ---
PROCEDURE: CT ANGIO CHEST PE PROTOCOL INDICATIONS: hypoxia +dimer TECHNIQUE: After the administration of intravenous contrast, 2 mm thick sections acquired from the pulmonary apices to the posterior costophrenic angles. 3-dimensional maximum intensity projection (MIP) coronal and sagittal reformats were then acquired through the thorax. For radiation dose reduction, the following was used: automated exposure control, adjustment of mA and/or kV according to patient size. COMPARISON: [facility], CT, CT CHEST WO CON, 05/16/2021, 13:40. FINDINGS: Image quality: Excellent. Pulmonary arteries: Pulmonary arteries are normal in size, and demonstrate no intraluminal filling defects to suggest central pulmonary embolism. Lungs and pleura: Mild areas of subpleural fibrosis can be seen. Mild centrilobular emphysematous changes are seen. No superimposed infiltrates are detected. No pleural effusions or pneumothorax. Central and peripheral airways are patent. A stable 1 cm nodule is again seen involving the right lateral costophrenic angle, as on series 6, image 245. Mediastinum: Heart size is normal, without pericardial effusion. There is a mild amount of coronary artery calcification. No mediastinal or hilar adenopathy. Thoracic aorta is normal in caliber and enhancement. Esophagus is normal in caliber. There is a small to moderate hiatal hernia. Bones and chest wall: No suspicious bony lesions. Ribs and thoracic spine appear intact throughout. Age-appropriate bony degenerative changes are seen. Accentuated thoracic kyphosis is seen. Thyroid gland demonstrates no significant abnormality. No axillary or supraclavicular adenopathy. Abdomen: Visualized upper abdominal solid organs appear normal in the early arterial phase of enhancement. IMPRESSION: Negative for pulmonary embolism. Emphysematous changes and mild subpleural fibrosis seen. Stable 1 cm nodule involving the right lateral costophrenic angle. Incidental note is made of: Mild coronary artery calcification Small to moderate hiatal hernia Dictated by: Hoang Carr M.D. on 01/09/2022 at 16:41 Approved by: Hoang Carr M.D. on 01/09/2022 at 16:50
[2022-01-09 17:04] LABS: Influenza A - CEPHEID Flu A NEGATIVE (NEGATIVE); Influenza B - CEPHEID Flu B NEGATIVE (NEGATIVE); Respiratory Syncytial Virus Negative (Negative)
[2022-01-09 17:11] LABS: COVID-19 CEPHEID 4-PLEX PCR Negative (Negative)
--- NOTE | 2022-01-09 18:07 | DI.US.S_ITS ---
PROCEDURE: US RENAL COMPLETE INDICATIONS: Please evaluate for hydronephrosis. TECHNIQUE: Real-time scanning was performed of the kidneys and bladder, with image documentation. COMPARISON: [facility], CT, CT ANGIO CHEST PE PROTOCOL, 01/09/2022, 16:57. [facility], CT, CT KIDNEY URETER BLADDER (KUB), 01/07/2022, 16:43. FINDINGS: Kidneys: Kidneys are normal in size. Right kidney measures 11.6 cm long; left kidney measures 10.4 cm long. Right renal cortical thickness is 1.2 cm; left renal cortical thickness is 1.2 cm. Renal cortical echotexture is normal. No hydronephrosis or nephrolithiasis. No suspicious solid mass lesions. Multiple left renal cysts are seen including a 1.7 cm cyst superiorly and a 2.9 cm cyst inferiorly. Bladder: Pre-void bladder volume is 612 mL. Post-void residual is 432 mL. Pre-void images demonstrate no intraluminal masses or stones. On pre-void images, only the right ureteral jet can be seen with color Doppler interrogation. (Of note, ureteral jets may not be detectable in up to 25% of cases due to insufficient differences in specific gravity between ureteral and bladder urine). Miscellaneous: No free pelvic fluid. IMPRESSION: Negative for hydronephrosis on either side. Significant postvoid residual, 432 cc. Simple appearing left renal cysts are seen. Only the right ureteral jet can be seen. Dictated by: Hoang Carr M.D. on 01/09/2022 at 18:18 Approved by: Hoang Carr M.D. on 01/09/2022 at 18:20
--- NOTE | 2022-01-09 19:15 | PC.NURSE ---
Report received - assumed care of pt at this time - at bedside
--- NOTE | 2022-01-09 19:45 | PC.NURSE ---
tolerated procedure well - catheter passed easily without resistance or incident - at bedside Attempted to urinate prior to catheter placement - 150ml output noted - states that he is unable to pass anymore urine - states that it is difficulty
--- NOTE | 2022-01-09 20:12 | PC.NURSE ---
At bedside to place catheter - procedure discussed with pt and family - understanding verbalized and verbal ok given by patient Discussed the patient's mental status with his for admission - states that she is concerned that his mental status is not as clear as he normally is - states that the patient is weak and unsteady on his feet - states that the patient has stated that he is feeling weak as well - manager of housekeeping notified for placement closer to nurses station
--- NOTE | 2022-01-09 20:35 | PC.NURSE ---
Report called to floor RN - pt to be transported to room 207
--- NOTE | 2022-01-09 21:43 | P.HP_ITS ---
History of Present Illness History of Present Illness Date Patient Seen: 01/09/22 Time Patient Seen: 21:44 Chief complaint: Fever, Infection, Antibiotics not working Narrative: Mira Roberts is an 81 y.o. 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 He had been seen in the ED initially on January 07 with a complaint of hematuria diagnosed with prostatitis and cystitis, treated with Levaquin and prescribed oral Cipro on discharge. He apparently did not improve and ended up having a low-grade fever that increased from 90-101 and then 10 minutes later to 102.5. His decided to bring him in to be seen. He sees Aliyah Rosas PA-C at [facility] urology for BPH and urinary retention. Apparently has a history of elevated PSAs in the setting of UTI/sepsis. Patient was complaining of being cold in the room and shaking with rigors. He states that he normally sleeps with many blankets at baseline. He denies shortness of breath, chest pain, nausea or vomiting, diarrhea or constipation. Urine cultures that were drawn on 01/07 resulted today and indicates he is sensitive to ceftriaxone. In the emergency department he was started on IV ceftriaxone. T-max was 101.2?, he is temp is currently 98.7?, blood pressure 120/57, heart rate 71, respiratory rate 19, oxygen saturation of 97% on 2 L he weighs 85.7 kg with a BMI of 24/7. He does not have a white count but has a neutrophil count of 8900, D-dimer was mildly elevated at 12 96, sodium was 127 chloride 91 glucose 132 total bilirubin 1.4 UA has trace glucose with urine bilirubin, 5-10 urine wbc's and culture is pending. COVID-19 PCR is negative. 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 Social History: household members spouse Prior Living Arrangements House Safety & Behavioral: Feels Safe in Current Yes Environment Been Physically Hurt or No Threatened By a Person Tobacco & Substance use: Tobacco type cigarettes Smoking Status Former smoker alcohol intake current alcohol intake frequency 3 or more drinks per day Substance Use Type does not use Meds Home Medications and Allergies Home Medications Medication Instructions Recorded Confirmed Type albuterol sulfate 90 mcg/actuation 1 puff inhalation Q6H PRN 03/10/18 01/09/22 History aerosol inhaler (Ventolin HFA) Shortness Of Breath aspirin 81 mg tablet,delayed 81 mg PO DAILY 03/10/18 01/09/22 History release B-complex with vitamin C (Super B 1 tab PO DAILY 09/04/19 01/09/22 History Complex-Vitamin C tablet) tiotropium bromide 2.5 See Rx Instructions .Route 03/20/21 01/09/22 Rx mcg/actuation mist for inhalation .COMPLEX #12 grams (Spiriva Respimat) potassium chloride 10 mEq 10 meq PO BID #60 tabs 05/19/21 01/09/22 Rx tablet,extended release pravastatin 10 mg tablet 10 mg PO DAILY #90 tabs 06/26/21 01/09/22 Rx montelukast 10 mg tablet 10 mg PO QPM #30 tabs 09/10/21 01/09/22 Rx metformin 500 mg tablet See Rx Instructions .Route 09/18/21 01/09/22 Rx .COMPLEX #180 tabs triamterene 37.5 See Rx Instructions .Route 11/24/21 01/09/22 Rx mg-hydrochlorothiazide 25 mg tablet .COMPLEX #90 tabs alprazolam 0.5 mg tablet See Rx Instructions .Route 12/22/21 01/09/22 Rx .COMPLEX #60 tabs Allergies Allergy/AdvReac Type Severity Reaction Status Date / Time oxycodone AdvReac Intermediate lethargic Verified 01/07/22 11:38 and tired Review of Systems Review of Systems ROS: Yes All systems reviewed with the patient and are negative except as otherwise documented Exam Vital Signs (past 8 hours): - 01/09/22 15:09 01/09/22 15:37 01/09/22 16:00 Temperature 102.1 F H Pulse Rate 105 H 102 H Respiratory Rate 22 27 H Blood Pressure 121/57 L 121/56 L Pulse Oximetry 96 95 Oxygen Delivery Method Room Air Oxygen Flow Rate 01/09/22 16:00 01/09/22 17:16 01/09/22 17:16 Temperature 99.9 F H 99.9 F H Pulse Rate 101 H Respiratory Rate 26 H Blood Pressure Pulse Oximetry 97 Oxygen Delivery Method Oxygen Flow Rate 01/09/22 16:30 01/09/22 16:30 01/09/22 17:10 Temperature Pulse Rate 93 H 88 Respiratory Rate 25 H 22 Blood Pressure 117/59 L Pulse Oximetry 97 98 Oxygen Delivery Method Room Air Oxygen Flow Rate 1 01/09/22 17:13 01/09/22 17:13 01/09/22 17:30 Temperature Pulse Rate 84 Respiratory Rate 23 Blood Pressure 114/61 111/60 Pulse Oximetry 98 Oxygen Delivery Method Oxygen Flow Rate 01/09/22 17:30 01/09/22 18:00 01/09/22 18:00 Temperature Pulse Rate 85 84 Respiratory Rate 22 20 Blood Pressure 112/57 L Pulse Oximetry 96 96 Oxygen Delivery Method Oxygen Flow Rate 1 01/09/22 18:30 01/09/22 18:30 01/09/22 18:49 Temperature 99.2 F Pulse Rate 82 Respiratory Rate 29 H Blood Pressure 106/59 L Pulse Oximetry 98 Oxygen Delivery Method Nasal Cannula Oxygen Flow Rate 1 01/09/22 19:00 01/09/22 19:00 01/09/22 19:30 Temperature Pulse Rate 83 Respiratory Rate 19 Blood Pressure 114/65 103/64 Pulse Oximetry 97 Oxygen Delivery Method Oxygen Flow Rate 01/09/22 19:30 01/09/22 20:00 01/09/22 20:00 Temperature 98.2 F Pulse Rate 82 84 Respiratory Rate 18 23 Blood Pressure 110/57 L Pulse Oximetry 96 97 Oxygen Delivery Method Oxygen Flow Rate 01/09/22 20:30 01/09/22 20:30 01/09/22 21:03 Temperature Pulse Rate 84 Respiratory Rate 18 Blood Pressure 109/55 L Pulse Oximetry 99 97 Oxygen Delivery Method Nasal Cannula Oxygen Flow Rate 2 01/09/22 20:53 Temperature 97.3 F L Pulse Rate 71 Respiratory Rate 19 Blood Pressure 120/57 L Pulse Oximetry 97 Oxygen Delivery Method Oxygen Flow Rate 2 Oxygen Delivery Method Nasal Cannula Oxygen Flow Rate 2 Narrative Exam Narrative: Gen: Alert, oriented, well-developed 81 y.o. male, shaking with rigors HEENT: normocephalic, atraumatic, conjunctiva clear, sclera non-icteric, oral mucosa pink and moist Neck: supple, full ROM, no JVD, trachea is midline Resp: Lungs CTA, non-labored breathing CV: RRR, no murmur or rubs Abd: soft, non-tender, normoactive BTs Skin: no lesions or rashes, dry and intact Neuro: Alert and oriented X 4 w/no focal deficits. Speech clear and coherent. Extremities: moves all 4 extremities, is ambulatory, negative Hector's sign Psyche: normal mood and affect. Objective Labs Result Diagrams: 01/09/22 15:34 01/09/22 15:34 Labs: Laboratory Results - last 24 hr 01/09/22 01/09/22 01/09/22 15:34 15:34 15:34 WBC 10.8 RBC 4.20 L Hgb 13.5 Hct 37.9 L MCV 90.2 MCH 32.2 MCHC 35.7 RDW 13.0 Plt Count 198 Neut % (Auto) 82.0 H Lymph % (Auto) 6.5 L [place] % (Auto) 11.2 Eos % (Auto) 0.0 L Baso % (Auto) 0.3 Neut # (Auto) 8900 H Lymph # (Auto) 700 L [place] # (Auto) 1200 H Eos # (Auto) 0 Baso # (Auto) 0 D-Dimer Sodium 127 L Potassium 3.7 Chloride 91 L Carbon Dioxide 27 BUN 14 Creatinine 0.67 Estimated GFR > 60 BUN/Creatinine Ratio 20.9 Glucose 132 H Lactate 1.4 Calcium 9.0 Total Bilirubin 1.4 H AST 37 ALT 30 Alkaline Phosphatase 110 Total Creatine Kinase CK-MB (CK-2) CK-MB (CK-2) Rel Index Troponin I Total Protein 7.6 Albumin 3.9 Globulin 3.7 Albumin/Globulin Ratio 1.1 Lipase 41 Procalcitonin 0.20 Urine Color Urine Appearance Urine pH Ur Specific [place] Urine Protein Urine Glucose (UA) Urine Ketones Urine Occult Blood Urine Nitrate Urine Bilirubin Urine Urobilinogen Ur Leukocyte Esterase Urine RBC Urine WBC Amorphous Sediment Urine Bacteria Ur Culture Indicated? SARS-CoV-2 (PCR) Influenza A (RT-PCR) Influenza B (RT-PCR) RSV (PCR) 01/09/22 01/09/22 01/09/22 15:34 15:34 15:34 WBC RBC Hgb Hct MCV MCH MCHC RDW Plt Count Neut % (Auto) Lymph % (Auto) [place] % (Auto) Eos % (Auto) Baso % (Auto) Neut # (Auto) Lymph # (Auto) [place] # (Auto) Eos # (Auto) Baso # (Auto) D-Dimer 1296 H Sodium Potassium Chloride Carbon Dioxide BUN Creatinine Estimated GFR BUN/Creatinine Ratio Glucose Lactate Calcium Total Bilirubin AST ALT Alkaline Phosphatase Total Creatine Kinase 27 L CK-MB (CK-2) TNP CK-MB (CK-2) Rel Index TNP Troponin I < 0.012 Total Protein Albumin Globulin Albumin/Globulin Ratio Lipase Procalcitonin Urine Color Yellow Urine Appearance Clear Urine pH 7.5 Ur Specific [place] 1.015 Urine Protein Negative Urine Glucose (UA) Trace H Urine Ketones Negative Urine Occult Blood Trace-lysed Urine Nitrate Negative Urine Bilirubin Negative Urine Urobilinogen 2.0 H Ur Leukocyte Esterase Trace H Urine RBC 0-1/hpf D Urine WBC 5-10/hpf H Amorphous Sediment 1+ Urine Bacteria Occasional (0-1) D Ur Culture Indicated? Specimen cultured SARS-CoV-2 (PCR) Influenza A (RT-PCR) Influenza B (RT-PCR) RSV (PCR) 01/09/22 15:56 WBC RBC Hgb Hct MCV MCH MCHC RDW Plt Count Neut % (Auto) Lymph % (Auto) [place] % (Auto) Eos % (Auto) Baso % (Auto) Neut # (Auto) Lymph # (Auto) [place] # (Auto) Eos # (Auto) Baso # (Auto) D-Dimer Sodium Potassium Chloride Carbon Dioxide BUN Creatinine Estimated GFR BUN/Creatinine Ratio Glucose Lactate Calcium Total Bilirubin AST ALT Alkaline Phosphatase Total Creatine Kinase CK-MB (CK-2) CK-MB (CK-2) Rel Index Troponin I Total Protein Albumin Globulin Albumin/Globulin Ratio Lipase Procalcitonin Urine Color Urine Appearance Urine pH Ur Specific [place] Urine Protein Urine Glucose (UA) Urine Ketones Urine Occult Blood Urine Nitrate Urine Bilirubin Urine Urobilinogen Ur Leukocyte Esterase Urine RBC Urine WBC Amorphous Sediment Urine Bacteria Ur Culture Indicated? SARS-CoV-2 (PCR) Negative Influenza A (RT-PCR) Flu a negative Influenza B (RT-PCR) Flu b negative RSV (PCR) Negative Assessment & Plan Assessment & Plan narrative: Celine Roberts is admitted for further antibiotic treatment for a bacterial prostatitis, cystitis due to failed outpatient therapy. * bacterial prostatitis, cystitis, acute, present on admission * He was initiated on ceftriaxone 2 g and this will be continued daily * Consider referral to Urology locally, given frequent and persistent hematuria and infections * Continue tamsulosin 0.4 mg p.o. daily Fever, present on admission * He appears to have intermittent fevers, tylenol is q 6 hours and will receive prn ibuprofen 400 mg Diabetes type 2, very well controlled, present on admission * Diabetic carb controlled diet * ACHS glucose checks * Low-dose correctional insulin Essential hypertension, chronic * He takes triamterene/hydrochlorothiazide 37.5/25 and this will be continued or substituted per pharmacy * Continue ASA HLD, chronic * Continue home dose of pravastatin Astma, chronic * Continue Montelukast Insommnia, chronic * He takes alprazolam for sleep VTE Prophylaxis: Wells risk score 0 XEnoxaparin 40 mg subQ once daily Bilateral SCDs Patient is admitted to the inpatient service due to the severity of disease, risks of further disease progression and this stay is expected to exceed 2 midnights. FEN: IV fluids: saline lock, diet: carb controlled diet, labs: CBC, C/BMP, liver enzymes, Mag, PT/INR Consultants None Dispo: probable d/c to home Code status: Full code as discussed with the patient who identifies his , Cammy as his surrogate and POA. [X] I have utilized all available immediate resources to obtain, update, or review of the patient's current medications VTE Deep Vein Thrombosis/Pulmonary Embolism Present on Admission: No MIPS - Admit I confirm the patient?s Advance Care Plan is present, Code status is documented, Surrogate decision maker is in patient?s record: Yes MIPS - DC The patient has current or prior documentation of left ventricular ejection fraction (LVEF) less than 40%, or moderate or severely depressed left ventricular systolic function.: No COVID-19 COVID-19 status: Negative Result date/Date tested (Pos, Neg/Pending): 01/09/22 Quality VTE Deep Vein Thrombosis/Pulmonary Embolism Present on Admission: No
[2022-01-09] MEDS: ACETAMINOPHEN 325 MG TABLET 650 MG PO (21:52)
[2022-01-09 22:01] LABS: Hemoglobin A1C% w Est Avg Glu 5.5 % (4.0-6.0)
[2022-01-09] MEDS: ALPRAZolam 0.5 MG TABLET PO (22:06)
[2022-01-10] VITALS (15 sets, daily range): BP systolic 87–149; BP diastolic 44–66; PULSE 67–96; RESP 14–19; TEMP 35.8–38.1; O2SAT 92–100
--- NOTE | 2022-01-10 02:25 | PC.NURSE ---
Admit/NOC Shift Note- Patient arrived to room via stretcher from ER at 2009. Patient alert and oriented and able to make needs known to staff. Admit questions done, medications reviewed, physical assessment done, and skin check completed. Patient and spouse oriented to bed and bed controls, room, bathroom, lights, phone, menu, and call nieto/tv remote. Made window seat into bed for spouse. Patient agrees to call for assistance. Safety measures in place. Call nieto and phone within reach. will continue to monitor.
[2022-01-10] MEDS: ACETAMINOPHEN 325 MG TABLET 650 MG PO ×2 (06:04→15:54)
[2022-01-10 07:52] LABS: Hematocrit 36.6 % (41-53); Hemoglobin 12.8 g/dL (13.5-17.5); Mean Corpuscular Hemoglobin 31.9 PG (26-34); Mean Corpuscular Volume 91.2 fL (80-100); Platelet Count 203 X10^3/uL (150-400); Red Blood Cell Count 4.01 X10^6/uL (4.5-5.9); Red Cell Distribution Width 12.8 % (11.6-14.8); White Blood Cell Count 13.6 X10^3/uL (4.5-11.0)
[2022-01-10 07:53] LABS: Add Manual Diff / Slide Review YES
[2022-01-10 08:01] LABS: Alanine Aminotransferase 33 IU/L (<50); Albumin 3.4 g/dL (3.5-5.0); Alkaline Phosphatase 92 U/L (38-126); Aspartate Aminotransferase 32 IU/L (17-59); BUN Creatinine Ratio 23.3 (6-22); Bilirubin Total 0.8 mg/dL (0.2-1.3); Blood Urea Nitrogen 14 mg/dL (9-20); Calcium 8.6 mg/dL (8.4-10.2); Carbon Dioxide 27 mmol/L (22-32); Chloride 96 mmol/L (98-107); Estimated Glomerular Filt Rate > 60 mL/min (>60); Globulin 3.3 g/dL (1.7-4.1); Glucose 116 mg/dL (80-110); HEMOLYSIS < 15 (0-50); Magnesium 1.8 mg/dL (1.6-2.3); Potassium 3.5 mmol/L (3.4-5.1); Sodium 133 mmol/L (137-145); Total Protein 6.7 g/dL (6.3-8.2)
[2022-01-10 08:16] LABS: Anisocytosis 1+; Neutrophils Absolute Manual 11696 /uL (3000-5900); Total Cells Counted 100
[2022-01-10] MEDS: TRIAMTERENE/HCTZ 37.5/25 CAPSULE 1 CAP PO (08:32)
[2022-01-10] MEDS: TAMSULOSIN 0.4 MG CAPSULE PO (08:33)
[2022-01-10] MEDS: ENOXAPARIN 40 MG/0.4 ML SYRINGE SUBCUT (08:33)
[2022-01-10] MEDS: ASPIRIN EC 81 MG TABLET PO (08:33)
[2022-01-10] MEDS: PRAVASTATIN 20 MG TABLET 10 MG PO (08:34)
[2022-01-10] MEDS: ALBUTEROL 2.5 MG/3 ML NEB (ADULT) INH (09:14)
[2022-01-10] MEDS: IPRATROPIUM 0.5 MG/2.5 ML NEB INH ×3 (09:14→19:04)
[2022-01-10] MEDS: POTASSIUM CHLORIDE 20 MEQ TAB 40 MEQ PO (11:20)
[2022-01-10] MEDS: INSULIN LISPRO 100 UNIT/ML 3ML VIAL SUBCUT ×2 (11:44→16:57)
[2022-01-10] MEDS: IBUPROFEN 400 MG TABLET PO (11:45)
--- NOTE | 2022-01-10 12:08 | P.PN_ITS ---
Subjective Subjective Date Patient Seen: 01/10/22 Interval history: Still remains very fatigued today. No complaints of pain, shortness of breath, nausea, chest pain. Tmax 102.6 on admission, low grade to 100.6 overnight. Exam Vital Signs (past 8 hours): - 01/10/22 05:00 01/10/22 06:23 01/10/22 09:14 Temperature 97.8 F Pulse Rate 67 85 Respiratory Rate 18 16 Blood Pressure 149/66 H Pulse Oximetry 96 98 92 Oxygen Delivery Method Room Air Room Air Oxygen Flow Rate 0 2 01/10/22 10:18 01/10/22 11:05 Temperature 98.1 F Pulse Rate 83 Respiratory Rate 16 Blood Pressure 104/59 L Pulse Oximetry 96 Oxygen Delivery Method Nasal Cannula CPAP Oxygen Flow Rate Oxygen Delivery Method Nasal Cannula,CPAP Oxygen Flow Rate 2 Narrative Exam Narrative: Gen: well-developed 81 y.o. male no acute distress, mildly ill appearing. HEENT: normocephalic, atraumatic, conjunctiva clear, sclera non-icteric, oral mucosa pink and moist Neck: supple, full ROM, no JVD, trachea is midline Resp: Lungs CTA, non-labored breathing CV: RRR, no murmur or rubs Abd: soft, non-tender, normoactive BTs Skin: no lesions or rashes, dry and intact Neuro: Alert and oriented X 4 w/no focal deficits. Speech clear and coherent. Extremities: no edema or joint effusions. Psyche: normal mood and affect. Objective Labs Result Diagrams: 01/10/22 07:40 01/10/22 07:40 Labs: Laboratory Results - last 24 hr 01/09/22 01/09/22 01/09/22 15:34 15:34 15:34 WBC 10.8 RBC 4.20 L Hgb 13.5 Hct 37.9 L MCV 90.2 MCH 32.2 MCHC 35.7 RDW 13.0 Plt Count 198 Neut % (Auto) 82.0 H Lymph % (Auto) 6.5 L [place] % (Auto) 11.2 Eos % (Auto) 0.0 L Baso % (Auto) 0.3 Neut # (Auto) 8900 H Lymph # (Auto) 700 L [place] # (Auto) 1200 H Eos # (Auto) 0 Baso # (Auto) 0 Total Counted Seg Neutrophils % Band Neutrophils % Lymphocytes % (Manual) Monocytes % (Manual) Neutrophils # (Manual) RBC Morphology Anisocytosis D-Dimer Sodium 127 L Potassium 3.7 Chloride 91 L Carbon Dioxide 27 BUN 14 Creatinine 0.67 Estimated GFR > 60 BUN/Creatinine Ratio 20.9 Glucose 132 H Hemoglobin A1c Lactate 1.4 Calcium 9.0 Magnesium Total Bilirubin 1.4 H AST 37 ALT 30 Alkaline Phosphatase 110 Total Creatine Kinase CK-MB (CK-2) CK-MB (CK-2) Rel Index Troponin I Total Protein 7.6 Albumin 3.9 Globulin 3.7 Albumin/Globulin Ratio 1.1 Lipase 41 Procalcitonin 0.20 Urine Color Urine Appearance Urine pH Ur Specific [place] Urine Protein Urine Glucose (UA) Urine Ketones Urine Occult Blood Urine Nitrate Urine Bilirubin Urine Urobilinogen Ur Leukocyte Esterase Urine RBC Urine WBC Amorphous Sediment Urine Bacteria Ur Culture Indicated? SARS-CoV-2 (PCR) Influenza A (RT-PCR) Influenza B (RT-PCR) RSV (PCR) 01/09/22 01/09/22 01/09/22 15:34 15:34 15:34 WBC RBC Hgb Hct MCV MCH MCHC RDW Plt Count Neut % (Auto) Lymph % (Auto) [place] % (Auto) Eos % (Auto) Baso % (Auto) Neut # (Auto) Lymph # (Auto) [place] # (Auto) Eos # (Auto) Baso # (Auto) Total Counted Seg Neutrophils % Band Neutrophils % Lymphocytes % (Manual) Monocytes % (Manual) Neutrophils # (Manual) RBC Morphology Anisocytosis D-Dimer 1296 H Sodium Potassium Chloride Carbon Dioxide BUN Creatinine Estimated GFR BUN/Creatinine Ratio Glucose Hemoglobin A1c Lactate Calcium Magnesium Total Bilirubin AST ALT Alkaline Phosphatase Total Creatine Kinase 27 L CK-MB (CK-2) TNP CK-MB (CK-2) Rel Index TNP Troponin I < 0.012 Total Protein Albumin Globulin Albumin/Globulin Ratio Lipase Procalcitonin Urine Color Yellow Urine Appearance Clear Urine pH 7.5 Ur Specific [place] 1.015 Urine Protein Negative Urine Glucose (UA) Trace H Urine Ketones Negative Urine Occult Blood Trace-lysed Urine Nitrate Negative Urine Bilirubin Negative Urine Urobilinogen 2.0 H Ur Leukocyte Esterase Trace H Urine RBC 0-1/hpf D Urine WBC 5-10/hpf H Amorphous Sediment 1+ Urine Bacteria Occasional (0-1) D Ur Culture Indicated? Specimen cultured SARS-CoV-2 (PCR) Influenza A (RT-PCR) Influenza B (RT-PCR) RSV (PCR) 01/09/22 01/09/22 01/10/22 15:34 15:56 07:40 WBC 13.6 H RBC 4.01 L Hgb 12.8 L Hct 36.6 L MCV 91.2 MCH 31.9 MCHC 35.0 RDW 12.8 Plt Count 203 Neut % (Auto) Not Reportable Lymph % (Auto) Not Reportable [place] % (Auto) Not Reportable Eos % (Auto) Not Reportable Baso % (Auto) Not Reportable Neut # (Auto) Lymph # (Auto) Not Reportable [place] # (Auto) Not Reportable Eos # (Auto) Baso # (Auto) Not Reportable Total Counted 100 Seg Neutrophils % 70.0 Band Neutrophils % 16.0 H Lymphocytes % (Manual) 9.0 L Monocytes % (Manual) 5.0 Neutrophils # (Manual) 03703 H RBC Morphology Not Reportable Anisocytosis 1+ H D-Dimer Sodium Potassium Chloride Carbon Dioxide BUN Creatinine Estimated GFR BUN/Creatinine Ratio Glucose Hemoglobin A1c 5.5 Lactate Calcium Magnesium Total Bilirubin AST ALT Alkaline Phosphatase Total Creatine Kinase CK-MB (CK-2) CK-MB (CK-2) Rel Index Troponin I Total Protein Albumin Globulin Albumin/Globulin Ratio Lipase Procalcitonin Urine Color Urine Appearance Urine pH Ur Specific [place] Urine Protein Urine Glucose (UA) Urine Ketones Urine Occult Blood Urine Nitrate Urine Bilirubin Urine Urobilinogen Ur Leukocyte Esterase Urine RBC Urine WBC Amorphous Sediment Urine Bacteria Ur Culture Indicated? SARS-CoV-2 (PCR) Negative Influenza A (RT-PCR) Flu a negative Influenza B (RT-PCR) Flu b negative RSV (PCR) Negative 01/10/22 07:40 WBC RBC Hgb Hct MCV MCH MCHC RDW Plt Count Neut % (Auto) Lymph % (Auto) [place] % (Auto) Eos % (Auto) Baso % (Auto) Neut # (Auto) Lymph # (Auto) [place] # (Auto) Eos # (Auto) Baso # (Auto) Total Counted Seg Neutrophils % Band Neutrophils % Lymphocytes % (Manual) Monocytes % (Manual) Neutrophils # (Manual) RBC Morphology Anisocytosis D-Dimer Sodium 133 L Potassium 3.5 Chloride 96 L Carbon Dioxide 27 BUN 14 Creatinine 0.60 L Estimated GFR > 60 BUN/Creatinine Ratio 23.3 H Glucose 116 H Hemoglobin A1c Lactate Calcium 8.6 Magnesium 1.8 Total Bilirubin 0.8 AST 32 ALT 33 Alkaline Phosphatase 92 Total Creatine Kinase CK-MB (CK-2) CK-MB (CK-2) Rel Index Troponin I Total Protein 6.7 Albumin 3.4 L Globulin 3.3 Albumin/Globulin Ratio 1.0 Lipase Procalcitonin Urine Color Urine Appearance Urine pH Ur Specific [place] Urine Protein Urine Glucose (UA) Urine Ketones Urine Occult Blood Urine Nitrate Urine Bilirubin Urine Urobilinogen Ur Leukocyte Esterase Urine RBC Urine WBC Amorphous Sediment Urine Bacteria Ur Culture Indicated? 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 Social History household members: spouse Smoking Status: Former smoker alcohol intake: current Assessment & Plan Assessment & Plan narrative: Sepsis secondary to acute cystitis secondary to acute urinary retention with hypotension, elevated bilirubin - recently here and treated as prostatitis but failed outpatient cipro treatment with continued high fevers and rigors at home - continue ceftriaxone - Consider therapy if he remains weak - follow up blood cultures, urine cultures from admit without growth, prior cultures show Klebsiella pneumoniae from ER visit sensitive to quinolones and cephalosporins. Diabetes type 2, controlled, present on admission - continue sliding scale, AM glucose controlled. Essential hypertension, chronic - hold home medication in setting of sepsis with hypotension overnight. HLD, chronic * Continue home dose of pravastatin Asthma, chronic * Continue Montelukast Insommnia, chronic - can continue home alprazolam for sleep VTE Prophylaxis: Wells risk score 0 XEnoxaparin 40 mg subQ once daily Bilateral SCDs Patient is admitted to the inpatient service due to the severity of disease, risks of further disease progression and this stay is expected to exceed 2 midnights. FEN: IV fluids: saline lock, diet: carb controlled diet, labs: CBC, C/BMP, liver enzymes, Mag, PT/INR Consultants None Dispo: probable d/c to home Code status: Full code as discussed with the patient who identifies his , Cammy as his surrogate and POA. [X] I have utilized all available immediate resources to obtain, update, or review of the patient's current medications VTE Deep Vein Thrombosis/Pulmonary Embolism Present on Admission: No MIPS - Admit I confirm the patient?s Advance Care Plan is present, Code status is documented, Surrogate decision maker is in patient?s record: Yes MIPS - DC The patient has current or prior documentation of left ventricular ejection fraction (LVEF) less than 40%, or moderate or severely depressed left ventricular systolic function.: No COVID-19 COVID-19 status: Negative Result date/Date tested (Pos, Neg/Pending): 01/09/22 Time Spent With Patient Critical Care time: I spent a total of [] minutes of critical care time on this patient's care today; this time is exclusive of procedural time. Quality VTE Deep Vein Thrombosis/Pulmonary Embolism Present on Admission: No
--- NOTE | 2022-01-10 13:12 | PC.NURSE ---
Pt is alert and orientedt x4. Pt's BP slightly elevated (149/66), remains afrebrile, and denies pain at this time. Upon entering the room, pt was still alseep. This SN and primary nurse noticed the pt stop breathing for 30 sec and resumed to takes breaths. Inquired with , who was in the room, if this was a normal occurrence with the pt. Pt's stated that the pt normally wears a CPAP at night. During the night, pt was on 1.5L 96% Sa02. Lungs auscultated, fine crackles at the base were noted, and pt confirmed the use of CPAP. Pt's said she will be back this afternoon and bring his CPAP from home for use during admission. Respiratory therapy was updated on these events and will follow up with pt. Will continue to monitor.
--- NOTE | 2022-01-10 14:15 | CM.DANOTE ---
Initial DCP Assessment Note Pt is an 81 yo male, [facility] resident of [place], admitted inpatient for management of Sepsis secondary to acute cystitis PCP: Fidel Edward Payer: RANCHO/ JULIET Rothman Reviewed chart, met w/patient and spouse to introduce self and role; very pleasant conversation, patient tired but in good spirits, intends to return home to the care of his upon discharge No hx HH or SNF, patient denies needs at this time. Both patient and spouse are indp and active at baseline, adult children and most family remain in [place], where both patient and spouse are from. No barriers identified at this time to patient's safe discharge home w/family to assist; close outpatient f/u recommended. ROSAURA Stoll Discharge Planning/Care Management CM Discharge Assessment Start: 01/10/22 14:09 Freq: Status: Active Protocol: Document 01/10/22 14:09 SUNI (Rec: 01/10/22 14:15 SUNI [id number]) Discharge Planning Assessment Assigned Hose Seamer ROSAURA Fisher DPOA/Assigned Designee Name Cammy Newman, spouse Contact Information [phone] Advance Directives? Yes Advance Directives on File No History Provided By Patient,Significant Other, Medical Record Prior Living Arrangements House Household Members spouse Type of transporation used prior to Drives own vehicle admit Independent with ADL's Yes Is patient alert and oriented? Yes Barriers to Discharge No Comment Home w/spouse and supportive friends Discharge Plan Home Transportation Arrangement Spouse Referrals Initiated None needed
[2022-01-10] MEDS: cefTRIAXone 2,000 MG in SODIUM CHLORIDE 0.9% 100 ML 200 MG IV (15:55)
[2022-01-10] MEDS: MONTELUKAST 10 MG TABLET PO (17:01)
--- NOTE | 2022-01-10 17:14 | PC.NURSE ---
Patient up to the chair with 1 person assist and walker. He is eating well at dinner, at bedside and helpful with care. He wants to try and have a bowel movement shortly and then we will help him back to bed.
[2022-01-10] MEDS: ALPRAZolam 0.5 MG TABLET PO (20:37)
[2022-01-11] VITALS (8 sets, daily range): BP systolic 117–118; BP diastolic 65–67; PULSE 77–86; RESP 14–18; TEMP 36.7; O2SAT 95–98
[2022-01-11 07:01] LABS: Add Manual Diff / Slide Review NO; Basophils Absolute Auto 0 /uL (0-100); Basophils Percent Auto 0.4 % (0-2); Eosinophils Absolute Auto 200 /uL (0-450); Eosinophils Percent Auto 2.1 % (2-4); Hematocrit 36.1 % (41-53); Hemoglobin 12.8 g/dL (13.5-17.5); Lymphocytes Absolute Auto 1200 /uL (1100-4500); Lymphocytes Percent Auto 11.6 % (25-40); Mean Corpuscular HGB Conc 35.4 % (30-36); Mean Corpuscular Volume 90.2 fL (80-100); Monocytes Absolute Auto 1400 /uL (0-900); Monocytes Percent Auto 13.5 % (3-14); Neutrophils Absolute Auto 7300 /uL (1500-7000); Neutrophils Percent Auto 72.4 % (50-75); Platelet Count 215 X10^3/uL (150-400); Red Cell Distribution Width 12.7 % (11.6-14.8); White Blood Cell Count 10.1 X10^3/uL (4.5-11.0)
[2022-01-11 07:10] LABS: Alanine Aminotransferase 31 IU/L (<50); Albumin 3.4 g/dL (3.5-5.0); Alkaline Phosphatase 96 U/L (38-126); Aspartate Aminotransferase 26 IU/L (17-59); BUN Creatinine Ratio 21.5 (6-22); Bilirubin Total 0.3 mg/dL (0.2-1.3); Blood Urea Nitrogen 14 mg/dL (9-20); Calcium 8.7 mg/dL (8.4-10.2); Carbon Dioxide 29 mmol/L (22-32); Chloride 99 mmol/L (98-107); Estimated Glomerular Filt Rate > 60 mL/min (>60); Globulin 3.3 g/dL (1.7-4.1); Glucose 103 mg/dL (80-110); HEMOLYSIS < 15 (0-50); Magnesium 1.7 mg/dL (1.6-2.3); Potassium 3.9 mmol/L (3.4-5.1); Sodium 135 mmol/L (137-145); Total Protein 6.7 g/dL (6.3-8.2)
[2022-01-11] MEDS: PRAVASTATIN 20 MG TABLET 10 MG PO (08:33)
[2022-01-11] MEDS: TRIAMTERENE/HCTZ 37.5/25 CAPSULE 1 CAP PO (08:33)
[2022-01-11] MEDS: ENOXAPARIN 40 MG/0.4 ML SYRINGE SUBCUT (08:33)
[2022-01-11] MEDS: ASPIRIN EC 81 MG TABLET PO (08:34)
[2022-01-11] MEDS: SODIUM CHLORIDE 0.9% FLUSH 10 ML IV (08:34)
[2022-01-11] MEDS: TAMSULOSIN 0.4 MG CAPSULE PO (08:34)
[2022-01-11] MEDS: ALBUTEROL 2.5 MG/3 ML NEB (ADULT) INH (08:59)
[2022-01-11] MEDS: IPRATROPIUM 0.5 MG/2.5 ML NEB INH ×2 (08:59→10:47)
--- NOTE | 2022-01-11 10:09 | CM.DPC ---
DCP Cont: Discussed patient during team rounds. It is noted that patient may be discharging home today. Patient does not have P.T. orders, hospitalist will see if patient needs. P: DCP to continue to follow. Patient may be discharging home today. Christy Razo RN/Print Line Tailer
--- NOTE | 2022-01-11 13:14 | P.DS_ITS ---
History of Present Illness History of Present Illness Date Patient Seen: 01/09/22 Time Patient Seen: 21:44 Chief complaint: Fever, Infection, Antibiotics not working Narrative: Per admitting provider: Mira Roberts is an 81 y.o. 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 He had been seen in the ED initially on January 07 with a complaint of hematuria diagnosed with prostatitis and cystitis, treated with Levaquin and prescribed oral Cipro on discharge. He apparently did not improve and ended up having a low-grade fever that increased from 90-101 and then 10 minutes later to 102.5. His decided to bring him in to be seen. He sees Aliyah Rosas PA-C at [facility]rology for BPH and urinary retention. Apparently has a history of elevated PSAs in the setting of UTI/sepsis. Patient was complaining of being cold in the room and shaking with rigors. He states that he normally sleeps with many giovanna nkets at baseline. He denies shortness of breath, chest pain, nausea or vomiting, diarrhea or constipation. Urine cultures that were drawn on 01/07 resulted today and indicates he is sensitive to ceftriaxone. In the emergency department he was started on IV ceftriaxone. T-max was 101.2?, he is temp is currently 98.7?, blood pressure 120/57, heart rate 71, respiratory rate 19, oxygen saturation of 97% on 2 L he weighs 85.7 kg with a BMI of 24/7. He does not have a white count but has a neutrophil count of 8900, D-dimer was mildly elevated at 12 96, sodium was 127 chloride 91 glucose 132 total bilirubin 1.4 UA has trace glucose with urine bilirubin, 5-10 urine wbc's and culture is pending. COVID-19 PCR is negative. Discharge Providers Provider Date of admission: 01/09/22 19:17 Discharge Date: 01/11/22 Primary care physician: Fidel Edward MD Discharge provider: Elian Burnham MD Summary Hospital Course Discharge Diagnosis: 1. Sepsis secondary to UTI secondary to acute urinary retention secondary to BPH 2. Tpye 2 Diabetes 3. HTN 4. HL 5. ASthma 6. Insomnia Hospital Course: Mr. Roberts was admitted with sepsis with a UTI. He has a known history of BPH and previously had been on flomax but was not taking this medication recently. He was found to be in urinary retention and had a bocanegra placed. He was disc harged with this bocanegra. Urine cultures were positive for Klebsiella and he was discharged with oral antibiotics. He was restarted on flomax. He ws encouraged to follow up with his urology clinic at [facility] in a week for voiding trial for bocanegra. Referral was sent. He was encouraged to follow up with PCP within one week. 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 Social History household members: spouse Smoking Status: Former smoker alcohol intake: current Discharge Plan Discharge Plan Patient Disposition: Home Provider Discharge Comment: Mr. Roberts was admitted with urinary retention and a urinary infection. He improved with antibiotics and was discharged with additional antibiotics. He was discharged with a bocanegra and should follow up with his PCP and urologist within one week. Discharge orders & Medications Prescriptions: New tamsulosin 0.4 mg capsule 0.4 mg PO BEDTIME Qty: 30 0RF levofloxacin 750 mg tablet 750 mg PO DAILY Qty: 5 0RF Continued Spiriva Respimat 2.5 mcg/actuation mist See Rx Instructions .ROUTE .COMPLEX Qty: 12 3RF Dose Instruction: inhale 1 puff by mouth once daily Rx Instructions: inhale 1 puff by mouth once daily potassium chloride 10 mEq tablet extended release 10 meq PO BID Qty: 60 3RF pravastatin 10 mg tablet 10 mg PO DAILY Qty: 90 3RF montelukast 10 mg tablet 10 mg PO QPM Qty: 30 3RF metformin 500 mg tablet See Rx Instructions .ROUTE .COMPLEX Qty: 180 0RF Dose Instruction: take 1 tablet by mouth twice a day with food Rx Instructions: take 1 tablet by mouth twice a day with food triamterene-hydrochlorothiazid 37.5-25 mg tablet See Rx Instructions .ROUTE .COMPLEX Qty: 90 0RF Dose Instruction: take 1 tablet by mouth once daily Rx Instructions: take 1 tablet by mouth once daily alprazolam 0.5 mg tablet See Rx Instructions .ROUTE .COMPLEX Qty: 60 0RF Dose Instruction: take 1 tablet by mouth twice a day if needed for anxiety Rx Instructions: take 1 tablet by mouth twice a day if needed for anxiety aspirin 81 mg tablet,delayed release (DR/EC) 81 mg PO DAILY albuterol sulfate [Ventolin HFA] 90 mcg/actuation HFA aerosol inhaler 1 puff INHALATION Q6H PRN (Reason: Shortness Of Breath) B-complex with vitamin C [Super B Complex-Vitamin C] Tablet 1 tab PO DAILY Follow up/Referrals: [facility] [Provider Group] - 1 Week (acute urinary retention, uti, void trial, dc on 01/11, please follow up one week) Fidel Edward MD [Primary Care Provider] - 3-5 Days Diet/Activity/Treatments Diet: Carb-consistent/Diabetic Visit Report/Discharge Packet Instructions: How to Care for Your Bocanegra Catheter -- Male, Urinary Tract Infection Discharge Data Primary Care Provider: Fidel Edward Quality VTE Deep Vein Thrombosis/Pulmonary Embolism Present on Admission: No
== END 2022-01-11 13:43 | disposition home or self-care (01) | DRG 872 ==
LOC: ED 15:17 → AC 19:18
PROVIDERS: Nurse Practitioner Family; Admitting Provider Internal Medicine; Emergency Provider Emergency Medicine; PCP Family Medicine; Referring Provider Emergency Medicine; Visit Provider Internal Medicine
DX: A41.9 Sepsis, unspecified organism (principal); N41.0 Acute prostatitis; N39.0 Urinary tract infection, site not specified; E11.9 Type 2 diabetes mellitus without complications; I10 Essential (primary) hypertension; E78.5 Hyperlipidemia, unspecified; R53.1 Weakness; G47.00 Insomnia, unspecified; N40.1 Benign prostatic hyperplasia with lower urinary tract symptoms; R33.8 Other retention of urine; B96.1 Klebsiella pneumoniae [K. pneumoniae] as the cause of diseases classified elsewhere; F41.9 Anxiety disorder, unspecified; J45.909 Unspecified asthma, uncomplicated; G47.33 Obstructive sleep apnea (adult) (pediatric); Z20.822 Contact with and (suspected) exposure to COVID-19; Z79.84 Long term (current) use of oral hypoglycemic drugs; Z87.891 Personal history of nicotine dependence; R10.30 Lower abdominal pain, unspecified
CPT/HCPCS: 0241U; 36415; 71045; 71275; 74176; 76770; 80053; 81001; 82550; 82962; 83036; 83605; 83690; 83735; 84145; 84484; 85007; 85025; 85379; 85610; 87040; 87077; 87086; 87186; 93005; 94640; 94760; 96365; 96366; 96375; 99284; 99285; J0696; J1650; J1815; J1885; J1956; J7613; Q9967

== ENCOUNTER → 2022-06-04 11:25 | Outpatient (CLI) | payer MEDICARE, BC, SELFPAY ==
[2022-01-09 20:19] VITALS: BMI 24.7
[2022-06-04 13:02] LABS: Add Manual Diff / Slide Review NO; Basophils Absolute Auto 0 /uL (0-100); Basophils Percent Auto 0.7 % (0-2); Eosinophils Absolute Auto 100 /uL (0-450); Eosinophils Percent Auto 1.8 % (2-4); Hematocrit 42.4 % (41-53); Hemoglobin 14.7 g/dL (13.5-17.5); Lymphocytes Absolute Auto 1800 /uL (1100-4500); Lymphocytes Percent Auto 34.1 % (25-40); Mean Corpuscular HGB Conc 34.7 % (30-36); Mean Corpuscular Hemoglobin 31.7 PG (26-34); Mean Corpuscular Volume 91.4 fL (80-100); Monocytes Absolute Auto 600 /uL (0-900); Neutrophils Absolute Auto 2600 /uL (1500-7000); Neutrophils Percent Auto 51.4 % (50-75); Platelet Count 223 X10^3/uL (150-400); Red Blood Cell Count 4.64 X10^6/uL (4.5-5.9); Red Cell Distribution Width 13.4 % (11.6-14.8); White Blood Cell Count 5.1 X10^3/uL (4.5-11.0)
[2022-06-04 14:00] LABS: Alanine Aminotransferase 27 IU/L (<50); Albumin 4.1 g/dL (3.5-5.0); Albumin Globulin Ratio 1.3 (1.0-2.8); Alkaline Phosphatase 85 U/L (38-126); Aspartate Aminotransferase 28 IU/L (17-59); BUN Creatinine Ratio 22.2 (6-22); Bilirubin Total 0.5 mg/dL (0.2-1.3); Blood Urea Nitrogen 14 mg/dL (9-20); Calcium 9.3 mg/dL (8.4-10.2); Carbon Dioxide 29 mmol/L (22-32); Chloride 100 mmol/L (98-107); Cholesterol 203 mg/dL (140-199); Estimated Glomerular Filt Rate > 60 mL/min (>60); Globulin 3.1 g/dL (1.7-4.1); Glucose 95 mg/dL (80-110); HDL Cholesterol 89 mg/dL (40-60); HEMOLYSIS < 15 (0-50); LDL Cholesterol Calculated 100 mg/dL (<100); Potassium 4.1 mmol/L (3.4-5.1); Sodium 136 mmol/L (137-145); Total Protein 7.2 g/dL (6.3-8.2); Triglycerides 69 mg/dL (35-150)
[2022-06-04 18:21] LABS: Creatinine Urine Random 39.2 mg/dL
[2022-06-04 18:26] LABS: Microalbumin Urine Random < 0.6 mg/dL (0-1.6)
[2022-06-06 05:45] LABS: Labcorp Hemoglobin (Hb) A1c 5.5 % (4.8-5.6)
== END ==
PROVIDERS: PCP Family Medicine; Referring Provider Family Medicine; Visit Provider Family Medicine
DX: C61 Malignant neoplasm of prostate (principal); I10 Essential (primary) hypertension; Z12.5 Encounter for screening for malignant neoplasm of prostate; E11.9 Type 2 diabetes mellitus without complications; R10.9 Unspecified abdominal pain
CPT/HCPCS: 36415; 80053; 80061; 82043; 82570; 83036; 85025; G0103

== ENCOUNTER → 2022-06-08 10:42 | Outpatient (CLI) | payer MEDICARE, BC, SELFPAY ==
[2022-01-09 20:19] VITALS: BMI 24.7
--- NOTE | 2022-06-08 10:45 | DI.CT.S_ITS ---
PROCEDURE: CT ANGIO CHEST INDICATIONS: chronic left-sided chest pain with inhalation TECHNIQUE: After the administration of intravenous contrast, 2 mm thick sections acquired from the pulmonary apices to the posterior costophrenic angles. 3-dimensional maximum intensity projection (MIP) coronal and sagittal reformats were then acquired through the thorax. For radiation dose reduction, the following was used: automated exposure control, adjustment of mA and/or kV according to patient size. COMPARISON: [facility], CT, CT ANGIO CHEST PE PROTOCOL, 01/09/2022, 16:57. FINDINGS: Image quality: Excellent. Pulmonary arteries: Pulmonary arteries are normal in size, and demonstrate no intraluminal filling defects to suggest central pulmonary embolism. Lungs and pleura: Lungs are clear. No pleural effusions or pneumothorax. Central and peripheral airways are patent. Stable 1 cm pulmonary nodule, right lateral costophrenic angle. Psru-cx-guydyefk centrilobular emphysema. Mediastinum: Heart size is normal, without pericardial effusion. Mild to moderate coronary artery calcifications. No mediastinal or hilar adenopathy. Thoracic aorta is normal in caliber and enhancement. Esophagus is normal in caliber, wit with mild to moderate hiatal hernia. hout hiatal hernia. Bones and chest wall: No suspicious bony lesions. Ribs and thoracic spine appear intact throughout. Thyroid gland is unremarkable. No axillary or supraclavicular adenopathy. Abdomen: Visualized upper abdominal solid organs appear normal in the early arterial phase of enhancement. IMPRESSION: 1. No evidence acute pulmonary emboli. 2. No evidence of acute pulmonary process. 3. Normal caliber thoracic aorta. 4. Qcqf-cx-dedgxjjp centrilobular emphysema. 5. Stable 1 cm right lateral costophrenic angle pulmonary nodule. 6. Mild to moderate hiatal hernia. Dictated by: Efrain Bowman M.D. on 06/08/2022 at 12:15 Approved by: Efrain Bowman M.D. on 06/08/2022 at 12:21
--- NOTE | 2022-06-08 10:45 | DI.CT.S_ITS ---
PROCEDURE: CT KIDNEY URETER BLADDER (KUB) INDICATIONS: left flank and abdminal pain TECHNIQUE: Axial sections were acquired from the lung bases to the pubic symphysis. Coronal and sagittal reformats were performed. For radiation dose reduction, the following was used: automated exposure control, adjustment of mA and/or kV according to patient size. COMPARISON: [facility], CT, CT KIDNEY URETER BLADDER (KUB), 01/07/2022, 16:43. FINDINGS: Image quality: Excellent. Lung bases: Bibasilar atelectasis/scarring. Small hiatal hernia. Redemonstration of lateral right lung base nodule measuring approximately 7-8 mm in size. Heart size is normal. Coronary atherosclerotic vascular calcifications are noted. Urinary system: Both kidneys are normal in size. No kidney stones. No hydronephrosis or perinephric fat stranding. Both ureters appear non-dilated throughout their expected courses. There is a simple appearing cyst in the posterior left kidney measuring approximately 3.2 x 2.7 cm in size. Bladder wall thickness is circumferentially thickened as before; no calcified bladder stones. Other solid organs: Liver is normal in size. Gallbladder is unremarkable. Pancreas is normal in contours. Spleen is normal in size. No adrenal nodules. Peritoneum and bowel: Unenhanced bowel loops demonstrate normal wall thickness and caliber. No free fluid or air. Nodes and vessels: No retroperitoneal or mesenteric adenopathy by size criteria. Atherosclerotic calcifications of the abdominal aorta with redemonstration of infrarenal fusiform abdominal aortic aneurysm measuring approximately 3.1 cm in maximum AP dimension. Abdominal wall: No ventral hernias. Pelvis: No free pelvic fluid. No inguinal hernias. No pelvice adenopathy. Moderate prostatic enlargement of before. Bones: No acute vertebral body compression fractures. Multilevel spondylitic changes throughout the imaged spine. No suspicious osseous lesions. No acute vertebral body compression fractures. IMPRESSION: 1. CT abdomen and pelvis without acute abnormalities. Specifically, no evidence for urolithiasis or obstructive uropathy. 2. Redemonstration of diffuse urinary bladder wall thickening without acute inflammatory changes. No calcified bladder stones. As before, enlarged prostate gland with mass effect. Findings may represent sequela chronic outlet obstruction. Concurrent cystitis not excluded if clinically appropriate. 3. Atherosclerosis. 4. Redemonstration of infrarenal abdominal aortic aneurysm measuring up to 3.1 cm in maximum AP dimension. 5. Small hiatal hernia. 6. Redemonstration of 7-8 mm right lower lobe pulmonary nodule. Recommend continued surveillance with follow-up CT in approximately 1 year. Dictated by: Rojelio Del Toro M.D. on 06/08/2022 at 13:03 Approved by: Rojelio Del Toro M.D. on 06/08/2022 at 13:18
== END ==
PROVIDERS: PCP Family Medicine; Referring Provider Family Medicine; Visit Provider Family Medicine
DX: R07.9 Chest pain, unspecified (principal); J43.2 Centrilobular emphysema; R91.1 Solitary pulmonary nodule; I71.43 Infrarenal abdominal aortic aneurysm, without rupture; I70.0 Atherosclerosis of aorta; I25.10 Atherosclerotic heart disease of native coronary artery without angina pectoris; I10 Essential (primary) hypertension; K44.9 Diaphragmatic hernia without obstruction or gangrene; R10.9 Unspecified abdominal pain; N40.0 Benign prostatic hyperplasia without lower urinary tract symptoms; R39.89 Other symptoms and signs involving the genitourinary system; G89.29 Other chronic pain
CPT/HCPCS: 71275; 74176; Q9967

== ENCOUNTER → 2022-07-02 09:18 | Outpatient (CLI) | payer MEDICARE, BC, SELFPAY ==
[2022-01-09 20:19] VITALS: BMI 24.7
--- NOTE | 2022-07-02 14:32 | P.PCN_ITS ---
Cardiac Stress Test Report Referral & Results Date Patient Seen: 07/02/22 Requesting provider: Fidel Edward Indication: Chest pain Rest ECG: Unremarkable Procedure Note: After both written and verbal informed consent the patient had an IV started by the diagnostic imaging RN and then was hooked up to the treadmill monitoring system. The patient was placed on the treadmill at 1 mile an hour with no elevation and was then injected with the Amy scan material. The Cardiolite was then immediately administered. The patient spent an additional 2-3 minutes on the treadmill before being returned to the [facility] in the supine position. The patient had a normal response to all infused materials. Impression: Normal response as above, please see perfusion imaging report for details regarding possible ischemia Please note: Actual ECG tracings can be found in the PACS system.
--- NOTE | 2022-07-03 02:15 | DI.NM.S_ITS ---
DATE OF SERVICE: 07/02/2022 PROCEDURE: Pharmacological perfusion study. INDICATIONS: Chest pain with underlying history of diabetes mellitus, hypertension, hyperlipidemia, CAD. RADIOPHARMACEUTICAL: 25.7 millicurie technetium-99m Myoview IV was injected at stress and 12.2 millicurie technetium-99m Myoview IV was injected at rest. CARDIAC STRESS: The patient underwent pharmacological perfusion study under the supervision of an attending staff. He received IV Lexiscan as per protocol. Remained hemodynamically stable. Resting blood pressure 122/75. No cardiovascular symptoms. Baseline electrocardiogram sinus rhythm. During stress, no convincing ischemic changes seen. No significant arrhythmias. RAW DATA: Raw data there is increased subdiaphragmatic activity. GATED STUDY: Resting LV ejection fraction 84 and stress LV ejection fraction 85% without any obvious wall motion abnormalities. Resting end-diastolic volume 68 mL. TID ratio 0.88, which is within normal limits. Lung/heart ratio 0.30, which is within normal limits. MYOCARDIAL PERFUSION SCAN: Stress supine, resting supine, and stress prone images were compared to each other. Stress supine and resting supine images revealed small size, mildly decreased perfusion of inferior wall as well as mid anterior wall which got improved during stress prone images suggestive of tissue attenuation artifact. On stress prone images, no convincing ischemia or infarction pattern. CONCLUSION: I will call this study likely a normal myocardial perfusion study with evidence of tissue attenuation artifact which got significantly improved during stress prone images. No convincing ischemia or infarction pattern. Preserved left ventricular function. Normal wall motion. No ischemic electrocardiographic changes or significant arrhythmias. Overall, low-risk myocardial perfusion scan. Pamela Roberts - KERI/yoel/joaquin doc#: [id number]/job#: [id number] dd: 07/02/2022 16:56:00 dt: 07/03/2022 02:06:00 DICTATING MD/COPIES TO: Kai Eason MD COPIES MNE: ELIUD;
== END ==
PROVIDERS: PCP Family Medicine; Referring Provider Family Medicine; Visit Provider Family Medicine
DX: R07.9 Chest pain, unspecified (principal); I25.10 Atherosclerotic heart disease of native coronary artery without angina pectoris; I10 Essential (primary) hypertension; E11.9 Type 2 diabetes mellitus without complications; E78.5 Hyperlipidemia, unspecified; Z95.5 Presence of coronary angioplasty implant and graft
CPT/HCPCS: 78452; 93016; 93017; 93018; A9502; J2785

== ENCOUNTER → 2022-10-23 09:45 | Outpatient (CLI) | payer MEDICARE, BC, SELFPAY ==
[2022-01-09 20:19] VITALS: BMI 24.7
--- NOTE | 2022-10-23 | DI.CT.S_ITS ---
PROCEDURE: CT ABDOMEN PELVIS W CON INDICATIONS: ACUTE CYSTITIS TECHNIQUE: After the administration of oral and intravenous contrast, axial sections were acquired from the lung bases to the pubic symphysis. Coronal and sagittal reformats were performed. For radiation dose reduction, the following was used: automated exposure control, adjustment of mA and/or kV according to patient size. COMPARISON:[facility], CT, CT KIDNEY URETER BLADDER (KUB), 01/07/2022, 16:43. FINDINGS: Image quality: Excellent. Lung bases: Mild bibasilar subsegmental atelectasis. Heart: Mild coronary artery calcifications. Trace pericardial effusion. The heart is normal in size. ABDOMEN: Liver: Unremarkable. Gallbladder: Unremarkable. Biliary ducts: Unremarkable. Pancreas: Unremarkable. Spleen: Unremarkable. Adrenal Glands: Unremarkable. Kidneys and Ureters: Stable appearance of left renal cyst. The kidneys enhance symmetrically without hydronephrosis. Stomach and Bowel: Small hiatal hernia. The small bowel loops, and colon are unremarkable. Peritoneum: No abnormal intraperitoneal fluid. No free air. Ventral Wall: No hernia. Abdominal Nodes: No retroperitoneal or mesenteric adenopathy by size criteria. Vessels: Focal dilatation of the infrarenal abdominal aorta with calcified intraluminal plaque measuring 10 mm in thickness. The aorta measures up to 3 cm in thickness.. Atherosclerotic vascular calcifications. PELVIS: Pelvic Organs: Prostate is enlarged. Bladder: Urinary bladder wall thickening, may be secondary to chronic bladder outlet obstruction or cystitis. Pelvic Nodes: No enlarged lymph nodes. Miscellaneous: No inguinal hernias are seen. Bones: Multilevel degenerative changes of the spine. IMPRESSION: 1. Prostatomegaly. Diffuse urinary bladder wall thickening without evidence of mass. Findings may represent chronic bladder outlet obstruction versus cystitis, recommend correlation with urinary analysis. 2. Stable infrarenal abdominal aortic aneurysm measuring up to 3.0 cm. 3. Small hiatal hernia. Dictated by: Lewis Terry M.D. on 10/23/2022 at 13:39 Approved by: Lewis Terry M.D. on 10/23/2022 at 13:46
[2022-10-23 10:10] LABS: Estimated Glomerular Filt Rate > 60 mL/min (>60)
== END ==
PROVIDERS: Radiology Diagnostic Radiology; PCP Family Medicine; Referring Provider Urology; Visit Provider Urology
DX: I71.40 Abdominal aortic aneurysm, without rupture, unspecified (principal); N30.00 Acute cystitis without hematuria; R39.11 Hesitancy of micturition; N40.0 Benign prostatic hyperplasia without lower urinary tract symptoms; K44.9 Diaphragmatic hernia without obstruction or gangrene
CPT/HCPCS: 36415; 74177; 82565; Q9967

== ENCOUNTER → 2023-01-04 11:01 | Outpatient (CLI) | payer MEDICARE, BC, SELFPAY ==
[2022-01-09 20:19] VITALS: BMI 24.7
[2023-01-04 13:49] LABS: Hemoglobin A1C% w Est Avg Glu 5.6 % (4.0-6.0)
== END ==
PROVIDERS: PCP Family Medicine; Referring Provider Family Medicine; Visit Provider Family Medicine
DX: E11.9 Type 2 diabetes mellitus without complications (principal); I10 Essential (primary) hypertension; I25.10 Atherosclerotic heart disease of native coronary artery without angina pectoris
CPT/HCPCS: 36415; 83036

== ENCOUNTER 2023-02-18 12:00 | Outpatient (RCR) | payer MEDICARE, BC, SELFPAY ==
[2022-01-09 20:19] VITALS: BMI 24.7
--- NOTE | 2023-02-11 14:03 | PT.OIE ---
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 Type 2 diabetes mellitus without complication Past Surgical History (Last Reviewed 12/16/22 @ 15:30 by Nury Warner PA-C) Anesthesia History of lumbar laminectomy for spinal cord decompression History of prostate surgery (~2018) S/P total knee arthroplasty Status post cervical spinal fusion (~2014) Status post LASIK surgery (~2009) Visit Care Team Role Provider Type Fidel Edward MD Attending Provider Physician Family Provider Primary Care Provider Referring Provider Specialty: [facility] Practice Address: [address] [place] [address] Email: [email or web address] Therapy Initial Evaluation PT-OP-A Visit Information Start: 02/11/23 13:46 Freq: Status: Active Protocol: Document 02/11/23 12:10 DCW (Rec: 02/11/23 14:03 DCW [id number]) Out-Patient Physical Therapy Visit Information Visit Information Visit Type Initial Evaluation Visit Start Time 12:10 Visit Stop Time 12:45 Total Visit Minutes 35 Visit Number 1 Number of PRE PLANNING ADVISOR Visits 0 Evaluation Information Evaluation Date 02/11/23 PT-OP-B Current Condition Start: 02/11/23 13:46 Freq: Status: Active Protocol: Document 02/11/23 12:10 DCW (Rec: 02/11/23 14:03 DCW [id number]) Current Condition History of Current Condition Current Complaints Position-dependent vertigo History of Current Condition Pt is an 82 year old male complaining of a one year history of motion-induced vertigo. Pt reports episodes last a minute or two. Symptoms are provoked by getting into or out of bed, fast head turns, or turning corners too quickly. Pt reports that after starting a year ago, it went away after a month, then came back, and went away. Thought he was doing better overall, but then just a few days ago, it started again. Pt has severely limited cervical motion secondary to a cervical fusion . Treatment Goals Patient/Caregiver Goals Eliminate vertigo PT-OP-C Subjective Start: 02/11/23 13:46 Freq: Status: Active Protocol: Document 02/11/23 12:10 DCW (Rec: 02/11/23 14:03 DCW [id number]) OP-PT Subjective Patient Comments Patient Comments When it started, I took pills (Meclizine) 3x/day for a month. That seemed to help. PT-OP-O Vestibular Start: 02/11/23 13:46 Freq: Status: Active Protocol: Document 02/11/23 12:10 DCW (Rec: 02/11/23 14:03 DCW [id number]) Vestibular Assessment Visual Testing Smooth Pursuits Horizontal WNL Smooth Pursuits Vertical WNL Saccades Horizontal WNL Saccades Vertical WNL Heave Test Positive Bilateral Thrust Head Positive Bilateral Positional Testing Jerome-Hallpike Positive Right,Upbeating,< 60 Seconds Comments Vestibular Comments Severe limitations in cervical ROM limited positioning during Jerome-Hallpike and Anika. Table put into reverse Trendelenberg. PT-OP-Q Treatments Start: 02/11/23 13:46 Freq: Status: Active Protocol: Document 02/11/23 12:10 DCW (Rec: 02/11/23 14:03 DCW [id number]) Canalithic Repositioning BPPV Treatment Anika Affected Canal(s) Right posterior Reps x1 PT-OP-T Assessment and Plan Start: 02/11/23 13:46 Freq: Status: Active Protocol: Document 02/11/23 12:10 DCW (Rec: 02/11/23 14:03 DCW [id number]) Physical Therapy Assessment Rehab Potential Rehabilitation Potential Good Evaluation Complexity Number of Personal Factors/Comorbidities 1-2 Number of Body Systems Impaired 1-2 Clinical Presentation at Evaluation Unstable Impairments Impairments Balance,Functional Activities, Functional Mobility,Posture, ROM,Vestibular Goals Two Impairment Positive right Jerome-Hallpike Salvage Determiner Goal (LTG) Pt to exhibit negative positional testing bilaterally LTG Duration 04/14/23 One Impairment Pt experiences vertigo with positional changes Senior Living Goal (LTG) Pt to perform bed mobility with no symptoms of vertigo for one full week LTG Duration 04/14/23 Assessment Summary Assessment During right [place]-Hallpike test , pt experienced no symptoms of vertigo, however demonstrated very mild up- beating, torsional nystagmus lasting approximately 5 seconds, which may be suggestive with diagnosis of right-sided posterior canal BPPV, canalithiasis-type. Testing and treatment were both severely limited but immobility in pt's neck s/p cervical fusion, which unfortunately decreases likelihood of successful treatment. Pt was able to undergo a right-sided modified Anika maneuver with treatment table in reverse Trendelenberg position. Pt was educated on BPPV, expectations for treatment, and post-Anika restrictions. Pt to return in ~1 week for a follow-up appointment, and intermittently afterward as indicated for treatment of BPPV. Physical Therapy Plan Frequency and Duration Frequency of Treatment 1-2x/week Plan of Care Start Date 02/11/23 Plan of Care End Date 04/14/23 Therapeutic Interventions Therapeutic Interventions Balance Training,Canalithic Repositioning,Home Exercise Program,Neuromuscular Re- education,Patient/Caregiver Education,Self-Care/Home Management,Therapeutic Activities,Therapeutic Exercises,Vestibular Rehabilitation Next Visit Focus/Plan Next Note Type Treatment Note Next Visit Plan Positional testing, CRM as indicated
--- NOTE | 2023-02-11 14:04 | PT.OPPOC ---
Physical, Occupational & Speech Therapy At [facility] Current Diagnoses Benign paroxysmal vertigo, right ear (02/11/23) Dizziness and giddiness (02/11/23) Visit Care Team Role Provider Type Fidel Edward MD Attending Provider Physician Family Provider Primary Care Provider Referring Provider Specialty: Family Practice Address: [address] [place] [address], [facility] Email: [email or web address] Plan Of Care PT-OP-T Assessment and Plan Start: 02/11/23 13:46 Freq: Status: Active Protocol: Document 02/11/23 12:10 DCW (Rec: 02/11/23 14:03 DCW [id number]) Physical Therapy Assessment Rehab Potential Rehabilitation Potential Good Evaluation Complexity Number of Personal Factors/Comorbidities 1-2 Number of Body Systems Impaired 1-2 Clinical Presentation at Evaluation Unstable Impairments Impairments Balance,Functional Activities, Functional Mobility,Posture, ROM,Vestibular Goals Two Impairment Positive right [place]-Hallpike [facility] Goal (LTG) Pt to exhibit negative positional testing bilaterally LTG Duration 04/14/23 One Impairment Pt experiences vertigo with positional changes 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 Testing and treatment were both severely limited but immobility in pt's neck s/p cervical fusio, which unfortunately decreases likelihood of successful treatment. Pt was able to undergo a right-sided modified Anika maneuver with treatment table in reverse Trendelenberg position. Pt was educated on BPPV, expectations for treatment, and post-Anika restrictions. Pt to return in ~1 week for a follow-up appointment, and intermittently afterward as indicated for treatment of BPPV. Physical Therapy Plan Frequency and Duration Frequency of Treatment 1-2x/week Plan of Care Start Date 02/11/23 Plan of Care End Date 04/14/23 Therapeutic Interventions Therapeutic Interventions Balance Training,Canalithic Repositioning,Home Exercise Program,Neuromuscular Re- education,Patient/Caregiver Education,Self-Care/Home Management,Therapeutic Activities,Therapeutic Exercises,Vestibular Rehabilitation Next Visit Focus/Plan Next Note Type Treatment Note Next Visit Plan Positional testing, CRM as indicated Plan of Care Dates Plan of Care Start Date 02/11/23 Plan of Care End Date 04/14/23 Electronically Signed by: Missael Adler, PT 02/11/23 4741 If you are in agreement with this Plan of Care, please return a signed and dated copy. I have reviewed this Plan of Care and certify that the skilled therapy services above are required to meet the patient?s needs. Physician Signature Date Printed Name and Credentials Clinical Instructor Signature Printed Name and Credentials
--- NOTE | 2023-02-18 12:15 | PT.OTN ---
Current Diagnoses Benign paroxysmal vertigo, right ear (02/18/23) Dizziness and giddiness (02/18/23) Physical Therapy Treatment Note PT-OP-A Visit Information Start: 02/11/23 13:46 Freq: Status: Active Protocol: Document 02/18/23 12:00 DCW (Rec: 02/18/23 12:15 DCW [id number]) Out-Patient Physical Therapy Visit Information Visit Information Visit Type Discharge Summary Visit Start Time 12:00 Visit Stop Time 12:10 Total Visit Minutes 10 Visit Number 2 Number of RECEIVING INSPECTOR Visits 0 Evaluation Information Evaluation Date 02/11/23 PT-OP-B Current Condition Start: 02/11/23 13:46 Freq: Status: Active Protocol: Document 02/11/23 12:10 DCW (Rec: 02/11/23 14:03 DCW [id number]) Current Condition History of Current Condition Current Complaints Position-dependent vertigo History of Current Condition Pt is an 82 year old male complaining of a one year history of motion-induced vertigo. Pt reports episodes last a minute or two. Symptoms are provoked by getting into or out of bed, fast head turns, or turning corners too quickly. Pt reports that after starting a year ago, it went away after a month, then came back, and went away. Thought he was doing better overall, but then just a few days ago, it started again. Pt has severely limited cervical motion secondary to a cervical fusion . Treatment Goals Patient/Caregiver Goals Eliminate vertigo PT-OP-C Subjective Start: 02/11/23 13:46 Freq: Status: Active Protocol: Document 02/18/23 12:00 DCW (Rec: 02/18/23 12:15 DCW [id number]) OP-PT Subjective Patient Comments Patient Comments Pt reports no dizziness since his last visit. PT-OP-O Vestibular Start: 02/11/23 13:46 Freq: Status: Active Protocol: Document 02/18/23 12:00 DCW (Rec: 02/18/23 12:15 DCW [id number]) Vestibular Assessment Positional Testing [place]-Hallpike Negative Left,Negative Right Comments Vestibular Comments Severe limitations in cervical ROM limited positioning during Rosa Maria-Hallpike. Table put into reverse Trendelenberg. PT-OP-Q Treatments Start: 02/11/23 13:46 Freq: Status: Active Protocol: Document 02/11/23 12:10 DCW (Rec: 02/11/23 14:03 DCW [id number]) Canalithic Repositioning BPPV Treatment Anika Affected Canal(s) Right posterior Reps x1 PT-OP-T Assessment and Plan Start: 02/11/23 13:46 Freq: Status: Active Protocol: Document 02/18/23 12:00 DCW (Rec: 02/18/23 12:15 DCW [id number]) Physical Therapy Assessment Impairments Impairments Balance,Functional Activities, Functional Mobility,Posture, ROM,Vestibular Goals Two Impairment Positive right [place]-Hallpike Plater Apprentice Goal (LTG) Pt to exhibit negative positional testing bilaterally LTG Duration Met One Impairment Pt experiences vertigo with positional changes Plater Apprentice Goal (LTG) Pt to perform bed mobility with no symptoms of vertigo for one full week LTG Duration Met Assessment Summary Assessment Pt has experienced no symptoms since undergoing Anika maneuver at initial evaluation . [place]-Hallpike testing today was negative. Pt was educated on possible recurrence (BPPV has a ~50% recurrence rate in the five years following treatment). Pt has met all goals, and is appropriate for discharge from skilled vestibular therapy at this time. Physical Therapy Plan Frequency and Duration Frequency of Treatment 1-2x/week Plan of Care Start Date 02/11/23 Plan of Care End Date 04/14/23 Therapeutic Interventions Therapeutic Interventions Balance Training,Canalithic Repositioning,Home Exercise Program,Neuromuscular Re- education,Patient/Caregiver Education,Self-Care/Home Management,Therapeutic Activities,Therapeutic Exercises,Vestibular Rehabilitation Discharge Physical Therapy Discharge Reasons Goals Met Next Visit Focus/Plan Next Note Type Discharge Summary
== END 2023-02-25 13:29 | disposition home or self-care (01) ==
LOC: PHYS 12:00
PROVIDERS: Family Provider Family Medicine; PCP Family Medicine; Referring Provider Family Medicine; Visit Provider Family Medicine
DX: H81.11 Benign paroxysmal vertigo, right ear (principal)
CPT/HCPCS: 95992; 97140; 97161

== ENCOUNTER → 2023-05-11 11:08 | Outpatient (CLI) | payer MEDICARE, BC, SELFPAY ==
[2022-01-09 20:19] VITALS: BMI 24.7
--- NOTE | 2023-05-11 11:10 | DI.RAD.S_ITS ---
PROCEDURE: XR CHEST 2V INDICATIONS: wheezing x 3 days, cough, hx copd TECHNIQUE: 2 views of the chest were acquired. COMPARISON: [facility], CR, XR CHEST 1V, 01/09/2022, 15:39. FINDINGS: Surgical changes and devices: None. Lungs and pleura: Lungs are clear. No pleural effusions or pneumothorax. Mediastinum: Mediastinal contours are normal. Heart size is normal. Bones and chest wall: No suspicious bony abnormalities. Soft tissues appear unremarkable. IMPRESSION: No acute cardiopulmonary abnormality is seen. Approved by: Alejandro Ingram M.D. on 05/11/2023 at 21:16
== END ==
LOC: RAD 11:09
PROVIDERS: Family Provider Family Medicine; PCP Family Medicine; Referring Provider Physician Assistant; Visit Provider Physician Assistant
DX: J44.1 Chronic obstructive pulmonary disease with (acute) exacerbation (principal); J45.901 Unspecified asthma with (acute) exacerbation; Z20.828 Contact with and (suspected) exposure to other viral communicable diseases
CPT/HCPCS: 0241U; 71046

== ENCOUNTER → 2023-05-11 15:13 | Outpatient (CLI) | payer MEDICARE, BC, SELFPAY ==
[2022-01-09 20:19] VITALS: BMI 24.7
[2023-05-11 16:15] LABS: Influenza A - CEPHEID Flu A NEGATIVE (NEGATIVE); Influenza B - CEPHEID Flu B NEGATIVE (NEGATIVE); Respiratory Syncytial Virus Negative (Negative)
[2023-05-11 16:19] LABS: COVID-19 CEPHEID 4-PLEX PCR Negative (Negative)
== END ==
PROVIDERS: Family Provider Family Medicine; PCP Family Medicine; Visit Provider Physician Assistant
DX: Z20.828 Contact with and (suspected) exposure to other viral communicable diseases (principal)
CPT/HCPCS: 0241U

== ENCOUNTER → 2023-06-09 14:58 | Outpatient (CLI) | payer MEDICARE, BC, SELFPAY ==
[2022-01-09 20:19] VITALS: BMI 24.7
--- NOTE | 2023-06-09 15:03 | DI.RAD.S_ITS ---
PROCEDURE: XR CERVICAL SPINE 2V OR 3V INDICATIONS: chronic pain, can't turn head. hx with surgery @ 2015 TECHNIQUE: 3 view(s) of the cervical spine were acquired. COMPARISON: None. FINDINGS: Bones: No fractures or dislocations to the T1 level. The lateral masses of C1 appear intact on the odontoid view. Expected appearance of orthopedic surgical hardware, status post ACDF at C3-C4. No evidence of hardware failure or loosening. Diffuse spondylitic change. No suspicious bony lesions. Soft tissues: No prevertebral soft tissue swelling. IMPRESSION: Expected appearance of orthopedic surgical hardware. Diffuse cervical spondylitic change. Dictated by: Efrain Bowman M.D. on 06/09/2023 at 17:20 Approved by: Efrain Bowman M.D. on 06/09/2023 at 17:21
== END ==
PROVIDERS: Family Provider Family Medicine; PCP Family Medicine; Referring Provider Physician Assistant; Visit Provider Physician Assistant
DX: M47.812 Spondylosis without myelopathy or radiculopathy, cervical region (principal); M54.2 Cervicalgia; Z98.1 Arthrodesis status
CPT/HCPCS: 72040

== ENCOUNTER → 2023-06-25 09:05 | Outpatient (CLI) | payer MEDICARE, BC, SELFPAY ==
[2022-01-09 20:19] VITALS: BMI 24.7
== END ==
PROVIDERS: Family Provider Family Medicine; PCP Family Medicine; Referring Provider Internal Medicine; Visit Provider Internal Medicine
DX: J44.9 Chronic obstructive pulmonary disease, unspecified (principal); Z87.891 Personal history of nicotine dependence
CPT/HCPCS: 94060; 94726; 94729

== ENCOUNTER → 2023-07-06 15:19 | Outpatient (CLI) | payer MEDICARE, BC, SELFPAY ==
[2022-01-09 20:19] VITALS: BMI 24.7
[2023-07-06 16:47] LABS: Add Manual Diff / Slide Review NO; Basophils Absolute Auto 0 /uL (0-100); Basophils Percent Auto 0.6 % (0-2); Eosinophils Absolute Auto 200 /uL (0-450); Eosinophils Percent Auto 2.2 % (2-4); Lymphocytes Absolute Auto 1900 /uL (1100-4500); Lymphocytes Percent Auto 25.3 % (25-40); Mean Corpuscular HGB Conc 35.1 % (30-36); Mean Corpuscular Volume 96.9 fL (80-100); Monocytes Absolute Auto 900 /uL (0-900); Monocytes Percent Auto 12.3 % (3-14); Neutrophils Absolute Auto 4600 /uL (1500-7000); Neutrophils Percent Auto 59.6 % (50-75); Platelet Count 331 X10^3/uL (150-400); Red Blood Cell Count 4.13 X10^6/uL (4.5-5.9); Red Cell Distribution Width 13.6 % (11.6-14.8); White Blood Cell Count 7.6 X10^3/uL (4.5-11.0)
[2023-07-06 17:05] LABS: Alanine Aminotransferase 24 IU/L (<50); Albumin 4.4 g/dL (3.5-5.0); Albumin Globulin Ratio 1.4 (1.0-2.8); Alkaline Phosphatase 66 U/L (38-126); Aspartate Aminotransferase 34 IU/L (17-59); BUN Creatinine Ratio 32.8 (6-22); Bilirubin Total 0.6 mg/dL (0.2-1.3); Blood Urea Nitrogen 20 mg/dL (9-20); Calcium 9.4 mg/dL (8.4-10.2); Carbon Dioxide 28 mmol/L (22-32); Chloride 106 mmol/L (98-107); Cholesterol 184 mg/dL (140-199); Estimated Glomerular Filt Rate > 60 mL/min (>60); Globulin 3.2 g/dL (1.7-4.1); Glucose 94 mg/dL (80-110); HDL Cholesterol 73 mg/dL (40-60); LDL Cholesterol Calculated 96 mg/dL (<100); Potassium 3.9 mmol/L (3.4-5.1); Sodium 139 mmol/L (137-145); Total Protein 7.6 g/dL (6.3-8.2); Triglycerides 75 mg/dL (35-150)
[2023-07-06 17:06] LABS: Creatinine Urine Random 165.2 mg/dL
[2023-07-06 17:09] LABS: Microalbumi Creatinin Ratio Ur 4.8 ug/mg CR (<30); Microalbumin Urine Random 0.8 mg/dL (0-1.6)
[2023-07-06 17:32] LABS: HEMOLYSIS 58 (0-50)
[2023-07-06 17:33] LABS: Prostate Specific Antigen Scrn 8.69 ng/mL (0.1-4.0)
[2023-07-06 17:39] LABS: TSH w/ Reflex to FT4 0.56 uIU/mL (0.47-4.68)
== END ==
PROVIDERS: Family Provider Family Medicine; PCP Family Medicine; Referring Provider Family Medicine; Visit Provider Family Medicine
DX: Z12.5 Encounter for screening for malignant neoplasm of prostate (principal); E11.9 Type 2 diabetes mellitus without complications; I10 Essential (primary) hypertension; E78.5 Hyperlipidemia, unspecified; C61 Malignant neoplasm of prostate; I25.10 Atherosclerotic heart disease of native coronary artery without angina pectoris
CPT/HCPCS: 36415; 80053; 80061; 82043; 82570; 84443; 85025; G0103

== ENCOUNTER → 2023-08-31 09:10 | Outpatient (CLI) | payer MEDICARE, BC, SELFPAY ==
[2022-01-09 20:19] VITALS: BMI 24.7
== END ==
PROVIDERS: Family Provider Family Medicine; PCP Family Medicine; Referring Provider Nurse Practitioner Family; Visit Provider Nurse Practitioner Family
DX: R30.0 Dysuria (principal)
CPT/HCPCS: 87086

== ENCOUNTER 2023-08-31 09:46 | Emergency (ER) | payer MEDICARE, BC, SELFPAY ==
[2022-01-09 20:19] VITALS: BMI 24.7
[2023-08-31] VITALS (14 sets, daily range): BP systolic 104–148; BP diastolic 55–76; PULSE 100–108; RESP 12–25; TEMP 36.9; O2SAT 96–98; BMI 24.3
--- NOTE | 2023-08-31 09:57 | DI.RAD.S_ITS ---
PROCEDURE: XR CHEST 1V INDICATIONS: suspected sepsis TECHNIQUE: One view of the chest was acquired. COMPARISON: [facility], CR, XR CHEST 2V, 05/11/2023, 11:15. [facility], CR, XR CHEST 1V, 01/09/2022, 15:39. FINDINGS: Surgical changes and devices: Partially visualized cervical spine fixation hardware. Lungs and pleura: Lungs are clear. No pleural effusions or pneumothorax. Mediastinum: Mediastinal contours appear normal. Heart size is normal. Bones and chest wall: No suspicious bony lesions. Overlying soft tissues appear unremarkable. IMPRESSION: No acute cardiopulmonary abnormality is seen. Dictated by: Valerie Romano MD, PhD on 08/31/2023 at 11:02 Approved by: Valerie Romano MD, PhD on 08/31/2023 at 11:03
[2023-08-31] MEDS: SODIUM CHLORIDE 0.9% 1,000 ML 1000 ML IV (10:02)
--- NOTE | 2023-08-31 10:07 | EKG_ITS ---
[address] [address] Test Date: 2023-08-31 Pat Name: Pamela Roebrts Department: Room: Gender: Male Celebrity Manager: MARIVEL : 1940 Requested By: Order Number: [id number] Reading MD: Enzo Caldera Measurements Intervals [place] Rate: 104 P: 80 CA: 168 QRS: -17 QRSD: 138 T: 86 QT: 382 QTc: 502 Interpretive Statements Sinus tachycardia Left bundle branch block Electronically Signed On 09-01-2023 19:42:16 PDT by Enzo Caldera
--- NOTE | 2023-08-31 10:31 | ED.MALEGU ---
HPI - Male Genitourinary General Chief complaint: Urogenital-Male Stated complaint: bad uti Time Seen by Provider: 08/31/23 10:16 Source: patient Mode of arrival: Wheelchair History of Present Illness HPI Narrative: Patient 83-year-old male history of type 2 diabetes, recurrent UTIs, BPH, hypertension presenting today with UTI. He was actually seen evaluated walk-in clinic we would nitrates in his urine sent to the ED for further workup. primary historian reports that he was doing well yesterday working on his car drove [place] the airport but last night started having some painful frequent urination. This morning he is definitely more sleepy. Denies any nausea vomiting or abdominal pain. No calf or chest pain. He was supposed to have follow-up with his urologist and have a nuclear stress test but during that time he got COVID. says that those symptoms have resolved. I sounds he has had drug resistant UTIs in the past they have had to change the antibiotics. Related Data Home Medications Medication Instructions Recorded Confirmed aspirin 81 mg tablet,delayed 81 mg PO DAILY 03/10/18 07/06/23 release d-mannose 500 mg capsule (AZO mg PO 06/16/22 07/06/23 D-Mannose) cholecalciferol (vitamin D3) 25 25 mcg PO DAILY 05/12/23 07/06/23 mcg (1,000 unit) capsule nerve shield Plus 1 cap PO DAILY 05/12/23 07/06/23 Previous Rx's Medication Instructions Recorded Disabled Parking Permit 1 ea Not Applicable DAILY #1 ea 04/15/22 Hemp Extract Pain Relief Cream See Rx Instructions .Route 01/05/23 .COMPLEX #118 mL benzonatate 200 mg capsule 200 mg PO TID PRN cough #30 caps 05/11/23 guaifenesin 1,200 mg tablet, 1,200 mg PO Q12H #30 tabs 05/11/23 extended release 12 hr albuterol sulfate 90 mcg/actuation 2 puff inhalation QID PRN 05/12/23 aerosol inhaler (Ventolin HFA) shortness of breath or wheezing #6.7 grams inhalational spacing device #1 ea 05/12/23 (BreatheRite MDI Spacer) fluticasone fur. 200 mcg-umeclid 1 inh inhalation DAILY #60 ea 06/01/23 62.5 mcg-vilant 25 mcg inhalat.powder (Trelegy Ellipta) triamterene 37.5 1 tab PO DAILY #90 tabs 06/08/23 mg-hydrochlorothiazide 25 mg tablet meloxicam 15 mg tablet 15 mg PO DAILY #30 tabs 06/09/23 potassium chloride 10 mEq 10 meq PO DAILY #90 tabs 06/15/23 tablet,extended release metformin 500 mg tablet 500 mg PO DAILY #90 tabs 06/22/23 omeprazole 20 mg capsule,delayed 20 mg PO .qhs #60 caps 07/06/23 release nirmatrelvir 300 mg (150 mg See Rx Instructions PO .COMPLEX 08/03/23 x2)-ritonavir 100 mg tablet,dose #30 ea pack (Paxlovid) lidocaine 5 % topical patch 1 patch topical DAILY #15 ea 08/12/23 pravastatin 10 mg tablet See Rx Instructions .Route 08/16/23 .COMPLEX #90 tabs alprazolam 0.5 mg tablet 0.5 mg PO BID PRN anxiety #60 tabs 08/27/23 ciprofloxacin HCl 500 mg tablet 500 mg PO BID #14 tabs 08/31/23 (Cipro) Allergies Allergy/AdvReac Type Severity Reaction Status Date / Time albuterol AdvReac Severe tachycardia Verified 08/31/23 09:54 Patient History Medical History Type 2 diabetes mellitus without complication Primary osteoarthritis involving multiple joints Plantar fasciitis, right BPH (benign prostatic hyperplasia) KORI (obstructive sleep apnea) Osteoarthritis of left knee Hearing loss Asthma Anxiety Colon polyps Pulmonary nodule COPD (chronic obstructive pulmonary disease) Hypertension Hyperlipidemia Facet arthropathy, lumbar Pain of left patella 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 Social History household members: spouse Smoking Status: Former smoker alcohol intake: current Smoking Status: Former smoker alcohol intake frequency: 3 or more drinks per day Alcohol type: wine Substance Use Type: does not use Exam Initial Vital Signs Initial Vital Signs: Vital Signs Temperature 98.5 F 08/31/23 09:47 Pulse Rate 103 H 08/31/23 09:47 Respiratory Rate 17 08/31/23 09:47 Blood Pressure 145/66 H 08/31/23 09:47 Pulse Oximetry 97 08/31/23 09:47 Oxygen Delivery Method Room Air 08/31/23 09:47 GENERAL: Weak sleeping but arousable 83-year-old male and in no acute distress. HEENT: Head atraumatic,EOMI, pupils reactive, face symmetric, moist mucous membranes CARDIOVASCULAR: Regular rate and rhythm without murmurs, rubs or gallops. RESPIRATORY: Breath sounds equal bilaterally, no wheezes rales or rhonchi. ABDOMEN: Soft, nontender. Normoactive bowel sounds all 4 quadrants. No guarding or rebound. : No CVA tenderness EXTREMITIES: Normal range of motion, no clubbing or edema. Neurovascularly intact NEUROLOGICAL: Alert and oriented x4.Normal gait and speech. SKIN: Warm, dry, no laceration, no petechiae, no rashes or lesions. Course Orders Ordered: ED Orders 08/31/23 09:57 XR chest 1V Stat EKG-12 Lead Stat RT Consult Eval and Treat NOW 08/31/23 10:05 Blood Culture Stat Complete Blood Count AUTO DIFF Stat Comprehensive Metabolic Panel Stat Lactate (Lactic Acid) Stat Lipase Stat PTT Partial Thromboplastin Enrique Stat Procalcitonin Stat Prothrombin Time INR Stat 08/31/23 10:37 CT kidney ureter bladder (KUB) Stat Discontinued Medications Sodium Chloride (Normal Saline 0.9%) 1,000 mls @ 1,000 mls/hr IV BOLUS ONE Stop: 08/31/23 10:56 Last Infusion: 08/31/23 11:30 Dose: Infused Documented By: Admin: 08/31/23 10:02 Dose: 1,000 mls/hr Documented By: RALPH Ceftriaxone Sodium 1,000 mg/ (Sodium Chloride) 100 mls @ 200 mls/hr IV NOW ONE Stop: 08/31/23 10:38 Last Infusion: 08/31/23 12:18 Dose: Infused Documented By: Admin: 08/31/23 10:50 Dose: 200 mls/hr Documented By: Ondansetron HCl (Ondansetron 4 Mg/2 Ml Inj) 4 mg IV NOW PRN PRN Reason: Nausea And Vomiting Vital Signs Vital signs: Vital Signs - 8 hr 08/31/23 09:47 08/31/23 09:53 08/31/23 10:05 Temperature 98.5 F Pulse Rate 103 H 106 H 101 H Respiratory Rate 17 22 Blood Pressure 145/66 H 145/66 H 148/67 H Pulse Oximetry 97 97 97 Oxygen Delivery Method Room Air 08/31/23 10:30 08/31/23 10:31 08/31/23 10:31 Temperature Pulse Rate 108 H 108 H Respiratory Rate 25 H 24 Blood Pressure 146/56 H Pulse Oximetry 97 97 Oxygen Delivery Method 08/31/23 11:00 08/31/23 11:00 08/31/23 11:19 Temperature Pulse Rate 107 H 108 H Respiratory Rate 25 H 22 Blood Pressure 123/59 L 114/66 Pulse Oximetry 96 98 Oxygen Delivery Method 08/31/23 11:30 08/31/23 12:00 08/31/23 12:30 Temperature Pulse Rate 100 H 103 H 105 H Respiratory Rate 12 16 20 Blood Pressure 117/55 L 112/55 L 104/67 Pulse Oximetry 98 98 98 Oxygen Delivery Method 08/31/23 13:01 08/31/23 13:30 08/31/23 14:00 Temperature Pulse Rate 100 H 101 H Respiratory Rate 22 22 Blood Pressure 129/59 L 117/76 130/64 Pulse Oximetry 97 97 Oxygen Delivery Method 08/31/23 14:00 08/31/23 14:12 Temperature Pulse Rate 103 H 101 H Respiratory Rate 23 20 Blood Pressure 130/64 Pulse Oximetry 97 97 Oxygen Delivery Method Room Air MDM - Male Genitourinary Lab Data 08/31/23 10:05 08/31/23 10:05 Labs: Lab Results 08/31/23 Range/Units 10:05 WBC 11.1 H (4.5-11.0) X10^3/uL RBC 4.37 L (4.5-5.9) X10^6/uL Hgb 14.1 (13.5-17.5) g/dL Hct 40.8 L (41-53) % MCV 93.5 (80-100) fL MCH 32.2 (26-34) PG MCHC 34.4 (30-36) % RDW 14.3 (11.6-14.8) % Plt Count 218 (150-400) X10^3/uL Neut % (Auto) 82.6 H (50-75) % Lymph % (Auto) 7.0 L (25-40) % [place] % (Auto) 10.1 (3-14) % Eos % (Auto) 0.1 L (2-4) % Baso % (Auto) 0.2 (0-2) % Neut # (Auto) 9200 H (0982-2264) /uL Lymph # (Auto) 800 L (6165-1194) /uL [place] # (Auto) 1100 H (0-900) /uL Eos # (Auto) 0 (0-450) /uL Baso # (Auto) 0 (0-100) /uL PT 11.5 (9.4-12.5) SECONDS INR 1.0 (0.9-1.3) APTT 33 (25.1-36.5) SECONDS Sodium 135 L (137-145) mmol/L Potassium 4.2 (3.4-5.1) mmol/L Chloride 100 (98-107) mmol/L Carbon Dioxide 30 (22-32) mmol/L BUN 18 (9-20) mg/dL Creatinine 0.62 L (0.66-1.25) mg/dL Estimated GFR > 60 (>60) mL/min BUN/Creatinine Ratio 29.0 H (6-22) Glucose 127 H (80-110) mg/dL Lactate 2.0 (0.7-2.1) mmol/L Calcium 8.9 (8.4-10.2) mg/dL Total Bilirubin 1.0 (0.2-1.3) mg/dL AST 34 (17-59) IU/L ALT 25 (<50) IU/L Alkaline Phosphatase 83 (38-126) U/L Total Protein 7.8 (6.3-8.2) g/dL Albumin 4.3 (3.5-5.0) g/dL Globulin 3.5 (1.7-4.1) g/dL Albumin/Globulin Ratio 1.2 (1.0-2.8) Lipase 60 (23-300) U/L Procalcitonin 0.053 (<0.5) ng/mL Imaging Data CT scan - abdomen/pelvis: Radiologist's Impression: PROCEDURE: CT KIDNEY URETER BLADDER (KUB) INDICATIONS: uti r/o stone TECHNIQUE: Axial sections were acquired from the lung bases to the pubic symphysis. Coronal and sagittal reformats were performed. For radiation dose reduction, the following was used: automated exposure control, adjustment of mA and/or kV according to patient size. COMPARISON: None. FINDINGS: Image quality: Diagnostic. Lower Chest: No significant findings. URINARY: Kidneys: Kidneys are normal in size and contour. Less than 1 millimeter nonobstructing stone in the lower pole of the left kidney. No hydronephrosis. Simple left renal cyst. No complex renal cyst that require follow-up imaging. Bladder: Normal wall thickness. No stones. ABDOMEN: Liver: No contour-deforming solid mass. Gallbladder: No radiopaque gallstones or wall thickening. Biliary ducts: No biliary dilation. Pancreas: No ductal dilation. Spleen: Size is within normal limits. Adrenal Glands: No adrenal nodules. Stomach and Bowel: Small hiatal hernia. Normal colonic caliber, without significant wall thickening. No evidence of appendicitis. Peritoneum: No abnormal intraperitoneal fluid. No free air. Ventral Wall: No hernia. Abdominal Nodes: No enlarged retroperitoneal or mesenteric lymph nodes. Vessels: Scattered atherosclerotic calcifications involving the abdominal and pelvic vasculature. 3.0 x 3.2 centimeter infrarenal abdominal aortic aneurysm. PELVIS: Pelvic Organs: Bladder wall is mildly thickened and irregular. Prostate is enlarged. Pelvic Nodes: Unremarkable. Miscellaneous: No inguinal hernias are seen. Bones: Spine degenerative disc disease and facet arthropathy. IMPRESSION: Urinary bladder wall thickening and irregularity consistent with cystitis. Recommend correlation with urinalysis data. Less than 1 millimeter nonobstructing left renal stone. No hydronephrosis. 3.0 x 3.2 centimeter infrarenal abdominal aortic aneurysm. Prostatomegaly. Small hiatal hernia. Dictated by: Valerie Romano MD, PhD on 08/31/2023 at 12:25 ECG Data Attestation: I personally reviewed and interpreted this ECG as follows: Prior ECG tracings: available for review Interpretation: Normal sinus rhythm rate 104 IA interval 168 QRS 138 left bundle-branch block noted no Sgarbossa criteria similar to previous EKGs MDM Narrative Medical decision making narrative: Patient 83-year-old male history of sepsis recurrent UTIs presents today with UTI. He appears mildly weak family reports a little confused. He is tachycardic does not meet SIRS criteria but there is concern for sepsis with known UTI. Blood work has been reviewed WBC 11.1, hemoglobin 14.1 hematocrit 40.8, platelets 218, sodium 135, potassium 4.2, chloride 100 carbon dioxide 30 BUN 18 creatinine 0.6, glucose 127, lactate 2.0, bilirubin 1.0, AST 34 ALT 25 alk-phos 83, procalcitonin 0.053 Urinalysis positive for nitrates CT does show a 1 mm left renal stone with evidence of cystitis Patient is given IV fluids and Rocephin based on previous culture Patient does have UTI vitals are mildly tachycardic but not hypotensive or febrile. Lactic acid is 2.0 will sign of severe sepsis. He is tolerating p.o. food and liquid Dr. Caldera in ED to see and evaluate patient at this time recommends discharge home on Cipro Discharge Plan Departure Patient Disposition: Home Clinical Impression: Acute UTI Instructions: DI for Urinary Tract Infection (UTI) Activity Restrictions/Additional Instructions: *You have been diagnosed with UTI *What to do: At this time will try outpatient antibiotics Cipro based on previous urine cultures. Increase fluids as tolerated *Continue to take medications as directed Cipro 500 mg twice a day for 7 days *Follow up with your primary care provider in 2-3 days or call [phone] *Return to ER if you should have increasing confusion decreasing intake [or] any new, worsening or concerning symptoms Prescriptions: New ciprofloxacin HCl [Cipro] 500 mg tablet 500 mg PO BID Qty: 14 0RF No Action benzonatate 200 mg capsule 200 mg PO TID PRN (Reason: cough) Qty: 30 0RF guaifenesin 1,200 mg tablet extended release 12hr 1,200 mg PO Q12H Qty: 30 0RF triamterene-hydrochlorothiazid 37.5-25 mg tablet 1 tab PO DAILY Qty: 90 2RF potassium chloride 10 mEq tablet extended release 10 meq PO DAILY Qty: 90 0RF metformin 500 mg tablet 500 mg PO DAILY Qty: 90 2RF Paxlovid 300 mg (150 mg x 2)-100 mg tablets,dose pack See Rx Instructions PO .COMPLEX Qty: 30 0RF Rx Instructions: take TWO 150 mg tablets of nirmatrelvir with ONE 100 mg tablet of ritonavir twice daily for 5 days PO lidocaine 5 % adhesive patch,medicated 1 patch topical DAILY Qty: 15 0RF Rx Instructions: leave on most painful area for up to 12 hrs pravastatin 10 mg tablet See Rx Instructions .ROUTE .COMPLEX Qty: 90 3RF Dose Instruction: take 1 tablet by mouth once daily Rx Instructions: take 1 tablet by mouth once daily alprazolam 0.5 mg tablet 0.5 mg PO BID PRN (Reason: anxiety) Qty: 60 1RF Rx Instructions: authorize early refill due to travel AZO D-Mannose 500 mg capsule PO Hemp Extract Pain Relief Cream See Rx Instructions .ROUTE .COMPLEX Qty: 118 0RF Rx Instructions: Apply small amount to affected area twice each day as needed for pain meloxicam 15 mg tablet 15 mg PO DAILY Qty: 30 0RF Disabled Parking Permit 1 ea Not Applicable DAILY Qty: 1 0RF Rx Instructions: As directed omeprazole 20 mg capsule,delayed release(DR/EC) 20 mg PO .qhs Qty: 60 0RF cholecalciferol (vitamin D3) 25 mcg (1,000 unit) capsule 25 mcg PO DAILY nerve shield Plus 1 cap PO DAILY albuterol sulfate [Ventolin HFA] 90 mcg/actuation HFA aerosol inhaler 2 puff inhalation QID PRN (Reason: shortness of breath or wheezing) Qty: 6.7 11RF (DME) BreatheRite MDI Spacer Spacer See Rx Instructions .Route Qty: 1 1RF Rx Instructions: As directed aspirin 81 mg tablet,delayed release (DR/EC) 81 mg PO DAILY Trelegy Ellipta 200-62.5-25 mcg blister with device 1 inh inhalation DAILY Qty: 60 2RF Rx Instructions: rinse mouth with water, gargle and spit after each use Referrals: Fidel Edward MD [Primary Care Provider] - Stand Alone Forms: Patient Portal/API
--- NOTE | 2023-08-31 10:37 | DI.CT.S_ITS ---
PROCEDURE: CT KIDNEY URETER BLADDER (KUB) INDICATIONS: uti r/o stone TECHNIQUE: Axial sections were acquired from the lung bases to the pubic symphysis. Coronal and sagittal reformats were performed. For radiation dose reduction, the following was used: automated exposure control, adjustment of mA and/or kV according to patient size. COMPARISON: None. FINDINGS: Image quality: Diagnostic. Lower Chest: No significant findings. URINARY: Kidneys: Kidneys are normal in size and contour. Less than 1 millimeter nonobstructing stone in the lower pole of the left kidney. No hydronephrosis. Simple left renal cyst. No complex renal cyst that require follow-up imaging. Bladder: Normal wall thickness. No stones. ABDOMEN: Liver: No contour-deforming solid mass. Gallbladder: No radiopaque gallstones or wall thickening. Biliary ducts: No biliary dilation. Pancreas: No ductal dilation. Spleen: Size is within normal limits. Adrenal Glands: No adrenal nodules. Stomach and Bowel: Small hiatal hernia. Normal colonic caliber, without significant wall thickening. No evidence of appendicitis. Peritoneum: No abnormal intraperitoneal fluid. No free air. Ventral Wall: No hernia. Abdominal Nodes: No enlarged retroperitoneal or mesenteric lymph nodes. Vessels: Scattered atherosclerotic calcifications involving the abdominal and pelvic vasculature. 3.0 x 3.2 centimeter infrarenal abdominal aortic aneurysm. PELVIS: Pelvic Organs: Bladder wall is mildly thickened and irregular. Prostate is enlarged. Pelvic Nodes: Unremarkable. Miscellaneous: No inguinal hernias are seen. Bones: Spine degenerative disc disease and facet arthropathy. IMPRESSION: Urinary bladder wall thickening and irregularity consistent with cystitis. Recommend correlation with urinalysis data. Less than 1 millimeter nonobstructing left renal stone. No hydronephrosis. 3.0 x 3.2 centimeter infrarenal abdominal aortic aneurysm. Prostatomegaly. Small hiatal hernia. Dictated by: Valerie Romano MD, PhD on 08/31/2023 at 12:25 Approved by: Valerie Romano MD, PhD on 08/31/2023 at 12:30
[2023-08-31 10:50] LABS: Add Manual Diff / Slide Review NO; Basophils Absolute Auto 0 /uL (0-100); Basophils Percent Auto 0.2 % (0-2); Eosinophils Absolute Auto 0 /uL (0-450); Eosinophils Percent Auto 0.1 % (2-4); Hematocrit 40.8 % (41-53); Hemoglobin 14.1 g/dL (13.5-17.5); Lymphocytes Absolute Auto 800 /uL (1100-4500); Mean Corpuscular HGB Conc 34.4 % (30-36); Mean Corpuscular Hemoglobin 32.2 PG (26-34); Mean Corpuscular Volume 93.5 fL (80-100); Monocytes Absolute Auto 1100 /uL (0-900); Monocytes Percent Auto 10.1 % (3-14); Neutrophils Absolute Auto 9200 /uL (1500-7000); Neutrophils Percent Auto 82.6 % (50-75); Platelet Count 218 X10^3/uL (150-400); Red Blood Cell Count 4.37 X10^6/uL (4.5-5.9); Red Cell Distribution Width 14.3 % (11.6-14.8); White Blood Cell Count 11.1 X10^3/uL (4.5-11.0)
[2023-08-31] MEDS: cefTRIAXone 1,000 MG in SODIUM CHLORIDE 0.9% 100 ML 200 MG IV (10:50)
[2023-08-31 10:53] LABS: Prothrombin Time 11.5 SECONDS (9.4-12.5)
[2023-08-31 10:56] LABS: PTT Partial Thromboplastin Tim 33 SECONDS (25.1-36.5)
[2023-08-31 11:12] LABS: Alanine Aminotransferase 25 IU/L (<50); Albumin 4.3 g/dL (3.5-5.0); Albumin Globulin Ratio 1.2 (1.0-2.8); Alkaline Phosphatase 83 U/L (38-126); Aspartate Aminotransferase 34 IU/L (17-59); Blood Urea Nitrogen 18 mg/dL (9-20); Calcium 8.9 mg/dL (8.4-10.2); Carbon Dioxide 30 mmol/L (22-32); Chloride 100 mmol/L (98-107); Estimated Glomerular Filt Rate > 60 mL/min (>60); Globulin 3.5 g/dL (1.7-4.1); Glucose 127 mg/dL (80-110); Lipase 60 U/L (23-300); Potassium 4.2 mmol/L (3.4-5.1); Sodium 135 mmol/L (137-145); Total Protein 7.8 g/dL (6.3-8.2)
[2023-08-31 11:15] LABS: HEMOLYSIS 56 (0-50)
[2023-08-31 11:29] LABS: Procalcitonin 0.053 ng/mL (<0.5)
--- NOTE | 2023-08-31 14:27 | PM.CN ---
History of Present Illness Consult details Date Patient Seen: 08/31/23 Time Patient Seen: 14:27 Chief complaint: bad uti Reason for consult: Acute cystitis Requesting provider: Yany Richardson Narrative: Mira Roberts is an 83 y.o. 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 Burning has been worsening over the last couple of days. He is not nauseous and denies fever at home. He has no abdominal pain, diarrhea, rash either. His last infection was well over a year ago, where he grew a Klebsiella resistant to penicillins. In the ER, patient was mildly tachycardic, EKG showed sinus tachy with a LBBB. BP was normal, he was not febrile. Labs showed mild leukocytosis with WBC 11.1, normal lactate at 2.0. He was given a dose of ceftiraxone, medicine was asked to evaluate for admission. Spouse at bedside states patient is at his usual mentation. Patient's current only complaint is of dysuria. Meds Home Medications and Allergies Home Medications Medication Instructions Recorded Confirmed Type aspirin 81 mg tablet,delayed 81 mg PO DAILY 03/10/18 07/06/23 History release Disabled Parking Permit 1 ea Not Applicable DAILY #1 ea 04/15/22 07/06/23 Rx d-mannose 500 mg capsule (AZO mg PO 06/16/22 07/06/23 History D-Mannose) Hemp Extract Pain Relief Cream See Rx Instructions .Route 01/05/23 07/06/23 Rx .COMPLEX #118 mL benzonatate 200 mg capsule 200 mg PO TID PRN cough #30 caps 05/11/23 07/06/23 Rx guaifenesin 1,200 mg tablet, 1,200 mg PO Q12H #30 tabs 05/11/23 07/06/23 Rx extended release 12 hr albuterol sulfate 90 mcg/actuation 2 puff inhalation QID PRN 05/12/23 07/06/23 Rx aerosol inhaler (Ventolin HFA) shortness of breath or wheezing #6.7 grams cholecalciferol (vitamin D3) 25 25 mcg PO DAILY 05/12/23 07/06/23 History mcg (1,000 unit) capsule inhalational spacing device #1 ea 05/12/23 07/06/23 Rx (BreatheRite MDI Spacer) nerve shield Plus 1 cap PO DAILY 05/12/23 07/06/23 History fluticasone fur. 200 mcg-umeclid 1 inh inhalation DAILY #60 ea 06/01/23 07/06/23 Rx 62.5 mcg-vilant 25 mcg inhalat.powder (Trelegy Ellipta) triamterene 37.5 1 tab PO DAILY #90 tabs 06/08/23 07/06/23 Rx mg-hydrochlorothiazide 25 mg tablet meloxicam 15 mg tablet 15 mg PO DAILY #30 tabs 06/09/23 07/06/23 Rx potassium chloride 10 mEq 10 meq PO DAILY #90 tabs 06/15/23 07/06/23 Rx tablet,extended release metformin 500 mg tablet 500 mg PO DAILY #90 tabs 06/22/23 07/06/23 Rx omeprazole 20 mg capsule,delayed 20 mg PO .qhs #60 caps 07/06/23 07/06/23 Rx release nirmatrelvir 300 mg (150 mg See Rx Instructions PO .COMPLEX 08/03/23 Rx x2)-ritonavir 100 mg tablet,dose #30 ea pack (Paxlovid) lidocaine 5 % topical patch 1 patch topical DAILY #15 ea 08/12/23 Rx pravastatin 10 mg tablet See Rx Instructions .Route 08/16/23 Rx .COMPLEX #90 tabs alprazolam 0.5 mg tablet 0.5 mg PO BID PRN anxiety #60 tabs 08/27/23 Rx ciprofloxacin HCl 500 mg tablet 500 mg PO BID #14 tabs 08/31/23 Rx (Cipro) Allergies Allergy/AdvReac Type Severity Reaction Status Date / Time albuterol AdvReac Severe tachycardia Verified 08/31/23 09:54 Review of Systems Review of Systems Narrative: All other systems reviewed with the patient and are negative unless otherwise stated. Exam Vital Signs (past 8 hours): - 08/31/23 09:47 08/31/23 09:53 08/31/23 10:05 Temperature 98.5 F Pulse Rate 103 H 106 H 101 H Respiratory Rate 17 22 Blood Pressure 145/66 H 145/66 H 148/67 H Pulse Oximetry 97 97 97 Oxygen Delivery Method Room Air 08/31/23 10:30 08/31/23 10:31 08/31/23 10:31 Temperature Pulse Rate 108 H 108 H Respiratory Rate 25 H 24 Blood Pressure 146/56 H Pulse Oximetry 97 97 Oxygen Delivery Method 08/31/23 11:00 08/31/23 11:00 08/31/23 11:19 Temperature Pulse Rate 107 H 108 H Respiratory Rate 25 H 22 Blood Pressure 123/59 L 114/66 Pulse Oximetry 96 98 Oxygen Delivery Method 08/31/23 11:30 08/31/23 12:00 08/31/23 12:30 Temperature Pulse Rate 100 H 103 H 105 H Respiratory Rate 12 16 20 Blood Pressure 117/55 L 112/55 L 104/67 Pulse Oximetry 98 98 98 Oxygen Delivery Method 08/31/23 13:01 08/31/23 13:30 08/31/23 14:00 Temperature Pulse Rate 100 H 101 H Respiratory Rate 22 22 Blood Pressure 129/59 L 117/76 130/64 Pulse Oximetry 97 97 Oxygen Delivery Method 08/31/23 14:00 08/31/23 14:12 Temperature Pulse Rate 103 H 101 H Respiratory Rate 23 20 Blood Pressure 130/64 Pulse Oximetry 97 97 Oxygen Delivery Method Room Air Oxygen Delivery Method Room Air Narrative Exam Narrative: General:? Patient is well developed and well nourished, in no distress at this time. HEENT:? Normocephalic, atraumatic, extraocular muscles intact, oral pharynx is clear and mucous membranes are moist. Neck: supple and symmetric, trachea is midline, no cervical adenopathy. Negative for JVD Chest:? Normal AP diameter and contour without kyphoscoliosis, no tachypnea, equal chest rise bilaterally. Lungs:? CTA b/l no wheezing rhonchi or rales. Cardio:?RRR no m/r/g. Abdomen: S NT ND. No CVA tenderness. Musculoskeletal:? Muscle strength and tone are equal within normal limits, no deformity. Extremities: No edema or joint effusions. No cyanosis or clubbing. Skin:? Pale,? Warm to touch,dry and intact without rashes, ulcerations or petechiae.? Neuro:? Alert and orientated? sensation to touch intact in all extremities, no gross deficits noted of cranial nerves. Psych:? Patient has a well-kept appearance, appropriate affect, mental status attitude thought context and judgment are appropriate for age. Objective ECG Impression: Sinus tachycardia with LBBB. Labs 08/31/23 10:05 08/31/23 10:05 Labs: Laboratory Results - last 24 hr 08/31/23 10:05 WBC 11.1 H RBC 4.37 L Hgb 14.1 Hct 40.8 L MCV 93.5 MCH 32.2 MCHC 34.4 RDW 14.3 Plt Count 218 Neut % (Auto) 82.6 H Lymph % (Auto) 7.0 L [place] % (Auto) 10.1 Eos % (Auto) 0.1 L Baso % (Auto) 0.2 Neut # (Auto) 9200 H Lymph # (Auto) 800 L [place] # (Auto) 1100 H Eos # (Auto) 0 Baso # (Auto) 0 PT 11.5 INR 1.0 APTT 33 Sodium 135 L Potassium 4.2 Chloride 100 Carbon Dioxide 30 BUN 18 Creatinine 0.62 L Estimated GFR > 60 BUN/Creatinine Ratio 29.0 H Glucose 127 H Lactate 2.0 Calcium 8.9 Total Bilirubin 1.0 AST 34 ALT 25 Alkaline Phosphatase 83 Total Protein 7.8 Albumin 4.3 Globulin 3.5 Albumin/Globulin Ratio 1.2 Lipase 60 Procalcitonin 0.053 [facility] Medical History Type 2 diabetes mellitus without complication Primary osteoarthritis involving multiple joints Plantar fasciitis, right BPH (benign prostatic hyperplasia) KORI (obstructive sleep apnea) Osteoarthritis of left knee Hearing loss Asthma Anxiety Colon polyps Pulmonary nodule COPD (chronic obstructive pulmonary disease) Hypertension Hyperlipidemia Facet arthropathy, lumbar Pain of left patella 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 Social History household members: spouse Tobacco & Substance Use Smoking Status: Former smoker alcohol intake: current Assessment & Plan Assessment & Plan narrative: 1. Acute cystitis without hematuria - Patient is well appearing, with mildly elevated HR but SOFA score of 0 currently. He is eating and tolerating a diet. He has improving tachycardia and is hemodynamically stable without fever in the emergency room. Given tachycardia, discussed with patient spouse, discussed risks and benefits of observation in the hospital or discharge home. Patient elected for discharge home. Continue outpatient follow up with urology. - previous cultures with sensitive Klebsiella. Recommended ciprofloxacin on discharge for treatment of acute cystitis. 2. HTN -- recommended patinet hold his BP medications for 2 days, or resume if hypertensive at home. Chronic conditions: DM, GERD, HLD Code: Full, surrogate is patient's spouse DVT: Lovenox daily I have utilized all available immediate resources to obtain, update, or review the patient's current medications. Dispo: after risks and benefits discussion, patient elected for discharge home from the hospital. Additional history obtained via discussions with the ER provider. These discussions contributed to the creation of the above assessment and plan. I have reviewed patient's presenting documentation, labs, and imaging personally.
== END 2023-08-31 14:15 | disposition home or self-care (01) ==
PROVIDERS: Emergency Provider Emergency Medicine; Family Provider Family Medicine; PCP Family Medicine
DX: N39.0 Urinary tract infection, site not specified (principal); Z87.440 Personal history of urinary (tract) infections; R00.0 Tachycardia, unspecified; R30.0 Dysuria
CPT/HCPCS: 36415; 71045; 74176; 80053; 83605; 83690; 84145; 85025; 85610; 85730; 87040; 87077; 87086; 87186; 93005; 96365; 99284; J0696

== ENCOUNTER → 2023-10-20 13:19 | Outpatient (CLI) | payer MEDICARE, BC, SELFPAY ==
[2022-01-09 20:19] VITALS: BMI 24.7
[2023-10-20 13:53] LABS: Add Manual Diff / Slide Review NO; Basophils Absolute Auto 100 /uL (0-100); Basophils Percent Auto 1.1 % (0-2); Eosinophils Absolute Auto 200 /uL (0-450); Eosinophils Percent Auto 2.9 % (2-4); Hematocrit 40.2 % (41-53); Hemoglobin 13.9 g/dL (13.5-17.5); Lymphocytes Absolute Auto 2100 /uL (1100-4500); Lymphocytes Percent Auto 37.4 % (25-40); Mean Corpuscular HGB Conc 34.5 % (30-36); Mean Corpuscular Hemoglobin 33.5 PG (26-34); Monocytes Absolute Auto 700 /uL (0-900); Monocytes Percent Auto 12.2 % (3-14); Neutrophils Absolute Auto 2600 /uL (1500-7000); Neutrophils Percent Auto 46.4 % (50-75); Platelet Count 222 X10^3/uL (150-400); Red Blood Cell Count 4.14 X10^6/uL (4.5-5.9); Red Cell Distribution Width 15.5 % (11.6-14.8); White Blood Cell Count 5.7 X10^3/uL (4.5-11.0)
[2023-10-20 14:08] LABS: HEMOLYSIS < 15 (0-50); Iron 81 ug/dL (49-181)
[2023-10-20 14:10] LABS: Alanine Aminotransferase 25 IU/L (<50); Albumin 4.2 g/dL (3.5-5.0); Albumin Globulin Ratio 1.4 (1.0-2.8); Alkaline Phosphatase 76 U/L (38-126); Aspartate Aminotransferase 30 IU/L (17-59); BUN Creatinine Ratio 21.4 (6-22); Bilirubin Total 0.5 mg/dL (0.2-1.3); Blood Urea Nitrogen 15 mg/dL (9-20); Calcium 9.6 mg/dL (8.4-10.2); Carbon Dioxide 30 mmol/L (22-32); Chloride 102 mmol/L (98-107); Estimated Glomerular Filt Rate > 60 mL/min (>60); Glucose 105 mg/dL (80-110); HEMOLYSIS < 15 (0-50); Potassium 4.2 mmol/L (3.4-5.1); Sodium 138 mmol/L (137-145); Total Protein 7.2 g/dL (6.3-8.2)
[2023-10-20 14:26] LABS: Transferrin 254 mg/dL (206-381)
[2023-10-20 17:07] LABS: Appearance Urine UA CLEAR; Bilirubin Urine UA NEGATIVE (NEGATIVE); Color Urine UA YELLOW; Glucose Urine UA NEGATIVE (Negative); Ketones Urine UA NEGATIVE (NEGATIVE); Leukocyte Esterase Urine UA NEGATIVE (NEGATIVE); Nitrite Urine UA NEGATIVE (Negative); Occult Blood Urine UA NEGATIVE (Negative); Protein Urine UA NEGATIVE (Negative); pH Urine UA 6.5 (4.5-8.0)
[2023-10-20 17:12] LABS: Urine Volume 10mL (spun)
[2023-10-20 17:13] LABS: RBC Urine None Seen (0-5/HPF); WBC Urine None Seen (0-5/HPF)
[2023-10-20 17:14] LABS: Bacteria Urine None Seen; Culture Indicated Urine Cult Not Indicated; Squamous Epithelial Cell Urine 0-1 /HPF (0-5/HPF)
== END ==
PROVIDERS: Family Provider Family Medicine; PCP Family Medicine; Referring Provider Family Medicine; Visit Provider Family Medicine
DX: E11.9 Type 2 diabetes mellitus without complications (principal); A41.9 Sepsis, unspecified organism; N39.0 Urinary tract infection, site not specified; I25.10 Atherosclerotic heart disease of native coronary artery without angina pectoris; I10 Essential (primary) hypertension; D64.9 Anemia, unspecified
CPT/HCPCS: 36415; 80053; 81001; 83036; 83540; 83550; 85025

== ENCOUNTER → 2023-12-03 10:58 | Outpatient (CLI) | payer MEDICARE, BC, SELFPAY ==
[2022-01-09 20:19] VITALS: BMI 24.7
--- NOTE | 2023-12-03 11:00 | DI.RAD.S_ITS ---
PROCEDURE: XR KNEE LT 3V INDICATIONS: left knee pain TECHNIQUE: 3 views of the knee were acquired. COMPARISON: [facility], CR, XR KNEE LT 3V, 06/27/2020, 11:45. FINDINGS: Bones: There are no osseous abnormalities. Joints: Total knee prosthesis is anatomically aligned without loosening or infection. Small effusion noted. Soft tissues: Normal IMPRESSION: Small effusion-decreased from prior exam. Dictated by: Stalin Erickson M.D. on 12/06/2023 at 8:25 Approved by: Stalin Erickson M.D. on 12/06/2023 at 8:26
== END ==
PROVIDERS: Family Provider Family Medicine; PCP Family Medicine; Referring Provider Family Medicine; Visit Provider Family Medicine
DX: E11.42 Type 2 diabetes mellitus with diabetic polyneuropathy (principal); M25.562 Pain in left knee; M25.462 Effusion, left knee; G89.29 Other chronic pain; Z96.652 Presence of left artificial knee joint
CPT/HCPCS: 73562

== ENCOUNTER → 2024-05-22 10:58 | Outpatient (CLI) | payer MEDICARE, BC, SELFPAY ==
[2022-01-09 20:19] VITALS: BMI 24.7
[2024-05-22 11:31] LABS: Hemoglobin A1C% w Est Avg Glu 5.1 % (4.0-6.0)
[2024-05-22 12:00] LABS: Prostate Specific Antigen Scrn 8.06 ng/mL (0.1-4.0)
== END ==
LOC: LAB 10:59
PROVIDERS: Family Provider Family Medicine; PCP Family Medicine; Referring Provider Family Medicine; Visit Provider Family Medicine
DX: E11.9 Type 2 diabetes mellitus without complications (principal); Z12.5 Encounter for screening for malignant neoplasm of prostate; R97.20 Elevated prostate specific antigen [PSA]; C61 Malignant neoplasm of prostate; N39.0 Urinary tract infection, site not specified
CPT/HCPCS: 36415; 83036; G0103

== ENCOUNTER → 2024-05-23 08:16 | Outpatient (CLI) | payer MEDICARE, BC, SELFPAY ==
[2022-01-09 20:19] VITALS: BMI 24.7
--- NOTE | 2024-05-23 08:17 | DI.MRI.S_ITS ---
PROCEDURE: MR PELVIC PROSTATE PROTOCOL INDICATIONS: concerning prostate mass TECHNIQUE: Coronal HASTE, axial T1 FSE with fat saturation, 3-plane nonbreath-hold T2 FSE. After the administration of contrast, dynamic axial, delayed axial and coronal VIBE or 2-D FLASH with fat saturation through the pelvis. Diffusion weighted imaging and ADC was performed. COMPARISON: [facility], CT, CT KIDNEY URETER BLADDER (KUB), 08/31/2023, 11:13. Outside Film, CT, CT PELVIS WITH CONTRAST, 05/14/2024, 9:20. FINDINGS: Image quality: Diffusion weighted and dynamic contrast enhanced images are diagnostic. Prostate: Gland size is 5.9 x 5.4 x 4.3 cm; ellipsoid gland volume is 71 mL. No significant foci of intrinsic T1 hyperintensity to suggest hemorrhage. Multiple BPH nodules. Prior TURP. Lesion 1: Location: Right mid gland transitional zone Size: 3 x 1.8 cm, (415). T2W signal: Hypointense. 3 DWI signal: Mildly hyperintense. ADC signal: Moderately hypointense. Enhancement: Yes. Asymmetric compared to the left prostate. Extracapsular extension: No. No neurovascular involvement. PI-RADS score: 4 Genitourinary system: Bladder wall appears trabeculated. Distal ureters are non distended. Bowel and peritoneum: No pathologic free pelvic fluid. Inferior colon and small bowel loops are normal in caliber. Nodes and vessels: No pelvic or inguinal adenopathy by size criteria. Iliac vessels are normal in caliber. Soft tissues: No inguinal hernias. Bones: Bones appear heterogeneous. IMPRESSION: 1. Prostatomegaly. Multiple BPH nodules. Prior TURP. 2. Right mid gland transitional zone observation measuring 3 cm. PI-RADS 4. 3. No enlarged lymph nodes. 4. Bones appear heterogeneous. Dictated by: Andrey Espinal M.D. on 05/23/2024 at 12:09 Approved by: Andrey Espinal M.D. on 05/23/2024 at 12:26
== END ==
PROVIDERS: Family Provider Family Medicine; PCP Family Medicine; Referring Provider Family Medicine; Visit Provider Family Medicine
DX: C61 Malignant neoplasm of prostate (principal); R97.20 Elevated prostate specific antigen [PSA]; N39.0 Urinary tract infection, site not specified
CPT/HCPCS: 72197; A9579

== ENCOUNTER → 2024-05-26 08:17 | Outpatient (CLI) | payer MEDICARE, BC, SELFPAY ==
[2022-01-09 20:19] VITALS: BMI 24.7
--- NOTE | 2024-05-26 08:19 | DI.US.S_ITS ---
PROCEDURE: US ABD AORTA ANEURYSM SCREEN INDICATIONS: AAA ON CT TECHNIQUE: Real-time scanning was performed of the aorta and proximal common iliac arteries, with image documentation. COMPARISON: [facility], CT, CT KIDNEY URETER BLADDER (KUB), 08/31/2023, 11:13. Outside Film, CT, CT PELVIS WITH CONTRAST, 05/14/2024, 9:20. FINDINGS: Aorta: Proximal: 1.9 cm. Mid: 2 cm. Distal: 3.3 x 3 cm. Atherosclerotic plaque is present. Iliacs: RCIA: 1 cm. LCIA: 1 cm. IMPRESSION: Infrarenal abdominal aortic aneurysm measuring up to 3.3 cm. Not significantly changed. Recommend follow-up aortic imaging in 3 years. Dictated by: Andrey Espinal M.D. on 05/26/2024 at 8:25 Approved by: Andrey Espinal M.D. on 05/26/2024 at 8:29
== END ==
PROVIDERS: Family Provider Family Medicine; PCP Family Medicine; Referring Provider Family Medicine; Visit Provider Family Medicine
DX: I71.9 Aortic aneurysm of unspecified site, without rupture (principal); I70.0 Atherosclerosis of aorta
CPT/HCPCS: 76706

== ENCOUNTER → 2024-07-10 10:17 | Outpatient (CLI) | payer MEDICARE, BC, SELFPAY ==
[2022-01-09 20:19] VITALS: BMI 24.7
[2024-07-10 11:28] LABS: Prostate Specific Antigen 4.85 ng/mL (0.10-4.00)
== END ==
PROVIDERS: Family Provider Family Medicine; PCP Family Medicine; Referring Provider Family Medicine; Visit Provider Urology
DX: N40.1 Benign prostatic hyperplasia with lower urinary tract symptoms (principal); R97.20 Elevated prostate specific antigen [PSA]
CPT/HCPCS: 36415; 51798; 81002; 84153; 99214

== ENCOUNTER → 2024-07-18 15:16 | Outpatient (CLI) | payer MEDICARE, BC, SELFPAY ==
[2024-07-18 11:48] VITALS: BMI 24.7
--- NOTE | 2024-07-18 15:18 | DI.RAD.S_ITS ---
PROCEDURE: XR CHEST 2V INDICATIONS: chest tightness with left arm movement TECHNIQUE: 2 views of the chest were acquired. COMPARISON: [facility], CR, XR CHEST 1V, 08/31/2023, 10:01. FINDINGS: Heart, mediastinum and pulmonary vascular: Heart is normal in size and configuration. Mediastinum is unremarkable. Pulmonary vascular is normal. 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 on 07/19/2024 at 16:53 Approved by: Stalin Erickson M.D. on 07/19/2024 at 16:54
== END ==
PROVIDERS: Family Provider Family Medicine; PCP Family Medicine; Referring Provider Family Medicine; Visit Provider Family Medicine
DX: M51.34 Other intervertebral disc degeneration, thoracic region (principal); R07.89 Other chest pain
CPT/HCPCS: 71046

== ENCOUNTER → 2024-09-06 07:44 | Outpatient (CLI) | payer MEDICARE, BC, SELFPAY ==
[2024-08-23 09:27] VITALS: BMI 24.7
--- NOTE | 2024-09-06 07:48 | DI.NM.S_ITS ---
PROCEDURE: NM ONI PERF SPECT R&S PHARM Rest and pharmacological stress myocardial perfusion SPECT with gated imaging and ejection fraction RADIOPHARMACEUTICAL: 11.5 mCi Tc-99m tetrafosmin IV at rest and 25.7 mCi Tc-99m tetrafosmin IV at peak effect of pharmacological stress. [id number] was performed. INDICATIONS: exertional chest pain PQRS ATTESTATIONS: Measure 322 - Is this imaging test primarily performed on a low-risk surgery patient for preoperative evaluation within 30 days preceding their low-risk non-cardiac surgery? Low-risk surgery is defined as cardiac or myocardial infarction less than 1%, including (but not limited to) endoscopic procedures, superficial procedures, cataract surgery, and excisional breast surgery: Answer: No Measure 323 - Is this imaging test performed primarily for the monitoring of an asymptomatic patient who had percutaneous coronary intervention on the visit date or within 2 years of the visit date? Answer: No Measure 324 - Is this imaging test performed primarily for the initial detection and risk assessment on an asymptomatic, low coronary heart disease patient? Low CHD risk definition = clinicians should consider the maximum number of available patient factors used to estimate risk based on [place] (ATP III criteria), typically age, gender, diabetes, smoking status, and use of blood pressure medication, and integrate age appropriate estimates for missing elements, such as LDL or standard blood pressure. Answer: No TECHNIQUE: Radiopharmaceutical was injected at peak stress test, and also at rest. SPECT images were obtained. SPECT myocardial perfusion images were displayed in short axis, horizontal long axis, and vertical long axis views. Gated images were reviewed using [employer] software. COMPARISON: None. CARDIAC STRESS: A pharmacologic stress test was performed under the supervision of an attending staff, using an infusion of 0.4 mg of Lexiscan.. Hemodynamic data: There is normal blood pressure and heart rate response to pharmacologic stress. Symptoms: The patient denied anginal chest pain. Aminophylline: None EKG: No diagnostic changes of ischemia; no ectopy. FINDINGS: Raw data: There is good myocardial uptake of radiotracer. No significant motion artifacts. Zkrw-dh-[id number] ratio is not calculated (normal is less than 0.38 for tetrafosmin tracer). Left ventricle function: Gated images demonstrate normal left ventricular wall thickening. No segmental wall motion abnormalities. No transient ischemic dilation; TID is 0.80 (normal less than 1.3). Left ventricle resting end diastolic volume is 63 mL. Left ventricle stress ejection fraction is 95%; normal range is above 45%. Myocardial perfusion: There is normal distribution of activity in the right and left ventricular myocardium. No fixed or reversible perfusion defects. IMPRESSION: 1. Negative Lexiscan myocardial perfusion scan for ischemia and infarction. 2. No changes when compared with previous study. Dictated by: Laci Escoto M.D. on 09/06/2024 at 16:56 Approved by: Laci Escoto M.D. on 09/06/2024 at 16:58
== END ==
LOC: NUCM 07:47
PROVIDERS: Family Provider Family Medicine; PCP Family Medicine; Referring Provider Family Medicine; Visit Provider Family Medicine
DX: R07.89 Other chest pain (principal); R07.9 Chest pain, unspecified
CPT/HCPCS: 78452; 93017; A9502; J2785

== ENCOUNTER → 2024-10-12 13:33 | Outpatient (CLI) | payer MEDICARE, BC, SELFPAY ==
[2024-08-23 09:27] VITALS: BMI 24.7
[2024-10-12 14:08] LABS: Add Manual Diff / Slide Review NO; Hematocrit 40.0 % (41-53); Hemoglobin 13.9 g/dL (13.5-17.5); Lymphocytes Absolute Auto 2000 /uL (1100-4500); Mean Corpuscular HGB Conc 34.8 % (30-36); Mean Corpuscular Hemoglobin 33.0 PG (26-34); Mean Corpuscular Volume 94.9 fL (80-100); Platelet Count 215 X10^3/uL (150-400)
[2024-10-12 14:34] LABS: Alanine Aminotransferase 19 IU/L (<50); Albumin 4.3 g/dL (3.5-5.0); Albumin Globulin Ratio 1.5 (1.0-2.8); Alkaline Phosphatase 69 U/L (38-126); Blood Urea Nitrogen 16 mg/dL (9-20); Calcium 9.2 mg/dL (8.4-10.2); Carbon Dioxide 27 mmol/L (22-32); Chloride 101 mmol/L (98-107); Cholesterol 179 mg/dL (140-199); Estimated Glomerular Filt Rate > 60 mL/min (>60); Globulin 2.9 g/dL (1.7-4.1); Glucose 82 mg/dL (70-99); HDL Cholesterol 76 mg/dL (40-60); HEMOLYSIS 30 (0-50); Hemoglobin A1C% w Est Avg Glu 5.5 % (4.0-6.0); Potassium 4.2 mmol/L (3.4-5.1); Sodium 137 mmol/L (137-145); Total Protein 7.2 g/dL (6.3-8.2); Triglycerides 103 mg/dL (35-150)
[2024-10-12 15:06] LABS: TSH w/ Reflex to FT4 1.13 uIU/mL (0.47-4.68)
[2024-10-12 15:23] LABS: Prostate Specific Antigen 4.50 ng/mL (0.10-4.00)
== END ==
PROVIDERS: Urology; PCP Family Medicine; Referring Provider Family Medicine; Visit Provider Family Medicine
DX: R97.20 Elevated prostate specific antigen [PSA] (principal); I10 Essential (primary) hypertension; M47.27 Other spondylosis with radiculopathy, lumbosacral region; E78.5 Hyperlipidemia, unspecified
CPT/HCPCS: 36415; 80053; 80061; 83036; 84153; 84443; 85025

== ENCOUNTER → 2024-11-09 11:02 | Outpatient (CLI) | payer MEDICARE, BC, SELFPAY ==
[2024-08-23 09:27] VITALS: BMI 24.7
[2024-11-09 13:11] LABS: Appearance Urine UA CLEAR; Bilirubin Urine UA NEGATIVE (NEGATIVE); Color Urine UA YELLOW; Glucose Urine UA NEGATIVE (Negative); Ketones Urine UA NEGATIVE (NEGATIVE); Leukocyte Esterase Urine UA NEGATIVE (NEGATIVE); Nitrite Urine UA NEGATIVE (Negative); Occult Blood Urine UA NEGATIVE (Negative); Protein Urine UA NEGATIVE (Negative); Specific Gravity Urine UA 1.010 (1.000-1.035); Urobilinogen Urine UA 0.2 E.U./dL (0.2); pH Urine UA 7.0 (4.5-8.0)
[2024-11-09 13:20] LABS: Culture Indicated Urine Cult Not Indicated
== END ==
PROVIDERS: Urology; PCP Family Medicine; Referring Provider Family Medicine; Visit Provider Family Medicine
DX: N39.0 Urinary tract infection, site not specified (principal)
CPT/HCPCS: 81001

== ENCOUNTER → 2025-01-27 11:05 | Outpatient (CLI) | payer MEDICARE, BC, SELFPAY ==
[2024-08-23 09:27] VITALS: BMI 24.7
--- NOTE | 2025-01-27 11:07 | DI.RAD.S_ITS ---
PROCEDURE: XR LUMBAR SPINE MIN 4V INDICATIONS: BACK PAIN TECHNIQUE: 5 views of the lumbar spine were acquired, including bilateral oblique views. COMPARISON: [facility], CR, XR LUMBAR SPINE MIN 4V, 05/25/2018, 12:57. FINDINGS: Bones: 5 nonrib-bearing vertebrae are present. There is normal bony alignment. No vertebral body compression fractures. No suspicious bony lesions. Disc space narrowing and hypertrophic facet joints noted particularly in the lower spine. Soft tissues: Atherosclerotic vascular calcification associated with 3.3 cm distal abdominal aortic aneurysm. Oblique images: No pars defects. IMPRESSION: Abdominal aortic aneurysm, 3.3 cm Degenerative disc disease and arthropathy. No fracture. Approved by: Alejandro Ingram M.D. on 01/27/2025 at 10:46
== END ==
PROVIDERS: PCP Family Medicine; Referring Provider Physical Medicine & Rehabilitation; Visit Provider Physical Medicine & Rehabilitation
DX: M47.27 Other spondylosis with radiculopathy, lumbosacral region (principal); M51.369 Other intervertebral disc degeneration, lumbar region without mention of lumbar back pain or lower extremity pain; M47.816 Spondylosis without myelopathy or radiculopathy, lumbar region; I71.40 Abdominal aortic aneurysm, without rupture, unspecified
CPT/HCPCS: 72110

== ENCOUNTER → 2025-01-30 15:31 | Outpatient (CLI) | payer MEDICARE, BC, SELFPAY ==
[2024-08-23 09:27] VITALS: BMI 24.7
--- NOTE | 2025-01-30 15:34 | DI.RAD.S_ITS ---
PROCEDURE: XR CHEST 2V INDICATIONS: itching x 2 months TECHNIQUE: 2 views of the chest were acquired. COMPARISON: [facility], CR, XR CHEST 1V, 11/02/2024, 12:24. FINDINGS: Surgical changes and devices: None. Lungs and pleura: Lungs are clear. No pleural effusions or pneumothorax. Mediastinum: Mediastinal contours are normal. Heart size is normal. Bones and chest wall: No suspicious bony abnormalities. 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 Soft tissues appear unremarkable. IMPRESSION: No acute cardiopulmonary abnormality is seen. Dictated by: Efrain Bowman M.D. on 01/30/2025 at 16:09 Approved by: Efrain Bowman M.D. on 01/30/2025 at 16:10
[2025-01-30 16:04] LABS: Add Manual Diff / Slide Review NO; Hematocrit 41.7 % (41-53); Hemoglobin 14.6 g/dL (13.5-17.5); Lymphocytes Absolute Auto 1300 /uL (1100-4500); Mean Corpuscular HGB Conc 35.0 % (30-36); Mean Corpuscular Hemoglobin 32.0 PG (26-34); Mean Corpuscular Volume 91.5 fL (80-100); Platelet Count 214 X10^3/uL (150-400)
[2025-01-30 16:32] LABS: Alanine Aminotransferase 20 IU/L (<50); Albumin 4.3 g/dL (3.5-5.0); Albumin Globulin Ratio 1.4 (1.0-2.8); Alkaline Phosphatase 76 U/L (38-126); Blood Urea Nitrogen 18 mg/dL (9-20); Calcium 9.4 mg/dL (8.4-10.2); Carbon Dioxide 27 mmol/L (22-32); Chloride 104 mmol/L (98-107); Estimated Glomerular Filt Rate > 60 mL/min (>60); Globulin 3.0 g/dL (1.7-4.1); Glucose 107 mg/dL (70-99); HEMOLYSIS 40 (0-50); Potassium 4.5 mmol/L (3.4-5.1); Sodium 139 mmol/L (137-145); Total Protein 7.3 g/dL (6.3-8.2)
[2025-01-30 16:33] LABS: Hemoglobin A1C% w Est Avg Glu 5.3 % (4.0-6.0)
[2025-01-30 17:01] LABS: TSH w/ Reflex to FT4 0.64 uIU/mL (0.47-4.68)
[2025-01-30 17:06] LABS: Vitamin D 25 Hydroxy (D3) 48.9 ng/mL (30.0-100.0)
[2025-01-30 17:20] LABS: Vitamin B12 497 pg/mL (239-931)
[2025-01-30 17:46] LABS: Hep C Virus Ab w/Reflex Quant NEGATIVE s/c (NEGATIVE)
[2025-01-31 10:06] LABS: Ferritin 71 ng/mL (18-464)
== END ==
PROVIDERS: PCP Family Medicine; Referring Provider Physician Assistant; Visit Provider Physician Assistant
DX: L29.9 Pruritus, unspecified (principal)
CPT/HCPCS: 36415; 71046; 80053; 82306; 82607; 82728; 83036; 84443; 85025; 86803

== ENCOUNTER → 2025-02-22 09:06 | Outpatient (CLI) | payer MEDICARE, BC, SELFPAY ==
[2024-08-23 09:27] VITALS: BMI 24.7
[2025-02-22 09:49] LABS: Appearance Urine UA CLEAR; Bilirubin Urine UA NEGATIVE (NEGATIVE); Color Urine UA YELLOW; Glucose Urine UA NEGATIVE (Negative); Ketones Urine UA NEGATIVE (NEGATIVE); Leukocyte Esterase Urine UA 1+ (NEGATIVE); Nitrite Urine UA NEGATIVE (Negative); Occult Blood Urine UA 1+ (Negative); Protein Urine UA NEGATIVE (Negative); Specific Gravity Urine UA 1.015 (1.000-1.035); Urobilinogen Urine UA 1.0 E.U./dL (0.2); pH Urine UA 7.5 (4.5-8.0)
[2025-02-22 10:01] LABS: Culture Indicated Urine Specimen Cultured
[2025-02-22 10:15] LABS: Alanine Aminotransferase 18 IU/L (<50); Albumin 4.3 g/dL (3.5-5.0); Albumin Globulin Ratio 1.4 (1.0-2.8); Alkaline Phosphatase 83 U/L (38-126); Blood Urea Nitrogen 14 mg/dL (9-20); Calcium 9.5 mg/dL (8.4-10.2); Carbon Dioxide 30 mmol/L (22-32); Chloride 99 mmol/L (98-107); Estimated Glomerular Filt Rate > 60 mL/min (>60); Globulin 3.1 g/dL (1.7-4.1); Glucose 122 mg/dL (70-99); HEMOLYSIS < 15 (0-50); Potassium 4.5 mmol/L (3.4-5.1); Sodium 136 mmol/L (137-145); Total Protein 7.4 g/dL (6.3-8.2)
[2025-02-22 10:47] LABS: Prostate Specific Antigen 8.70 ng/mL (0.10-4.00)
== END ==
PROVIDERS: PCP Family Medicine; Referring Provider Urology; Visit Provider Urology
DX: R97.20 Elevated prostate specific antigen [PSA] (principal); N40.1 Benign prostatic hyperplasia with lower urinary tract symptoms; L23.9 Allergic contact dermatitis, unspecified cause; J44.89 Other specified chronic obstructive pulmonary disease; I10 Essential (primary) hypertension; E78.2 Mixed hyperlipidemia; E11.9 Type 2 diabetes mellitus without complications; N39.0 Urinary tract infection, site not specified
CPT/HCPCS: 36415; 80053; 81001; 84153; 87077; 87086

== ENCOUNTER → 2025-03-05 12:46 | Outpatient (CLI) | payer MEDICARE, BC, SELFPAY ==
[2024-08-23 09:27] VITALS: BMI 24.7
== END ==
PROVIDERS: PCP Family Medicine; Visit Provider Nurse Practitioner Family
DX: R35.89 Other polyuria (principal)
CPT/HCPCS: 87086